=== PATIENT | female | born 1940 | race Caucasian/White ===

== ENCOUNTER → 2016-08-25 | Outpatient (CLI) | payer OTHER ==
[~2016-08-25] VITALS: Ht 152.4 cm; Wt 47.2 kg
[~2016-08-25] MED LIST: ANACIN; ANACIN 400-321 EACH PO; ASPIRIN325 PO; BUTRANS1 EAC1 TD; CARDIZEM CD120 MG PO; CARDIZEM CD180 MG PO; CARDIZEM CD300 MG PO; CIPRO500 MG PO; CIPROFLOXACIN500 M3 PO; COLCRYS0.6 MG PO; DEMADEX10 MG PO; DEMADEX20 MG PO; DILTIAZEM ER180 M1 PO; DYAZIDE 37.5-21 EACH PO; FENTANYL PA12 MCG/HR TD; FLOVENT HFA 2220 MC1 IH; FLOVENT HFA 2220 MC1 INH; FLOVENT HFA10.6 GM; FORTEO; GLYCOLAX POWDER17 G1 PO; HYDROCODON-ACE1 EAC5 PO; HYDROCODONE-AP1 EAC6 PO; INFED100 MG/2 M IV; KCLP 20 MEQ2 MEQ/ML IV; LASIX 40 MG TAB40 M1 PO; LEVOXYL50 MCG PO; LEVOXYL75 MCG PO; LORTAB 7.5-3251 EACH PO; METOLAZONE 2.52.5 M1 PO; METRONIDAZOLE500 M4 PO; MIRALAX17 GM PO; MIRALAX255 GM PO; MOVANTIK25 MG PO; MS CONTIN15 MG PO; NASONEX17 GM NASAL; NEXIUM40 M2 PO; NEXIUM40 MG PO; NITRO SL; NITROSTAT0.4 M1 SUBLING; NORCO 10-325 T1 EACH PO; NORCO 5-325 TA1 EACH PO; PACERONE 200 M200 M1 PO; POTASSIUM CHLORIDE PO; POTASSIUM20 MEQ/15 PO; POTASSIUM20 PO; PREDNISONE 10 M10 M1 PO; PREDNISONE 20 M20 M1 PO; PREDNISONE 5 MG5 M1 PO; PREDNISONE 5 MG5 MG PO; PREMARIN PO; PREMARIN1.25 MG PO; PROVENTIL HFA6.7 G1 INH; PROVENTIL INH; RIFAMPIN 300 M300 M1 PO; TIGAN300 MG PO; TIZANIDINE HCL4 MG PO; TRAMADOL 50 MG50 MG PO; TRAVATAN 0.004%5 ML OPHTHALMIC; TRAVATAN 0.004%5 ML OTIC; TRAVATAN Z5 ML OP; TRAVATAN Z5 ML OPHTHALMIC; TRAVOPROST 0.02.5 ML OPHTHALMIC; ULORIC40 MG PO; VALIUM5 MG PO; VITAMIN B-121000 MC1 IM; VITAMIN D2000 UNIT PO; VOLTAREN GEL 1100 G1 TOP; ZITHROMAX PO
--- NOTE | ~2016-08-25 | HPC ---
[facility] [place] [address] PAIN MANAGEMENT CONSULTATION Name: MASTERJACOBO DILLAN Room #: REG ASIA Shah#: [id number] Admission: 08/25/16 Attend Phys: Dwight Wharton DO Discharge: Date of : 41 Report #: [id number] THIS REPORT FOR: //name// CC: Oral Wharton The patient is a very pleasant 75-year-old female being treated for symptomatic lumbar radiculopathy status post decompressive laminectomy, chronic pain syndrome requiring complex medication management. Last seen in pain clinic on 07/01/2016, continued on baseline medication including MS Contin 15 mg b.i.d., hydrocodone 5/325 2-3 tablets a day, tizanidine was added 4 mg t.i.d., unfortunately this afforded significant nausea and vomiting, and the patient discontinued that medication. She is having some ongoing pain in the right foot. Unfortunately, she has been dissuaded from surgery, which was going to be an amputation of the toe. She is, however, following up the for consideration for colon resection due to significant diverticulitis. She has had at least 3 major bouts requiring hospitalization in the past several years. She has multiple comorbidities; however, and may not be a very good surgical candidate overall. She notes current pain from the back and chronic pain issues is generally is well controlled is ever typically 5 on a 0-10 visual analog scale. Pain primarily in the low back, right hip and groin. Physical exam shows 75-year-old female, BMI is up today 20.3 kilograms per meter squared, last visit she was down about 19.4 kilograms per meter squared. Vital signs stable as noted in the EMR. Alert and oriented to person, place and time, judged to be a reasonable historian. Rises from chair using armrest, moderately antalgic gait, diffuse tenderness across the low back. Slight decreased right hip flexion strength. ASSESSMENT: Symptomatic lumbar radiculopathy status post decompressive laminectomy, chronic pain syndrome requiring complex medication management, stable on baseline medications. We reviewed the fact that opiate medications are being used to provide analgesia adequate to support activities of daily living, not attempting to achieve a specific pain score on the 0-10 Visual Analog Scale. The current opiate medications are providing sufficient analgesia to allow the patient to participate in activities of daily living. The patient is not exhibiting any aberrant behavior suggestive of drug diversion. The patient is not having any adverse reactions to medications. The patient is not suffering from daytime somnolence or mental acuity changes. The patient is managing opiate-induced constipation with appropriate xlon-tkb-dzhzfku agents and dietary considerations. The patient was counseled on concern for caution with operating a motor vehicle while using opiate medications. [address] [address] PAIN MANAGEMENT CONSULTATION Name: JACOBO THAO Room #: REG CL Pablo#: [id number] Admission: 08/25/16 Attend Phys: Dwight Wharton DO Discharge: Date of : 41 Report #: [id number] A physical exam was performed and the patient's functional status was evaluated. All patients with back pain were advised against the bed rest greater than 4 days and were advised to return to normal activities. Pain score assessment was noted and the treatment plan was reviewed with the patient. All current medications, both prescribed and OTC were reviewed and reconciled on the electronic medical record. Tobacco screening was accomplished and smoking cessation was advised when indicated. BMI was noted and diet/exercise modification was recommended for all patients following outside normal parameters. I reviewed with the patient today their responsibilities to safeguard prescription medications, reviewed their responsibility to utilize medications only as prescribed by the physician. They are to seek and receive pain medications only from 1 physician group ( [facility]). They are to use 1 pharmacy and keep the clinic informed if they change pharmacies. Their responsibilities include making followup visits in a timely fashion and to avoid abrupt discontinuation of medication usage. Their responsibilities further include bringing their medications (bottles from the pharmacy with residual pills) to the visit for possible confirmation of pill counts and the patient understands it is their responsibility to submit to random drug screens to ensure both that the medications prescribed are present, and that no other controlled substances are present. All prescriptions provided today were generated electronically. RECOMMENDATION: Continue MS Contin 15 mg b.i.d., hydrocodone 5/325 75 tablets for 30 days. Discontinue tizanidine due to nausea and vomiting. Follow up in 2 months for reevaluation, earlier if needed. <ELECTRONICALLY SIGNED> By: Dwight Wharton DO 08/29/16 1228 1621 0355 Dwight Wharton DO /nt
[2016-08-25 14:12] VITALS: BP 139/79
== END | disposition home or self-care (01) ==
LOC: PAIN 07-15 11:51
DX: M54.16 Radiculopathy, lumbar region (principal); G89.4 Chronic pain syndrome; M25.571 Pain in right ankle and joints of right foot; Z98.890 Other specified postprocedural states

== ENCOUNTER → 2016-11-07 | Outpatient (CLI) | payer OTHER ==
[~2016-11-07] VITALS: Ht 154.9 cm; Wt 48.3 kg
--- NOTE | ~2016-11-07 | HPC ---
[facility] [place] [address] PAIN MANAGEMENT CONSULTATION Name: JACOBO THAO Room #: REG SAIA Shah#: [id number] Admission: 11/07/16 Attend Phys: Dwight Wharton DO Discharge: Date of : 41 Report #: [id number] THIS REPORT FOR: //name// CC: Oral Wharton The patient is a 75-year-old female being treated for symptomatic lumbar radiculopathy status post decompressive laminectomy, neuropathic pain, chronic pain syndrome requiring complex medication management. She was last seen in the pain clinic 08/25/2016 to continue her baseline medication. She returns to pain clinic today in the presence of her who is supportive. We had a prolonged visit from 12:00 to approximately 12:30 greater than 50% of the 25+ minute visit was spent counseling the patient. Pain continues in the low back, right SI area. She has a moderately antalgic gait. She notes she has been having some increasing trouble with chronic diverticulitis and is tentatively scheduled to have a colon resection with a temporary colostomy later this week. She is here for medication refill, noting pain in the low back, hips, right groin with generalized abdominal pain, chronic burning, sharp pain. She rates "10" 0-10 on a visual analog scale. Denies specific myelopathic symptoms at this time. We reviewed her extensive surgical and medical history well-documented on the chart. PHYSICAL EXAMINATION: Shows 75-year-old female with a BMI of 20.1 kg/m2. Again, subjective pain score "10" on a 0-10 visual analog scale. Vital signs generally stable as noted on the EMR. Does not use tobacco products, history of clinical depression. Rises from the chair using armrest. Gait is antalgic favoring the right low back. Positive tenderness over the SI joints. Positive Yina test, positive straight leg raise on the right. Exquisitely tender over the right SI joint. We reviewed the fact that opiate medications are being used to provide analgesia adequate to support activities of daily living, not attempting to achieve a specific pain score on the 0-10 Visual Analog Scale. The current opiate medications are providing sufficient analgesia to allow the patient to participate in activities of daily living. The patient is not exhibiting any aberrant behavior suggestive of drug diversion. The patient is not having any adverse reactions to medications. The patient is not suffering from daytime somnolence or mental acuity changes. The patient is managing opiate-induced constipation with appropriate musx-xnu-hphhsaf agents and dietary considerations. The patient was counseled on concern for caution with operating a motor vehicle while using opiate medications. A physical exam was performed and the patient's functional status was evaluated. All patients with back pain were advised against the bed rest greater than [address] [place] [address] PAIN MANAGEMENT CONSULTATION Name: JACOBO THAO Room #: REG ASIA Shah#: [id number] Admission: 11/07/16 Attend Phys: Dwight Wharton DO Discharge: Date of : 41 Report #: [id number] and were advised to return to normal activities. Pain score assessment was noted and the treatment plan was reviewed with the patient. All current medications, both prescribed and OTC were reviewed and reconciled on the electronic medical record. Tobacco screening was accomplished and smoking cessation was advised when indicated. BMI was noted and diet/exercise modification was recommended for all patients following outside normal parameters. I reviewed with the patient today their responsibilities to safeguard prescription medications, reviewed their responsibility to utilize medications only as prescribed by the physician. They are to seek and receive pain medications only from 1 physician group ( [facility]). They are to use 1 pharmacy and keep the clinic informed if they change pharmacies. Their responsibilities include making followup visits in a timely fashion and to avoid abrupt discontinuation of medication usage. Their responsibilities further include bringing their medications (bottles from the pharmacy with residual pills) to the visit for possible confirmation of pill counts and the patient understands it is their responsibility to submit to random drug screens to ensure both that the medications prescribed are present, and that no other controlled substances are present. All prescriptions provided today were generated electronically. Pain impact score is /70. Opiate risk assessment score is in the low risk. RECOMMENDATION: 1. Continue MS Contin 15 mg b.i.d., hydrocodone 5/325 one tablet 2-3 times a day, 75 tablets for 30 days, Nexium 40 mg daily, tizanidine 4 mg half to 1-3 times a day. 2. We will be happy to consider the patient for right SI and/or lumbar epidural injection at next visit. However, we would want to wait at least a full 6 weeks after surgery. 3. Two months of current medications were given to the patient today, follow up as needed. By: 1741 0811 Dwight Wharton DO /nt
[2016-11-07 11:11] VITALS: BP 145/84
== END ==
LOC: PAIN 06:51
DX: M54.16 Radiculopathy, lumbar region (principal); G62.9 Polyneuropathy, unspecified; G89.4 Chronic pain syndrome

== ENCOUNTER → 2016-11-11 | Outpatient (CLI) | payer OTHER ==
[~2016-11-11] VITALS: Ht 154.9 cm; Wt 48.1 kg
--- NOTE | ~2016-11-11 | HPC ---
[facility] [place] [address] [place] [address] PAIN MANAGEMENT CONSULTATION Name: MASTERJACOBO Room #: REG Getachew Shah#: [id number] Admission: 11/11/16 Attend Phys: Dwight Wharton DO Discharge: Date of : 41 Report #: [id number] THIS REPORT FOR: //name// CC: Oral Wharton DATE OF SERVICE: 11/11/2016 The patient is a very pleasant 75-year-old female last seen in the pain clinic 11/07/2016, typically treated for lumbar radiculopathy status post decompressive laminectomy, neuropathic pain component, SI joint dysfunction, lumbosacral spondylosis, requiring complex medication management. We had continued the patient on baseline medication at last visit. We are planning on proceeding with interventional therapy, but ostensibly, she was scheduled for colon resection this week. She will be followed up with her GI doctor. Apparently, CT scan is showing resolution of diverticular symptoms and they have elected to postpone her bowel surgery. She presents to pain clinic today with ongoing pain across the low back radiating to the groin bilaterally, does not radiate below the hips. PHYSICAL EXAMINATION: Shows positive Yina test bilaterally with tenderness over the SI joints. We would like to proceed with interventional therapy today. Continue baseline medication unchanged. ASSESSMENT: Symptomatic sacroiliac joint dysfunction, lumbosacral spondylosis. PROCEDURE: Bilateral SI joint injections under fluoroscopy. PROCEDURE NOTE: After written and informed consent was obtained including risk of infection, nerve trauma, increased pain and weakness, the patient wishes to proceed. The patient was taken to the fluoroscopy suite, placed in the prone position. The sacroiliac joint was visualized using the C-arm, turned in an oblique fashion to align the joint. The skin overlying the area was cleansed with ChloraPrep. Skin wheal with Xylocaine was raised. A 22 gauge spinal needle was inserted into the inferior aspect of the joint. A low volume extension tubing was then attached to the needle after the stylet was removed. Negative aspiration was accomplished. A 1 mL of Omnipaque was injected which showed spread within the SI joint. 40 mg triamcinolone plus 2 mL of 0.5% preservative-free bupivacaine was injected into the joint. Needle was removed. Attention was then turned to the contralateral joint which was treated in an identical fashion. After both needles were removed the prep was washed off. Two Band-Aids were applied over the puncture sites. The patient was allowed to ambulate to the recovery room, monitored for an appropriate period of time, discharged [place] [address] PAIN MANAGEMENT CONSULTATION Name: MASTERJACOBO GRIMALDO Room #: REG [facility] Pablo#: [id number] Admission: 11/11/16 Attend Phys: Dwight Wharton DO Discharge: Date of : 41 Report #: [id number] Fluoroscopy time was 4 seconds. <ELECTRONICALLY SIGNED> By: Dwight Wharton DO 11/14/16 0750 0858 1039 Dwight Wharton DO /nt
[2016-11-11 08:17] VITALS: BP 141/73
== END ==
LOC: PAIN 07:05
DX: M53.3 Sacrococcygeal disorders, not elsewhere classified (principal); M54.16 Radiculopathy, lumbar region; G62.9 Polyneuropathy, unspecified; M47.817 Spondylosis without myelopathy or radiculopathy, lumbosacral region

== ENCOUNTER 2017-01-10 08:08 | Inpatient (IN) | payer OTHER ==
[~2017-01-10] VITALS: Ht 152.4 cm; Wt 48.8 kg
[2017-01-10] VITALS (29 sets, daily range): BP systolic 103–179; BP diastolic 63–108
--- NOTE | ~2017-01-10 | EKG ---
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 Electronically Signed On 01-10-2017 21:56:19 CDT by Jd Dyson [email or web address] <ELECTRONICALLY SIGNED> By: Jd Dyson MD 01/10/17 2156 0835 0835 MD DEBBY Villafana
--- NOTE | ~2017-01-10 | EKG ---
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
--- NOTE | ~2017-01-10 | 2DMMODE ---
[facility] [address] [place] [address] 2 D/M-MODE ECHOCARDIOGRAM Name: MASTERJACOBO GRIMALDO Room #: 250-P ADM IN M.R.#: [id number] Admission: 01/10/17 Attend Phys: Reji Pyle Discharge: Date of : 42 Date of Service: 01/10/17 1624 Report #: [id number] THIS REPORT FOR: //name// APPROVED REPORT Study performed: 01/10/2017 14:49:32 EXAM: Comprehensive 2D, Doppler, and color-flow Echocardiogram Patient Location: Bedside Room #: 250 Status: routine Other Information Study Quality: Adequate Indications CVA. Hx: Pacemaker, TIA, Afib, HTN Echo Enhancing Agent Indication: Rule out Shunt Agent(s) / Amount(s) Used: Agitated Saline 6 cc 2D Dimensions RVDd: 31.98 mm LVEF(%): 58.53 (>50%) IVSd: 11.47 (7-11mm) LVOT Diam: 19.53 (18-24mm) LVDd: 41.37 mm PWd: 9.70 (7-11mm) Ascending Ao: 27.57 (22-36mm) LVDs: 28.72 (25-40mm) Aortic Root: 29.77 mm Dougherty's LVEF: 58.53 % Volumes Left Atrial Volume (Systole) Single Plane 4CH: 14.93 mL Single Plane 2CH: 34.58 mL LA ESV Index: 17.00 mL/m2 Aortic Valve AoV Peak Andrea.: 0.90 m/s AO Peak Gr.: 3.27 mmHg LVOT Max P.64 mmHg LVOT Max V: 0.64 m/s LLOYD Vmax: 2.12 cm2 Mitral Valve E/A Ratio: 1.2 MV Decel. Time: 170.99 ms [facility] [place] [address] 2 D/M-MODE ECHOCARDIOGRAM Name: JACOBO THAO Room #: 250-P [facility] IN M.R.#: [id number] Admission: 01/10/17 Attend Phys: Reji Pyle Discharge: Date of : 42 Date of Service: 01/10/17 1624 Report #: [id number] MV E Max Andrea.: 0.60 m/s MV A Andrea.: 0.52 m/s MV PHT: 49.59 ms IVRT: 119.95 ms Pulmonary Valve PV Peak Andrea.: 0.69 m/s PV Peak Gr.: 1.89 mmHg Pulmonary Vein P Vein S: 0.39 m/s P Vein A: 0.18 m/s P Vein D: 0.39 m/s P Vein S/D Ratio: 1.00 Tricuspid Valve TR Peak Andrea.: 2.74 m/s RAP Estimate: 5.00 mmHg TR Peak Gr.: 29.97 mmHg PA Pressure: 35.00 mmHg Left Ventricle The left ventricle is normal size. There is normal left ventricular wall thickness. Left ventricular systolic function is severely decreased. LVEF is 25-30%. Grade II - pseudonormal filling dynamics. Right Ventricle The right ventricle is normal size. Right ventricle is hypokinetic. Atria The left atrium size is normal. Injection of bubbles documented an interatrial shunt. The right atrium size is normal. Aortic Valve Aortic valve is mildly calcified. Trace aortic regurgitation. There is no aortic valvular stenosis. Mitral Valve The mitral valve is normal in structure. Moderate mitral regurgitation. No evidence of mitral valve stenosis. Tricuspid Valve The tricuspid valve is normal in structure. There is mild to moderate tricuspid regurgitation. The right atrial pressure is estimated at 5 mmHg. There is mild pulmonary hypertension with an estimated PAP of 35mmHg. [facility] [address] [place] [address] 2 D/M-MODE ECHOCARDIOGRAM Name: JACOBO THAO Room #: 250-P ADM IN .R.#: [id number] Admission: 01/10/17 Attend Phys: Reji Pyle Discharge: Date of : 42 Date of Service: 01/10/17 1624 Report #: [id number] Pulmonic Valve The pulmonary valve is normal in structure. Mild pulmonic regurgitation. Great Vessels The aortic root is normal in size. The ascending aorta is normal in size. IVC is normal in size and collapses >50% with inspiration. Pericardium There is no pericardial effusion. <Conclusion> The left ventricle is normal size. Left ventricular systolic function is severely decreased. LVEF is 25-30%. The left atrium size is normal. Injection of bubbles documented an interatrial shunt. Aortic valve is mildly calcified. Trace aortic regurgitation. The mitral valve is normal in structure. Moderate mitral regurgitation. The tricuspid valve is normal in structure. There is mild to moderate tricuspid regurgitation. The right atrial pressure is estimated at 5 mmHg. There is mild pulmonary hypertension with an estimated PAP of 35mmHg. <ELECTRONICALLY SIGNED> By: Esteban Gaona MD 01/10/17 1624 1624 1624 Esteban Gaona MD /INF
--- NOTE | ~2017-01-10 | EKG ---
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 JAMES : 1940 Requested By: Stephania Ruvalcaba Order Number: [id number] MD: Measurements Intervals [place] Rate: 74 P: 66 [place]: 241 QRS: 265 QRSD: 97 T: -65 QT: 440 QTc: 489 Interpretive Statements Atrial-sensed ventricular-paced complexes No further analysis attempted due to paced rhythm Compared to ECG 01/18/2014 11:04:17 Sinus rhythm no longer present First degree AV block no longer present Incomplete right bundle-branch block no longer present Myocardial infarct finding no longer present [email or web address] By: 1245 1245 [place] /EPI
--- NOTE | ~2017-01-10 | HC ---
[facility] [place] [address] [place] [address] CONSULTATION Name: JACOBO THAO Room #: 250-P ADM IN M.R.#: [id number] Admission: 01/10/17 Attend Phys: Reji Merlos Discharge: Date of : 41 Report #: [id number] THIS REPORT FOR: //name// CC: Reji Rodriguez DATE OF SERVICE: 01/11/2017 HISTORY OF PRESENT ILLNESS: The patient is a 76-year-old white female who was admitted with right facial numbness and noted to have initial dense right-sided hemiparesis. CT scan showed an old lacunar infarct. She was diagnosed with an acute CVA with right-sided weakness. She was not a candidate for an MRI scan with her prior cardiac and gastric pacemakers. She did undergo TPA and has had improvement of her right-sided weakness. She still has decreased strength, but it is improved from before. We are seeing her in rehabilitation medicine consultation. PAST MEDICAL HISTORY: Extensive as noted in the admission note. She has had cardiac ablation x 2, open heart surgery to repair a hole in her heart from cardiac ablation. She has had pacemaker placement in her heart. She also has a history of gastroparesis and had a gastric stimulator in 10/2009. She had a prior TIA in 1997, history of atrial fibrillation, vagus nerve damage, left breast biopsies x 2 which were negative, right rotator cuff repair, right carpal tunnel release. PAST SURGICAL HISTORY: As noted above. HABITS: No history of tobacco or alcohol. FAMILY HISTORY: Cancer, COPD, dementia. ALLERGIES: REGLAN, SPIRONOLACTONE, CLARITHROMYCIN, ERYTHROMYCIN, CEFOXITIN, CEFAZOLIN. 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 There are 3 steps in the back. We have to go across the lawn under the patio. She did not utilize gait aids premorbidly. She and her are both retired. REVIEW OF SYSTEMS: Complains of right-sided weakness in the right upper and lower extremity. Has decreased sensation compared to the left. No focal extremity pain complaints are noted. Did not complain of any headache, no bowel or bladder changes. PHYSICAL EXAMINATION: She is a slender 76-year-old white female in no obvious distress. Last recorded temperature is 36.4, pulse 85, respirations 15, blood pressure 132/84. The patient is alert. She appears to have a right eye ptosis. [address] [address] CONSULTATION Name: JACOBO THAO Room #: 250-P [facility] IN M.R.#: [id number] Admission: 01/10/17 Attend Phys: Reji Merlos Discharge: Date of : 41 Report #: [id number] Can follow basic 1 step commands. Facies are otherwise symmetric. She has functional range of motion and strength of the left upper and left lower extremity. Right upper extremity strength is probably a grade 3+/5, right lower extremity is 3+/5. Appears to have some mild decreased sensory deficit right upper and right lower extremity. Tone was not increased and there was no clonus at the ankle and negative Cynthia's. She was max assist for sit to stand and took 4 steps max assist handheld assistance. ASSESSMENT: A 76-year-old white female with the following problem list: 1. Acute cerebrovascular accident with right-sided weakness. 2. Status post TPA with some improvement. 3. Right-sided hemisensory decrease. 4. Cardiac pacemaker. 5. Gastric stimulator. 6. History of congestive heart failure. 7. Hypertension. 8. Atrial fibrillation. 9. Cardiac ablation x 2. PLAN: Would anticipate the patient should be a candidate for an acute in-hospital inpatient rehabilitation stay as she further medically stabilizes. Discussion with the patient and her . We will be glad to follow along with you. By: 1237 00 Tuan Richardson MD /nt
[2017-01-10 09:24] LABS: HEMATOCRIT 46.4 % (37.0-47.0); HEMOGLOBIN 15.2 gm/dL (12.0-15.0); MCHC 32.7 g/dL (28.0-37.0); MCV 94.7 fL (80.0-100.0); RBC 4.9 mil/uL (4.20-5.00); RDW 15.7 % (10.5-14.5); WBC 13.5 thou/uL (4.0-11.0)
[2017-01-10 09:34] LABS: ANION GAP 11 mmol/L (7-16); BUN 29 mg/dL (7-18); CALCIUM 9.3 mg/dL (8.5-10.1); CHLORIDE 106 mmol/L (98-107); CO2 23 mmol/L (21-32); CREATININE 1.7 mg/dL (0.6-1.0); GLUCOSE 105 mg/dL (74-106); POTASSIUM 3.5 mmol/L (3.5-5.1); SODIUM 140 mmol/L (136-145)
[2017-01-10 09:42] LABS: TROPONIN-I < 0.04 ng/mL (<0.04-0.07)
[2017-01-10 17:45] LABS: URINE BILIRUBIN NEGATIVE (Negative); URINE BLOOD 3+ (Negative); URINE COLOR YELLOW; URINE GLUCOSE-RANDOM* NEGATIVE (Negative); URINE KETONES TRACE (Negative); URINE LEUKOCYTES-REFLEX TRACE (Negative); URINE PROTEIN (DIPSTICK) 1+ (Negative); URINE SPECIFIC GRAVITY 1.015 (1.003-1.035)
[2017-01-10 18:45] LABS: SQUAMOUS 0-3 Few /LPF (0-3); URINE RBC >20 Many /HPF (0-2)
[2017-01-10 18:46] LABS: CASTS None Seen /LPF (None Seen); CRYSTALS None Seen /LPF (None Seen); URINE WBC-REFLEX 0-5 Rare /HPF (0-5)
[2017-01-11] VITALS (36 sets, daily range): BP systolic 60–148; BP diastolic 33–118
[2017-01-11 03:08] LABS: GLYCOHEMOGLOBIN (HGB A1C) 5.2 % (4.8-5.6)
[2017-01-11 06:31] LABS: CHOLESTEROL 174 mg/dL (<200); HDL CHOLESTEROL 67 mg/dL (>40); LDL CHOLESTEROL 77 mg/dL (<100); TC:HDL 2.6 Ratio (Not establshd); TRIGLYCERIDE 152 mg/dL (<150); VLDL 30 mg/dL (<40)
[2017-01-11 06:32] LABS: SERUM ASSESSMENT Clear
[2017-01-11 06:56] LABS: TSH 2.71 uIU/mL (0.358-3.740)
[2017-01-11 10:47] LABS: TROPONIN-I 0.53 ng/mL (<0.04-0.07)
[2017-01-12] VITALS (15 sets, daily range): BP systolic 85–129; BP diastolic 57–102
[2017-01-12 04:39] LABS: ALBUMIN 2.7 g/dL (3.4-5.0); CALCIUM 8.6 mg/dL (8.5-10.1); CREATININE 1.9 mg/dL (0.6-1.0); POTASSIUM 4.2 mmol/L (3.5-5.1)
[2017-01-13 04:23] VITALS: BP 159/54
[2017-01-13 06:25] LABS: ALBUMIN 3.3 g/dL (3.4-5.0); CALCIUM 9.3 mg/dL (8.5-10.1); CREATININE 2.1 mg/dL (0.6-1.0); POTASSIUM 4.4 mmol/L (3.5-5.1); TOTAL BILIRUBIN 0.7 mg/dL (<0.1-1.0); TOTAL PROTEIN 7.1 g/dL (6.4-8.2)
[2017-01-13 08:08] VITALS: BP 128/75
[2017-01-13] MEDS ORDERED: ASPIR 8181 MG PO (09:24)
[2017-01-13] MEDS ORDERED: CIPRO250 M1 PO (09:24)
[2017-01-13] MEDS ORDERED: CARVEDILOL3.125 MG PO (09:24)
[2017-01-13] MEDS ORDERED: HYDROCODON-ACE1 EAC7 PO (09:25)
[2017-01-13] MEDS ORDERED: TOPAMAX 25 MG T25 M1 PO (09:25)
[2017-01-14] MEDS ORDERED: COUMADIN 2.5MG2.5 M1 PO (11:44)
[2017-01-14] MEDS ORDERED: TOPAMAX 25 MG T25 M1 PO (11:44)
[2017-01-14] MEDS ORDERED: CIPRO250 M1 PO (11:45)
[2017-01-16 14:11] LABS: PROTEIN C ANTIGEN* 100 % (60-150)
== END 2017-01-13 17:31 | DRG 61 ==
LOC: ER 08:08 → EROBS 09:59 → ICU 09:59 → 4W 11:12 → ICU 11:22 → 4S 01-12 10:59
PROVIDERS: Emergency Medicine; Hospitalist; Nurse Practitioner; Nurse Practitioner Gerontology; Psychiatry & Neurology Neurology
DX: I63.9 Cerebral infarction, unspecified (principal); E43 Unspecified severe protein-calorie malnutrition; I50.20 Unspecified systolic (congestive) heart failure; I13.0 Hypertensive heart and chronic kidney disease with heart failure and stage 1 through stage 4 chronic kidney disease, or unspecified chronic kidney disease; G81.91 Hemiplegia, unspecified affecting right dominant side; N17.9 Acute kidney failure, unspecified; J45.50 Severe persistent asthma, uncomplicated; M19.90 Unspecified osteoarthritis, unspecified site; E11.22 Type 2 diabetes mellitus with diabetic chronic kidney disease; G89.29 Other chronic pain; M54.5 Low back pain; I48.91 Unspecified atrial fibrillation; E78.5 Hyperlipidemia, unspecified; K21.9 Gastro-esophageal reflux disease without esophagitis; E03.9 Hypothyroidism, unspecified; D72.829 Elevated white blood cell count, unspecified; H40.9 Unspecified glaucoma; I49.5 Sick sinus syndrome; N18.9 Chronic kidney disease, unspecified; E11.43 Type 2 diabetes mellitus with diabetic autonomic (poly)neuropathy; K31.84 Gastroparesis; Z98.42 Cataract extraction status, left eye; Z96.1 Presence of intraocular lens; Z90.710 Acquired absence of both cervix and uterus; Z79.899 Other long term (current) drug therapy; Z90.721 Acquired absence of ovaries, unilateral; Z88.1 Allergy status to other antibiotic agents; Z88.8 Allergy status to other drugs, medicaments and biological substances; Z85.828 Personal history of other malignant neoplasm of skin; Z87.442 Personal history of urinary calculi; Z98.41 Cataract extraction status, right eye; Z95.0 Presence of cardiac pacemaker; Z79.82 Long term (current) use of aspirin; Z87.440 Personal history of urinary (tract) infections; Z79.4 Long term (current) use of insulin; Z91.048 Other nonmedicinal substance allergy status; Z80.8 Family history of malignant neoplasm of other organs or systems; Z81.8 Family history of other mental and behavioral disorders; Z82.5 Family history of asthma and other chronic lower respiratory diseases
CPT/HCPCS: 10100; 10203

== ENCOUNTER 2017-01-13 15:12 | Inpatient (IN) | payer OTHER ==
[~2017-01-13] VITALS: Ht 152.4 cm; Wt 47.6 kg
--- NOTE | ~2017-01-13 | H ---
[facility] [place] [address] HISTORY AND PHYSICAL Name: JACOBO THAO Room #: 503-P [facility] M.R.#: [id number] Admission: 01/13/17 Attend Phys: Tuan Richardson MD Discharge: 01/14/17 Date of : 42 Report #: [id number] THIS REPORT FOR: //name// CC: Tuan Rodriguez DATE OF SERVICE: 01/13/2017 HISTORY OF PRESENT ILLNESS: The patient is a 76-year-old white female originally admitted to [facility] with right facial numbness and initial dense right-sided hemiparesis. She was diagnosed with an acute CVA with right-sided weakness. She was not a candidate for an MRI scan due to her prior cardiac and gastric pacemakers. She did undergo a TPA with improvement of her right-sided weakness. She is still noted to have decreased strength and functional mobility and ADLs with a decline from her premorbid overall functional level. She was admitted for acute in-hospital inpatient rehabilitation. PAST MEDICAL HISTORY: Extensive including cardiac ablation x 2, open heart surgery to repair a hole in her heart from cardiac ablation. She has had a pacemaker placed in her heart. She also has a history of gastroparesis with a gastric stimulator in 2009. She had a prior TIA in 1997, a history of atrial fibrillation, vagus nerve damage, left breast biopsies x 2, which were negative, right rotator cuff repair, right carpal tunnel release. PAST SURGICAL HISTORY: As noted above. HABITS: No history of tobacco or alcohol. FAMILY HISTORY: Cancer, COPD, dementia. ALLERGIES: REGLAN, SPIRONOLACTONE, CLARITHROMYCIN, ERYTHROMYCIN, CEFOXITIN, CEFAZOLIN. MEDICATIONS: Please see the full medication listing. Each of these was individually reconciled upon the patient's admission. They include her over the counters. 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 There are 3 steps in the back. She would have to go over the lawn onto the patio. She did not utilize gait aids premorbidly. The patient and are both retired. REVIEW OF SYSTEMS: She has the right-sided weakness, which has improved. No focal extremity complaints. [facility] [address] [place] [address] HISTORY AND PHYSICAL Name: JACOBO THAO Room #: 503-P [facility] M.R.#: [id number] Admission: 01/13/17 Attend Phys: Tuan Richardson MD Discharge: 01/14/17 Date of : 41 Report #: [id number] PHYSICAL EXAMINATION: GENERAL: Slender 76-year-old white female. VITAL SIGNS: Last recorded temperature 36.6, pulse 68, respirations 16, blood pressure 131/72. HEENT: Appears to have right eye ptosis, follows basic commands. Face is otherwise symmetric. CHEST: Sounded clear to auscultation. CARDIOVASCULAR: Regular rate and rhythm. ABDOMEN: Bowel sounds positive, nontender. GENITOURINARY AND RECTAL: Deferred. MUSCULOSKELETAL: She has functional range of motion and strength of left upper and left lower extremity. Right upper and right lower extremity strength appear improved at 4- to 4/5. Tone was not increased. There was negative Cynthia's. No clonus. Transfers are standby assistance. Gait was standby assistance 100 feet. ASSESSMENT: A 76-year-old white female with the following problem list: 1. Acute cerebrovascular accident with improved right-sided weakness. 2. Status post TPA with improvement. 3. Right-sided hemisensory decrease. 4. Cardiac pacemaker. 5. Gastric stimulator. 6. History of congestive heart failure. 7. Hypertension. 8. Atrial fibrillation. 9. Cardiac ablation x 2. PLAN: The patient is admitted for acute in-hospital inpatient rehabilitation. From a postadmission physician evaluation perspective, there are no relevant changes since the preadmission screening. Please see the above review of prior and current medical and functional conditions and comorbidities. Please see the patient's previous and current functional status. As far as risk of complications, she has the multiple medical comorbidities as noted above. Initial plan of care involves the interdisciplinary acute inpatient rehabilitation program with goal of maximizing her functional independence so that she can hopefully return back to her prior living situation. Prognosis is reasonably good. Would anticipate a fairly short length of stay. Potential barriers would include her multiple medical comorbidities and decreased functional status. The patient meets diagnostic criteria for an acute in-hospital inpatient rehabilitation stay. She meets medical necessity criteria. She does have the [address] [address] HISTORY AND PHYSICAL Name: MASTERJACOBO DILLAN Room #: 503-P [facility] IN M.R.#: [id number] Admission: 01/13/17 Attend Phys: Tuan Richardson MD Discharge: 01/14/17 Date of : 41 Report #: [id number] tolerance for an acute rehabilitation level of care and has appropriate discharge goals back to the home setting. <ELECTRONICALLY SIGNED> By: Tuan Richardson MD 01/24/17 1821 1115 1247 Tuan Richardson MD /nt
[~2017-01-13 15:12] MED LIST changes: +ASPIR 8181 MG PO; +CARVEDILOL3.125 MG PO; +CIPRO250 M1 PO; +HYDROCODON-ACE1 EAC7 PO; +TOPAMAX 25 MG T25 M1 PO
[2017-01-13 17:12] VITALS: BP 148/90
[2017-01-14 04:15] VITALS: BP 131/72
[2017-01-14 05:17] LABS: HEMATOCRIT 43.5 % (37.0-47.0); HEMOGLOBIN 14.5 gm/dL (12.0-15.0); MCH 31.1 pg (26.0-34.0); MCHC 33.4 g/dL (28.0-37.0); MCV 93.3 fL (80.0-100.0); RBC 4.66 mil/uL (4.20-5.00); RDW 15.8 % (10.5-14.5); WBC 14.7 thou/uL (4.0-11.0)
[2017-01-14 05:28] LABS: CALCIUM 9.1 mg/dL (8.5-10.1); CREATININE 2.3 mg/dL (0.6-1.0); POTASSIUM 3.8 mmol/L (3.5-5.1)
[2017-01-14] MEDS ORDERED: COUMADIN 2.5MG2.5 M1 PO (11:44)
[2017-01-14] MEDS ORDERED: TOPAMAX 25 MG T25 M1 PO (11:44)
[2017-01-14] MEDS ORDERED: CIPRO250 M1 PO (11:45)
[2017-01-14 12:14] VITALS: BP 137/88
== END 2017-01-14 12:45 | disposition home health service (06) | DRG 65 ==
PROVIDERS: Physical Medicine & Rehabilitation
DX: I63.9 Cerebral infarction, unspecified (principal); G81.91 Hemiplegia, unspecified affecting right dominant side; I13.0 Hypertensive heart and chronic kidney disease with heart failure and stage 1 through stage 4 chronic kidney disease, or unspecified chronic kidney disease; N39.0 Urinary tract infection, site not specified; E78.5 Hyperlipidemia, unspecified; E03.9 Hypothyroidism, unspecified; E11.43 Type 2 diabetes mellitus with diabetic autonomic (poly)neuropathy; E11.22 Type 2 diabetes mellitus with diabetic chronic kidney disease; N18.9 Chronic kidney disease, unspecified; I50.9 Heart failure, unspecified; K31.84 Gastroparesis; I48.91 Unspecified atrial fibrillation; Z88.1 Allergy status to other antibiotic agents; Z88.8 Allergy status to other drugs, medicaments and biological substances; Z95.0 Presence of cardiac pacemaker; Z79.899 Other long term (current) drug therapy; Z79.82 Long term (current) use of aspirin; Z80.9 Family history of malignant neoplasm, unspecified; Z81.8 Family history of other mental and behavioral disorders; Z83.6 Family history of other diseases of the respiratory system
CPT/HCPCS: 10112

== ENCOUNTER → 2017-02-24 | Outpatient (CLI) | payer OTHER ==
[~2017-02-24] VITALS: Ht 152.4 cm; Wt 47.6 kg
[~2017-02-24] MED LIST changes: +COUMADIN 2.5MG2.5 M1 PO
--- NOTE | ~2017-02-24 | HPC ---
[facility] [place] [address] [address] PAIN MANAGEMENT CONSULTATION Name: JACOBO THAO Room #: REG Getachew Rider.#: [id number] Admission: 02/24/17 Attend Phys: Dwight Wharton DO Discharge: Date of : 41 Report #: [id number] THIS REPORT FOR: //name// CC: Oral Wharton HISTORY OF PRESENT ILLNESS: The patient is a 76-year-old female well known to the pain clinic, typically treated for lumbar radiculopathy status post decompressive laminectomy, neuropathic pain requiring complex medication management. She is seen in the presence of her today, 11/11/2016. She was seen today for a prolonged visit from 8:43 to 9:10. Greater than 50% of this 25+ minute visit was spent counseling the patient. In the interval since we last saw her, she was admitted to the hospital 01/10/2017 via EMS for what turned out to be a cerebrovascular accident. She stated that she had some right eye drooping and numbness in the right cheek. She did have tissue plasminogen activator injected and she is now on Coumadin. She notes that her MS Contin 15 mg b.i.d. was stopped in the hospital and she has now been off of it for about 6 weeks. She does note ongoing pain in her back, bilateral hips and legs, rates at a 4 on a VAS scale. Pain is exacerbated with standing, walking and sitting. She also notes a pressure sensation in her head with a chronic headache. This morning, she had an episode of epistaxis. She is hypertensive today. Initial blood pressure was quite elevated at 192/97 with the automated cuff, manual cuff showed blood pressure 174/94. Pulse 79, respirations are 14. The patient discontinued tizanidine due to some cognitive impairment. She states she still feels "tired" and has to pace her work. States she has pain that interferes with function and pain that interferes with sleep as well. PHYSICAL EXAMINATION: Shows a 76-year-old female, BMI is 20.5 kilograms per meter squared. Hypertensive as noted in the chief complaint. They do tell me they have been checking her blood pressure at home, it has been running in the 150 systolic over 80-90 diastolic range. Cranial nerves 2-12 are grossly intact. She appears a little "scattered" in her thought, difficult to tell if this is stress or residual of the CVA. Upper extremity strength is generally preserved and no objective facial asymmetry. Diffuse tenderness across the low back. Lumbar flexion is limited. Gait is tandem, but lower extremity strength is diminished. We reviewed the fact that opiate medications are being used to provide analgesia adequate to support activities of daily living, not attempting to achieve a specific pain score on the 0-10 Visual Analog Scale. The current opiate medications are providing sufficient analgesia to allow the patient to participate in activities of daily living. The patient is not exhibiting any aberrant behavior suggestive of drug diversion. The patient is not having any adverse reactions to medications. The patient is not suffering from daytime [address] [address] PAIN MANAGEMENT CONSULTATION Name: JACOBO THAO Room #: REG ASIA Shah#: [id number] Admission: 02/24/17 Attend Phys: Dwight Wharton DO Discharge: Date of : 41 Report #: [id number] somnolence or mental acuity changes. The patient is managing opiate-induced constipation with appropriate [id number]-ilorsxv agents and dietary considerations. The patient was counseled on concern for caution with operating a motor vehicle while using opiate medications. A physical exam was performed and the patient's functional status was evaluated. All patients with back pain were advised against the bed rest greater than 4 days and were advised to return to normal activities. Pain score assessment was noted and the treatment plan was reviewed with the patient. All current medications, both prescribed and OTC were reviewed and reconciled on the electronic medical record. Tobacco screening was accomplished and smoking cessation was advised when indicated. BMI was noted and diet/exercise modification was recommended for all patients following outside normal parameters. I reviewed with the patient today their responsibilities to safeguard prescription medications, reviewed their responsibility to utilize medications only as prescribed by the physician. They are to seek and receive pain medications only from 1 physician group ( [facility]). They are to use 1 pharmacy and keep the clinic informed if they change pharmacies. Their responsibilities include making followup visits in a timely fashion and to avoid abrupt discontinuation of medication usage. Their responsibilities further include bringing their medications (bottles from the pharmacy with residual pills) to the visit for possible confirmation of pill counts and the patient understands it is their responsibility to submit to random drug screens to ensure both that the medications prescribed are present, and that no other controlled substances are present. All prescriptions provided today were generated electronically. ASSESSMENT: 1. Lumbar radiculopathy status post decompressive laminectomy, neuropathic pain requiring complex medication management. 2. Ongoing headache status post recent cerebrovascular accident. 3. Epistaxis with Coumadin. 4. Hypertension noted today. RECOMMENDATION: 1. We will resume MS Contin, but use simply 115 mg tablet at bedtime. Continue with hydrocodone 5/325 one tablet 2 or 3 times a day, limit 75 tablets. I have taken the liberty of writing for 1 month of these medications. I strongly suggest she follow up with Dr. Rodriguez for evaluation of hypertension. With ongoing headache and hypertension, she may benefit from a low dose either calcium channel or beta cynthia type agent. It may help with both headache and hypertension. [facility] [address] [place] [address] PAIN MANAGEMENT CONSULTATION Name: JACOBO THAO [facility] [id number] Admission: 02/24/17 Attend Phys: Dwight Wharton DO Discharge: Date of : 41 Report #: [id number] I will defer to Dr. Rodriguez in this latter regard. I will see her back in 1 month for reevaluation. <ELECTRONICALLY SIGNED> By: Dwight Wharton DO 02/27/17 1427 1053 1215 Dwight Wharton DO /nt
[2017-02-24 08:34] VITALS: BP 192/97
== END | disposition home or self-care (01) ==
LOC: PAIN 07:37
DX: M54.16 Radiculopathy, lumbar region (principal); Z98.890 Other specified postprocedural states; G62.9 Polyneuropathy, unspecified; I10 Essential (primary) hypertension; R04.0 Epistaxis

== ENCOUNTER → 2017-03-24 | Outpatient (CLI) | payer OTHER ==
[~2017-03-24] VITALS: Ht 152.4 cm; Wt 49.5 kg
[~2017-03-24] MED LIST changes: +LOPRESSOR25 PO
--- NOTE | ~2017-03-24 | HPC ---
[facility] [place] [address] PAIN MANAGEMENT CONSULTATION Name: JACOBO THAO Room #: REG Getachew Shah#: [id number] Admission: 03/24/17 Attend Phys: Dwight Wharton DO Discharge: Date of : 41 Report #: [id number] THIS REPORT FOR: //name// CC: Oral Wharton SUBJECTIVE: The patient is a 76-year-old female last seen in pain clinic on 02/24/2017. The patient had a CVA, was in the hospital in December. They weaned off all MS Contin. I started back MS Contin 15 mg at bedtime in last visit, continued hydrocodone 5/325 one tablet 2-3 times a day, limit 75 tablets for 30 days. She returns to the pain clinic today noting that medications are generally providing sufficient analgesia to participate in activities of daily living, but she is having some increasing pain in her bilateral neck and shoulders. Right-sided weakness is overall improving, though she still has some modest asymmetry in the right side of the face. She describes pain as an 8-9 on VAS; burning, sharp, stabbing pain, back, both hips with ongoing headaches, discrete. PHYSICAL EXAMINATION: Shows a 76-year-old female, BMI is 21.3 kilograms per meter squared. Vital signs are stable as noted in the EMR. Rises from the chair using armrest. Gait is generally tandem, though a little bit ataxic. She does have tenderness and trigger points noted in the bilateral trapezius and splenius capitis. Mid back is otherwise unremarkable. Lumbar flexion is good. Lower extremity strength is symmetric, though diminished. Straight leg raise is negative. We reviewed the fact that opiate medications are being used to provide analgesia adequate to support activities of daily living, not attempting to achieve a specific pain score on the 0-10 Visual Analog Scale. The current opiate medications are providing sufficient analgesia to allow the patient to participate in activities of daily living. The patient is not exhibiting any aberrant behavior suggestive of drug diversion. The patient is not having any adverse reactions to medications. The patient is not suffering from daytime somnolence or mental acuity changes. The patient is managing opiate-induced constipation with appropriate dqrs-xqt-cxekzdc agents and dietary considerations. The patient was counseled on concern for caution with operating a motor vehicle while using opiate medications. A physical exam was performed and the patient's functional status was evaluated. All patients with back pain were advised against the bed rest greater than 4 days and were advised to return to normal activities. Pain score assessment was noted and the treatment plan was reviewed with the patient. All current medications, both prescribed and OTC were reviewed and reconciled on the electronic medical record. Tobacco screening was accomplished and smoking cessation was advised when indicated. BMI was noted and diet/exercise modification was recommended for all patients following outside normal parameters. [address] [address] PAIN MANAGEMENT CONSULTATION Name: MASTERJACOBO GRIMALDO Room #: REG CL Pablo#: [id number] Admission: 03/24/17 Attend Phys: Dwight Wharton DO Discharge: Date of : 41 Report #: [id number] I reviewed with the patient today their responsibilities to safeguard prescription medications, reviewed their responsibility to utilize medications only as prescribed by the physician. They are to seek and receive pain medications only from 1 physician group ( [facility]). They are to use 1 pharmacy and keep the clinic informed if they change pharmacies. Their responsibilities include making followup visits in a timely fashion and to avoid abrupt discontinuation of medication usage. Their responsibilities further include bringing their medications (bottles from the pharmacy with residual pills) to the visit for possible confirmation of pill counts and the patient understands it is their responsibility to submit to random drug screens to ensure both that the medications prescribed are present, and that no other controlled substances are present. All prescriptions provided today were generated electronically. ASSESSMENT: Lumbar radiculopathy status post decompressive laminectomy and neuropathic pain requiring complex medication management, status post cerebrovascular accident, on Coumadin, component of myofascial pain. RECOMMENDATIONS: 1. After discussion with the patient and her , they would like to continue MS Contin 15 mg at bedtime, increase hydrocodone 5/325 from 75 to 90 tablets for 30 days. She can use 1 up to 3 times a day. Encourage range of motion, balance exercises and stability exercises. I did personally review balance exercises with the patient today. 2. Acute exacerbation of myofascial pain. PROCEDURE: Trigger point injections x 4. DESCRIPTION OF PROCEDURE: After written informed consent was obtained, the patient was placed in the seated position. Skin overlying the bilateral trapezius and splenius capitis muscles were cleansed with alcohol using a 25-gauge needle, 40 mg triamcinolone plus 8 mL of 0.5% preservative-free bupivacaine was injected into and around the trigger points. Needle was removed. The area was cleansed, Band-Aids applied. The patient monitored for an appropriate period of time, discharged in good and stable condition. Told to use ice to the area today. Follow up as needed. <ELECTRONICALLY SIGNED> By: Dwight Wharton DO 03/27/17 1253 1207 99 Dwight Wharton, DO /nt
[2017-03-24 08:55] VITALS: BP 138/91
== END | disposition home or self-care (01) ==
LOC: PAIN 06:59
DX: M79.1 Myalgia (principal); M54.16 Radiculopathy, lumbar region; G62.9 Polyneuropathy, unspecified; I63.9 Cerebral infarction, unspecified; Z79.899 Other long term (current) drug therapy

== ENCOUNTER → 2017-04-13 | Outpatient (CLI) | payer OTHER ==
--- NOTE | ~2017-04-13 | 2DMMODE ---
[facility] [place] [address] 2 D/M-MODE ECHOCARDIOGRAM Name: MASTERJACOBO DILLAN Room #: REG CL [facility]#: [id number] Admission: 04/13/17 Attend Phys: Jd Dyson Discharge: Date of : 42 Date of Service: 04/13/17 1501 Report #: [id number] THIS REPORT FOR: //name// APPROVED REPORT Study performed: 04/13/2017 14:11:37 EXAM: Comprehensive 2D, Doppler, and color-flow Echocardiogram Patient Location: Out-Patient Status: routine BSA: 1.41 HR: 82 bpm BP: 128/88 mmHg Other Information Study Quality: Adequate Indications Cardiomyopathy. Hx: Pacemaker, Afib, TIA, HTN 2D Dimensions RVDd: 28.80 mm LVEF(%): 54.13 (>50%) IVSd: 10.54 (7-11mm) LVOT Diam: 20.30 (18-24mm) LVDd: 44.45 mm PWd: 10.70 (7-11mm) Ascending Ao: 30.95 (22-36mm) LVDs: 32.08 (25-40mm) Aortic Root: 28.55 mm Dougherty's LVEF: 54.13 % Volumes Left Atrial Volume (Systole) Single Plane 4CH: 38.33 mL Single Plane 2CH: 55.90 mL LA ESV Index: 36.00 mL/m2 Aortic Valve AoV Peak Andrea.: 1.00 m/s AO Peak Gr.: 3.99 mmHg LVOT Max P.96 mmHg LVOT Max V: 0.70 m/s LLOYD Vmax: 2.27 cm2 Mitral Valve E/A Ratio: 1.3 MV Decel. Time: 186.92 ms MV E Max Andrea.: 0.82 m/s [facility] [place] [address] 2 D/M-MODE ECHOCARDIOGRAM Name: JACOBO THAO Room #: [facility] Pablo#: [id number] Admission: 04/13/17 Attend Phys: Jd Dyson Discharge: Date of : 42 Date of Service: 04/13/17 1501 Report #: [id number] MV A Andrea.: 0.64 m/s MV PHT: 54.21 ms IVRT: 73.82 ms Pulmonary Valve PV Peak Andrea.: 0.49 m/s PV Peak Gr.: 0.97 mmHg Pulmonary Vein P Vein S: 0.68 m/s P Vein D: 0.55 m/s P Vein S/D Ratio: 1.24 Tricuspid Valve TR Peak Andrea.: 2.83 m/s RAP Estimate: 5.00 mmHg TR Peak Gr.: 32.08 mmHg PA Pressure: 37.00 mmHg Left Ventricle The left ventricle is normal size. There is normal left ventricular wall thickness. Left ventricular systolic function is mild to moderately decreased. LVEF is 40%. Right Ventricle The right ventricle is normal size. The right ventricular systolic function is normal. Pacemaker lead is present in the right ventricle. Atria Left atrium is mildly dilated. Right atrium is mildly dilated. Aortic Valve Aortic valve is mildly calcified. Trace aortic regurgitation. There is no aortic valvular stenosis. Mitral Valve The mitral valve is normal in structure. Moderate to severe mitral regurgitation with an eccentric jet. Tricuspid Valve The tricuspid valve is normal in structure. Moderate tricuspid regurgitation. Estimated PAP is 37mmHg Pulmonic Valve The pulmonary valve is normal in structure. Trace pulmonic regurgitation. [facility] [address] [place] [address] 2 D/M-MODE ECHOCARDIOGRAM Name: JACOBO THAO Room #: REG Pablo#: [id number] Admission: 04/13/17 Attend Phys: Jd Dyson Discharge: Date of : 42 Date of Service: 04/13/17 1501 Report #: [id number] Great Vessels The aortic root is normal in size. The ascending aorta is normal in size. IVC is normal in size and collapses >50% with inspiration. Pericardium There is no pericardial effusion. <Conclusion> The left ventricle is normal size. LVEF is 40%. Pacemaker lead is present in the right ventricle. Left atrium is mildly dilated. Right atrium is mildly dilated. Aortic valve is mildly calcified. Trace aortic regurgitation. The mitral valve is normal in structure. Moderate to severe mitral regurgitation with an eccentric jet. The tricuspid valve is normal in structure. Moderate tricuspid regurgitation. Estimated PAP is 37mmHg The pulmonary valve is normal in structure. Trace pulmonic regurgitation. <ELECTRONICALLY SIGNED> By: Esteban Gaona MD 04/13/17 1501 1501 1501 Esteban Gaona MD /INF
== END ==
LOC: CV 07:56
DX: I08.1 Rheumatic disorders of both mitral and tricuspid valves (principal); I42.9 Cardiomyopathy, unspecified; I10 Essential (primary) hypertension; I48.91 Unspecified atrial fibrillation

== ENCOUNTER 2017-05-05 06:36 | Observation (INO) | payer OTHER ==
[~2017-05-05] VITALS: Ht 152.4 cm; Wt 51.4 kg
--- NOTE | ~2017-05-05 | D ---
[facility] [address] [address] DISCHARGE SUMMARY Name: JACOBO THAO Room #: 216-P [facility] M..#: [id number] Admission: 05/05/17 Attend Phys: Jd Dyson MD Discharge: Date of : 41 Report #: [id number] THIS REPORT FOR: //name// CC: Solomon Mixon [facility] DISCHARGE DIAGNOSES: 1. Nonischemic cardiomyopathy. 2. 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 3. Skin tear. 4. Atrial fibrillation. 5. Prior stroke. 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 HISTORY: The patient is a 76-year-old status post pacemaker implantation in the past, who developed a nonischemic cardiomyopathy and chronic RV pacing. Attempts at device reprogramming failed to improve this and she was here for upgrade to a Bi-V pacemaker. She previously had a pacemaker placed years ago on the right side and had a submuscular implant. I was able to obtain access to the right subclavian vein, but my wire would not enter the heart. I then performed a venogram, which shows that there was a stenotic lesion at the SVC-RA junction. 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 As such an upgrade could not be performed. The original pacemaker was reconnected to the device and the was closed. While removing the adhesive on her chest, she developed a skin tear. She is on chronic high dose prednisone and has very fragile skin in the past. Apparently after surgery at when they removed adhesive from her eyelids, they tore the skin of her eyelids. The patient was placed in the hospital for monitoring. She was having significant pain from the skin tear. A wound care consult was obtained who placed a special dressing over the skin tear which was large and over the left pectoralis region. She received IV antibiotics while in the hospital. Her right-sided incision looks to be healing nicely with no signs of hematoma, but she did have significant ecchymosis. Her pain medications were increased to control this pain and on the day of discharge, she was feeling better. Based on telemetry, her device is functioning normally. Her vitals were stable. Her physical exam was within normal limits. As such, she was deemed stable for discharge home. She has an appointment to see the wound care clinic tomorrow. She will see me in 7-10 days for a site check. I empirically placed her on some p.o. doxycycline given the [address] [address] DISCHARGE SUMMARY Name: JACOBO THAO Room #: 216-P [facility] M.R.#: [id number] Admission: 05/05/17 Attend Phys: Jd Dyson MD Discharge: Date of : 42 Report #: [id number] skin tear. She will continue on her same home medications at discharge, but we will hold aspirin and warfarin given her high risk for bleeding. By: [id number] 1135 Jd Dyson MD /nt
--- NOTE | ~2017-05-05 | HC ---
[facility] [place] [address] CONSULTATION Name: JACOBO THAO Room #: 216-P [facility] MBillie#: [id number] Admission: 05/05/17 Attend Phys: Jd Dyson MD Discharge: 05/07/17 Date of : 42 Report #: [id number] THIS REPORT FOR: //name// CC: [facility] DATE OF SERVICE: 05/05/2017 CHIEF COMPLAINT: Chest wall skin tear. HISTORY OF PRESENT ILLNESS: This is a 76-year-old female patient who was seen by Dr. Jd Dyson for pacemaker replacement, there was a failed attempt at IV lead placement. She sustained; however, a skin tear to her left anterior chest wall when the drapes from the procedure were removed and I have been asked to see her with regard to wound care. The patient notes that she has very fragile skin and that it fortunately will tear very easily. 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 She has had previous cardiac ablation times 2, cardiac pacemaker, gastroparesis with gastric stimulator. FAMILY HISTORY: Positive for COPD and dementia. SOCIAL HISTORY: Negative for alcohol or tobacco use. ALLERGIES: To REGLAN, SPIRONOLACTONE, CLARITHROMYCIN, ERYTHROMYCIN, CEFOXITIN and CEFAZOLIN. CURRENT MEDICATIONS: Include prednisone, febuxostat, metoprolol, hydrocodone, ondansetron, and vancomycin. REVIEW OF SYSTEMS: CONSTITUTIONAL: The patient denies fever, chills, or weight loss. NEUROLOGIC: The patient has right-sided hemiparesis. ENT: The patient denies earache, nasal drainage, or sore throat. CARDIOVASCULAR: The patient denies chest pain, palpitations, or diaphoresis. PULMONARY: The patient denies cough or shortness of breath. GASTROINTESTINAL: The patient denies nausea, vomiting, diarrhea, or abdominal pain. ORTHOPEDIC: The patient denies pain or swelling of the extremities. SKIN: The patient does note the skin tear over the left anterior chest. Other systems are negative. [address] [address] CONSULTATION Name: JACOBO THAO [id number] Admission: 05/05/17 Attend Phys: Jd Dyson MD Discharge: 05/07/17 Date of : 42 Report #: [id number] PHYSICAL EXAMINATION: VITAL SIGNS: At this time include pulse 61, respiratory rate 15, blood pressure 143/64, and temperature 97.6. GENERAL: This is a chronically ill-appearing female patient, appears to be in no distress. HEENT: Head normocephalic. Nose and throat are clear. NECK: Supple. LUNGS: Clear. HEART: Regular rhythm. ABDOMEN: Soft. Bowel sounds present. EXTREMITIES: Without clubbing or cyanosis. NEUROLOGIC: The patient complains of right-sided hemiparesis. She is alert and oriented. SKIN: Demonstrates what appears to be a large skin tear across the left anterior chest wall. It is relatively superficial and is not infected at this time, though there is no exposure of any deep structures. CLINICAL IMPRESSION: 1. Skin tear, left anterior chest wall. 2. Recent pacemaker change. 3. History of cerebrovascular accident. RECOMMENDATIONS: At this point in time, she has Tielle dressing in place at this time that is somewhat adherent as well. I think this will need to be soaked off, it could be left in place until tomorrow morning, at which point I think we will put on a Xeroform gauze and an ABD, secured very small piece of Hypafix or paper tape just to hold the top edge on and . She is already scheduled to see either myself or Dr. Washington in the office on Monday and we will come up with additional dressing regimen at that time. All questions have been answered with her family at the bedside. I appreciate having been asked to see her in consultation. <ELECTRONICALLY SIGNED> By: Tucker Lerma MD 05/08/17 1443 [id number] 2047 Tucker Lerma MD /nt
[~2017-05-05 06:36] MED LIST changes: +FLOVENT 220 MCG INH; -FLOVENT HFA 2220 MC1 IH
[2017-05-05 07:06] VITALS: BP 170/76
[2017-05-05 07:15] LABS: BASOPHILS 1.1 % (0.0-2.0); EOSINOPHILS 1.4 % (0.0-3.0); HEMATOCRIT 42.1 % (37.0-47.0); HEMOGLOBIN 13.6 gm/dL (12.0-15.0); MCH 30.2 pg (26.0-34.0); MCHC 32.2 g/dL (28.0-37.0); MCV 93.9 fL (80.0-100.0); MONOCYTES 5.5 % (1.0-8.0); PLATELET COUNT 269 thou/uL (150-400); RBC 4.49 mil/uL (4.20-5.00); RDW 17.1 % (10.5-14.5); WBC 9.5 thou/uL (4.0-11.0)
[2017-05-05 07:16] LABS: MANUAL DIFF NO
[2017-05-05 07:25] LABS: CALCIUM 9.1 mg/dL (8.5-10.1); CREATININE 2.3 mg/dL (0.6-1.0); POTASSIUM 3.7 mmol/L (3.5-5.1)
[2017-05-05 07:30] LABS: ALBUMIN 3.7 g/dL (3.4-5.0); TOTAL BILIRUBIN 0.6 mg/dL (<0.1-1.0); TOTAL PROTEIN 7.4 g/dL (6.4-8.2)
[2017-05-05 07:35] LABS: APTT 29.6 Seconds (24.5-32.8); INR 1.1; PROTIME 11.2 Seconds (9.3-11.4)
[2017-05-05] MEDS ORDERED: OMEPRAZOLE 20 M20 MG PO (07:58)
[2017-05-05] MEDS ORDERED: PROAIR RESPICL90 MCG INH (08:00)
[2017-05-05] MEDS ORDERED: TIGAN300 MG PO (08:01)
[2017-05-05 12:50] VITALS: BP 170/82
[2017-05-05 15:52] VITALS: BP 143/64
[2017-05-05 19:45] VITALS: BP 115/60
[2017-05-06 00:45] VITALS: BP 115/56
[2017-05-06 04:45] VITALS: BP 141/64
[2017-05-06 08:14] VITALS: BP 133/67
[2017-05-06 12:16] VITALS: BP 149/79
[2017-05-06 16:33] VITALS: BP 129/62
[2017-05-06 20:19] VITALS: BP 127/61
[2017-05-07 03:37] LABS: ABSOLUTE NEUTROPHILS 7.6 thou/uL (1.4-8.2); BASOPHILS 0.5 % (0.0-2.0); EOSINOPHILS 0.3 % (0.0-3.0); HEMATOCRIT 34.4 % (37.0-47.0); LYMPHOCYTES 18.3 % (24.0-44.0); MCH 30.9 pg (26.0-34.0); MCHC 32.8 g/dL (28.0-37.0); MCV 94.3 fL (80.0-100.0); MONOCYTES 8.5 % (1.0-8.0); PLATELET COUNT 235 thou/uL (150-400); POLYS 72.4 % (36.0-66.0); RBC 3.65 mil/uL (4.20-5.00); RDW 17.1 % (10.5-14.5); WBC 10.5 thou/uL (4.0-11.0)
[2017-05-07 03:40] LABS: HEMOGLOBIN 11.3 gm/dL (12.0-15.0); MANUAL DIFF NO
[2017-05-07 03:46] LABS: CALCIUM 8.9 mg/dL (8.5-10.1); CREATININE 1.6 mg/dL (0.6-1.0)
[2017-05-07 04:14] VITALS: BP 162/74
[2017-05-07 08:30] VITALS: BP 151/69
[2017-05-07 11:34] VITALS: BP 151/69
[2017-05-07 11:55] VITALS: BP 141/76
== END 2017-05-07 13:00 | disposition home or self-care (01) ==
LOC: CATH 06:36 → 2N 13:05 → CATH 15:44 → 2N 05-07 13:00
PROVIDERS: Internal Medicine Cardiovascular Disease
DX: I42.9 Cardiomyopathy, unspecified (principal); I48.91 Unspecified atrial fibrillation; Z86.73 Personal history of transient ischemic attack (TIA), and cerebral infarction without residual deficits
CPT/HCPCS: 62110; 62900; 70005

== ENCOUNTER → 2017-05-08 | Outpatient (CLI) | payer OTHER ==
[~2017-05-08] MED LIST changes: +OMEPRAZOLE 20 M20 MG PO; +PROAIR RESPICL90 MCG INH
== END ==
LOC: HYPER 06:58
DX: T81.89XD Other complications of procedures, not elsewhere classified, subsequent encounter (principal); I48.91 Unspecified atrial fibrillation; J45.20 Mild intermittent asthma, uncomplicated; I10 Essential (primary) hypertension; Z86.73 Personal history of transient ischemic attack (TIA), and cerebral infarction without residual deficits; Y83.8 Other surgical procedures as the cause of abnormal reaction of the patient, or of later complication, without mention of misadventure at the time of the procedure

== ENCOUNTER → 2017-05-16 | Outpatient (CLI) | payer OTHER | LOC: HYPER 07:14 | DX: T81.31XD Disruption of external operation (surgical) wound, not elsewhere classified, subsequent encounter (principal); I48.91 Unspecified atrial fibrillation; I51.7 Cardiomegaly; J45.20 Mild intermittent asthma, uncomplicated; I10 Essential (primary) hypertension; Z86.73 Personal history of transient ischemic attack (TIA), and cerebral infarction without residual deficits; Z90.710 Acquired absence of both cervix and uterus; Z95.0 Presence of cardiac pacemaker; Y83.8 Other surgical procedures as the cause of abnormal reaction of the patient, or of later complication, without mention of misadventure at the time of the procedure ==

== ENCOUNTER → 2017-05-22 | Outpatient (CLI) | payer OTHER ==
[~2017-05-22] VITALS: Ht 152.4 cm; Wt 48.2 kg
--- NOTE | ~2017-05-22 | HPC ---
[facility] [place] [address] PAIN MANAGEMENT CONSULTATION Name: MASTERJACOBO DILLAN Room #: REG ASIA Shah#: [id number] Admission: 05/22/17 Attend Phys: Dwight Wharton, DO Discharge: Date of : 41 Report #: [id number] THIS REPORT FOR: //name// CC: Oral Wharton The patient is a 76-year-old female, last seen in pain clinic 03/24/2017, given trigger point injections for myofascial pain, continued on MS Contin 15 mg at bedtime and hydrocodone 5/325 three a day. In the interval since we last saw her, she was admitted 05/05 through the 05/07 for replacement of sequential pacemaker. She has history of atrial fibrillation and cardiomyopathy. She has prior had a CVA with some right-sided weakness. Unfortunately, during the procedure, they were unable to get a second lead advanced, she still has a ventricular pacemaker. They also did traumatize her left chest wall skin with a fairly large abrasion here. She is now seeing the wound clinic. She returns to the pain clinic today with ongoing pain, left hip and groin, radiating somewhat of an L3 pattern. She rates the pain an 8-9 on VAS, burning, stabbing sensation, exacerbated with standing and walking, she feels like she is getting weaker give out. PHYSICAL EXAMINATION: Shows a 76-year-old female, BMI is 20.7 kg/m2. A dressing across the left chest wall. There is also incision on the right side where the pacemaker had been revised. Rises from chair with assistance. Markedly antalgic gait. Left hip flexion strength is diminished. Positive straight leg raise on the left. Patellar and Achilles reflexes are diminished on the left side compared to the right. DIAGNOSTIC STUDIES: Include an MRI of the lumbar spine from 2016, noting L3-L4 to have a mild facet arthrosis with left neural foraminal stenosis, L4-L5 has persistent circumferential disk bulging. ASSESSMENT: Symptomatic lumbar radiculopathy status post decompressive laminectomy, neuropathic pain, requiring high complex medication management, history of cerebrovascular accident and atrial fibrillation, on Coumadin. She has been off Coumadin actually for greater than 5 days now while they are trying to get the skin wound on the left chest wall to heal. RECOMMENDATION: Epidural injection under fluoroscopy today, renew MS Contin 15 mg at bedtime, hydrocodone 5/325 one tablet up to 4 times a day, I have taken the liberty of writing for 2 months of current medication. PROCEDURE: Lumbar epidural injection under fluoroscopy. PROCEDURE NOTE: After both written and informed consent [place] [address] PAIN MANAGEMENT CONSULTATION Name: JACOBO THAO Room #: REG ASIA Shah#: [id number] Admission: 05/22/17 Attend Phys: Dwight Wharton DO Discharge: Date of : 42 Report #: [id number] spinal cord damage, increased pain, weakness and dural puncture, the patient was taken to the fluoroscopy suite, placed in the prone position. After sterile prep and drape, a skin wheal with lidocaine was raised. A 22-gauge epidural Tuohy needle was inserted in the midline at L3-L4 with good loss to resistance. Negative aspiration for cerebrospinal fluid or blood was noted. Then 1 mL of Omnipaque under biplanar fluoroscopy showed good spread within the epidural space. This was followed with 80 mg of triamcinolone plus 1 mL of 1.5% preservative-free Xylocaine, 0.5 mL Xylocaine was then injected to flush the needle; it was removed. The patient was monitored for an appropriate period of time and discharged in good and stable condition. By: [id number] Dwight Wharton DO /nt
[2017-05-22 09:13] VITALS: BP 142/82
== END | disposition home or self-care (01) ==
LOC: PAIN 06:55
DX: M54.16 Radiculopathy, lumbar region (principal); G89.29 Other chronic pain; I48.91 Unspecified atrial fibrillation; M79.1 Myalgia; I42.9 Cardiomyopathy, unspecified; Z95.0 Presence of cardiac pacemaker; Z79.01 Long term (current) use of anticoagulants; Z86.73 Personal history of transient ischemic attack (TIA), and cerebral infarction without residual deficits; Z79.891 Long term (current) use of opiate analgesic; Z88.0 Allergy status to penicillin; Z88.8 Allergy status to other drugs, medicaments and biological substances; Z88.1 Allergy status to other antibiotic agents; Z91.048 Other nonmedicinal substance allergy status; Z79.82 Long term (current) use of aspirin; Z79.899 Other long term (current) drug therapy

== ENCOUNTER → 2017-08-03 | Outpatient (CLI) | payer OTHER ==
[~2017-08-03] VITALS: Ht 152.4 cm; Wt 47.4 kg
[~2017-08-03] MED LIST changes: +AMOXICILLIN 50500 MG PO; +FLOVENT HFA12 G1 INH; +LIORESAL 10 MG10 MG PO; +NEURONTIN100 MG PO; +PREDNISONE 10 M10 MG PO; +TRAVATAN Z2.5 ML OPHTHALMIC; -TRAVOPROST 0.02.5 ML OPHTHALMIC; +VENTOLIN HFA 1818 GM INH; -VITAMIN B-121000 MC1 IM; +VITAMIN B12 PO
--- NOTE | ~2017-08-03 | HPC ---
[facility] [address] [place] [address] PAIN MANAGEMENT CONSULTATION Name: JACOBO THAO Room #: REG ASIA Shah#: [id number] Admission: 08/03/17 Attend Phys: Dwight Wharton, DO Discharge: Date of : 41 Report #: [id number] THIS REPORT FOR: //name// CC: Oral Wharton The patient is a very pleasant 76-year-old female, well known to pain clinic, being treated for lumbar radiculopathy status post decompressive laminectomy, neuropathic pain requiring high risk complex medication management. The patient was seen for a prolonged visit today in the company of her . She was seen from 10:30-10:55, greater than 50% of this 25-minute visit was spent counseling the patient. The patient notes current medication, which includes MS Contin 15 mg at bedtime and hydrocodone 5/325 t.i.d. has been helpful for ongoing lumbar radicular pain. Epidural injection L3-L4 05/22/2017, had afforded good and ongoing relief. The patient is currently on Coumadin for atrial fibrillation and history of CVA with some right hemiparesis. When I saw her at last visit, she had issue with pacemaker revision. Apparently, they were unable to get a second lead advanced for the pacemaker, they also traumatized her left chest wall, she had a fairly large abrasion at that last visit. She notes today she has ongoing neuropathic pain in the chest wall, still has an erythematous area just left of the sternum, approximately 2-3 inches wide and about 6 inches long. The patient currently is being treated for Gram-negative edouard pulmonary infection, she is on a second course of antibiotics, currently taking prednisone 20 mg a day along with 2 antibiotics. She feels that her cough is getting better, though she does show a little facial swelling compatible with steroid use. She does have a modestly productive cough. She rates the pain, referring to her chronic axial back and left leg pain is a 4 on a VAS, chest wall pain she states is quite problematic. Her pain impact score is about 33/70. PHYSICAL EXAMINATION: Shows a 76-year-old female, BMI is 20.4 kg/m2. Alert and oriented to person, place and time, judged to be a reasonable historian. Vital signs are stable as noted in the EMR. Again, a little facial swelling noted, modest tremor, does have rhonchi throughout all the lung quintanilla. Again, hyperpathic erythematous area left of sternum about 2 inches wide at the base and about 6 inches long. Rises from chair using armrest. Modestly antalgic gait. Diffuse tenderness across the low back. Lumbar flexion is limited. Lower extremity strength is diminished, but symmetric. We reviewed the fact that opiate medications are being used to provide analgesia [address] [address] PAIN MANAGEMENT CONSULTATION Name: JACOBO THAO Room #: REG ASIA Shah#: [id number] Admission: 08/03/17 Attend Phys: Dwight Wharton DO Discharge: Date of : 41 Report #: [id number] adequate to support activities of daily living, not attempting to achieve a specific pain score on the 0-10 Visual Analog Scale. The current opiate medications are providing sufficient analgesia to allow the patient to participate in activities of daily living. The patient is not exhibiting any aberrant behavior suggestive of drug diversion. The patient is not having any adverse reactions to medications. The patient is not suffering from daytime somnolence or mental acuity changes. The patient is managing opiate-induced constipation with appropriate yovs-fze-wfiuxyg agents and dietary considerations. The patient was counseled on concern for caution with operating a motor vehicle while using opiate medications. A physical exam was performed and the patient's functional status was evaluated. All patients with back pain were advised against the bed rest greater than 4 days and were advised to return to normal activities. Pain score assessment was noted and the treatment plan was reviewed with the patient. All current medications, both prescribed and OTC were reviewed and reconciled on the electronic medical record. Tobacco screening was accomplished and smoking cessation was advised when indicated. BMI was noted and diet/exercise modification was recommended for all patients following outside normal parameters. I reviewed with the patient today their responsibilities to safeguard prescription medications, reviewed their responsibility to utilize medications only as prescribed by the physician. They are to seek and receive pain medications only from 1 physician group ( [facility]). They are to use 1 pharmacy and keep the clinic informed if they change pharmacies. Their responsibilities include making followup visits in a timely fashion and to avoid abrupt discontinuation of medication usage. Their responsibilities further include bringing their medications (bottles from the pharmacy with residual pills) to the visit for possible confirmation of pill counts and the patient understands it is their responsibility to submit to random drug screens to ensure both that the medications prescribed are present, and that no other controlled substances are present. All prescriptions provided today were generated electronically. ASSESSMENT: Symptomatic lumbar radiculopathy status post decompressive laminectomy, neuropathic pain, new diagnosis of left chest wall pain, requiring high risk complex medication management. RECOMMENDATIONS: 1. Renew MS Contin 15 mg at bedtime and hydrocodone 5/325 t.i.d. 2. I have discussed with the patient that we would like to start on gabapentin 100 mg at bedtime, gradually titrating to target dose of 1 in the morning and 2 at night (may take three at bedtime if daytime somnolence is an issue) for neuropathic chest wall pain. [facility] [address] [place] [address] PAIN MANAGEMENT CONSULTATION Name: JACOBO THAO Room #: REG [facility]INI[facility]achew Shah#: [id number] Admission: 08/03/17 Attend Phys: Dwight Wharton DO Discharge: Date of : 42 Report #: [id number] 3. Consider epidural injection for radicular pain after the patient has been off of antibiotics for 2 weeks and off of steroids for 2 weeks. Currently, the patient was discharged in good and stable condition after a 25-minute visit was spent counseling the patient, reviewing interval history and initiating new medication (gabapentin). We did review the opiate consent to treat contract today, buccal swab was accomplished, it should be positive for morphine and hydrocodone. <ELECTRONICALLY SIGNED> By: Dwight Wharton DO 08/04/17 0810 1228 1553 Dwight Wharton DO /nt
[2017-08-03 10:17] VITALS: BP 125/64
== END ==
LOC: PAIN 07:08
DX: M54.16 Radiculopathy, lumbar region (principal); I48.91 Unspecified atrial fibrillation; Z86.73 Personal history of transient ischemic attack (TIA), and cerebral infarction without residual deficits; Z98.890 Other specified postprocedural states; Z79.899 Other long term (current) drug therapy; G81.91 Hemiplegia, unspecified affecting right dominant side

== ENCOUNTER → 2017-09-28 | Outpatient (CLI) | payer OTHER ==
[~2017-09-28] VITALS: Ht 154.9 cm; Wt 48.1 kg
--- NOTE | ~2017-09-28 | HPC ---
[facility] [address] [place] [address] PAIN MANAGEMENT CONSULTATION Name: JACOBO THAO Room #: REG ASIA Shah#: [id number] Admission: 09/28/17 Attend Phys: Dwight Wharton DO Discharge: Date of : 42 Report #: [id number] THIS REPORT FOR: //name// CC: Oral Wharton DATE OF SERVICE: 09/28/2017 The patient is a very pleasant 76-year-old female being treated for neuropathic pain, chronic pain syndrome requiring complex medication management. She weaned off of gabapentin, she had had significant skin abrasion on her chest wall with significant neuropathic pain. This has fortunately healed relatively well and the neuropathic pain component has abated somewhat. She has ongoing chronic axial back and lumbar radicular pain, currently taking MS Contin 15 mg at bedtime and hydrocodone 5/325 one tablet 3-4 times a day. She denies any problems daytime somnolence or mental acuity changes or constipation. We reviewed the fact that opiate medications are being used to provide analgesia adequate to support activities of daily living, not attempting to achieve a specific pain score on the 0-10 Visual Analog Scale. The current opiate medications are providing sufficient analgesia to allow the patient to participate in activities of daily living. The patient is not exhibiting any aberrant behavior suggestive of drug diversion. The patient is not having any adverse reactions to medications. The patient is not suffering from daytime somnolence or mental acuity changes. The patient is managing opiate-induced constipation with appropriate plbs-iqr-riowqry agents and dietary considerations. The patient was counseled on concern for caution with operating a motor vehicle while using opiate medications. A physical exam was performed and the patient's functional status was evaluated. All patients with back pain were advised against the bed rest greater than 4 days and were advised to return to normal activities. Pain score assessment was noted and the treatment plan was reviewed with the patient. All current medications, both prescribed and OTC were reviewed and reconciled on the electronic medical record. Tobacco screening was accomplished and smoking cessation was advised when indicated. BMI was noted and diet/exercise modification was recommended for all patients following outside normal parameters. I reviewed with the patient today their responsibilities to safeguard prescription medications, reviewed their responsibility to utilize medications only as prescribed by the physician. They are to seek and receive pain medications only from 1 physician group ( [facility]). They are to use 1 pharmacy and keep the clinic informed if they change pharmacies. Their responsibilities include making followup visits in a timely fashion and to avoid abrupt discontinuation of medication usage. Their responsibilities further include bringing their medications (bottles from the pharmacy with residual pills) to the visit for possible confirmation of pill counts and the patient [address] [address] PAIN MANAGEMENT CONSULTATION Name: JACOBO THAO Room #: REG ASIA Shah#: [id number] Admission: 09/28/17 Attend Phys: Dwight Wharton DO Discharge: Date of : 42 Report #: [id number] understands it is their responsibility to submit to random drug screens to ensure both that the medications prescribed are present, and that no other controlled substances are present. All prescriptions provided today were generated electronically. PHYSICAL EXAMINATION: Shows pleasant 76-year-old female with diffuse axial back pain, lumbar radiculopathy. Slight thoracolumbar scoliosis. She rises from chair using armrest, markedly antalgic gait, pain radiating down the right leg with slight decreased hip flexion, lower extremity extension strength. The patient notes prior epidural injection afforded excellent relief (L3-L4) several months ago. She has been off of her Coumadin for 5 days. INR is 1.1 today. RECOMMENDATIONS: Repeat epidural injection under fluoroscopy today. PROCEDURE: Lumbar epidural steroid injection with fluoroscopy. PROCEDURE NOTE: After both written and informed consent to include risk of spinal cord damage, increased pain, weakness and dural puncture, the patient was taken to the fluoroscopy suite, placed in the prone position. After sterile prep and drape, a skin wheal with lidocaine was raised. A 22-gauge epidural Tuohy needle was inserted in the midline at L3-L4 with good loss to resistance. Negative aspiration for cerebrospinal fluid or blood was noted. Then 1 mL of Omnipaque under biplanar fluoroscopy showed good spread within the epidural space. This was followed with 80 mg of triamcinolone plus 1 mL of 1.5% preservative-free Xylocaine, 0.5 mL Xylocaine was then injected to flush the needle; it was removed. The patient was monitored for an appropriate period of time and discharged in good and stable condition. <ELECTRONICALLY SIGNED> By: Dwight Wharton DO 09/29/17 0727 1228 1838 Dwight Wharton DO /nt
[2017-09-28 10:29] LABS: INR 1.1; PROTIME 10.9 Seconds (9.3-11.4)
[2017-09-28 11:06] VITALS: BP 141/92
== END ==
LOC: PAIN 07:27
PROVIDERS: Anesthesiology Pain Medicine
DX: M54.16 Radiculopathy, lumbar region (principal); M41.85 Other forms of scoliosis, thoracolumbar region; Z79.01 Long term (current) use of anticoagulants

== ENCOUNTER → 2017-10-25 | Outpatient (CLI) | payer OTHER ==
[~2017-10-25] MED LIST changes: -LIORESAL 10 MG10 MG PO; -PREDNISONE 10 M10 MG PO; -VENTOLIN HFA 1818 GM INH; +VITAMIN B-121000 MC1 IM; -VITAMIN B12 PO
--- NOTE | ~2017-10-25 | 2DMMODE ---
[facility] [place] [address] 2 D/M-MODE ECHOCARDIOGRAM Name: JACOBO THAO Room #: REG [facility]#: [id number] Admission: 10/25/17 Attend Phys: Jd Dyson Discharge: Date of : 42 Date of Service: 10/25/17 1425 Report #: [id number] THIS REPORT FOR: //name// APPROVED REPORT Study performed: 10/25/2017 12:45:33 EXAM: Comprehensive 2D, Doppler, and color-flow Echocardiogram Patient Location: Out-Patient Status: routine BSA: 1.43 HR: 70 bpm BP: 147/88 mmHg Rhythm: Pacemaker Other Information Study Quality: Good Indications Cardiomyopathy 2D Dimensions RVDd: 28.66 mm LVEF(%): 55.92 (>50%) IVSd: 9.15 (7-11mm) LVOT Diam: 20.00 (18-24mm) LVDd: 46.13 mm PWd: 9.30 (7-11mm) Ascending Ao: 33.83 (22-36mm) LVDs: 32.71 (25-40mm) Aortic Root: 31.06 mm Dougherty's LVEF: 55.92 % Volumes Left Atrial Volume (Systole) Single Plane 4CH: 28.22 mL Single Plane 2CH: 39.66 mL LA ESV Index: 25.00 mL/m2 Aortic Valve AoV Peak Andrea.: 0.98 m/s AO Peak Gr.: 3.84 mmHg LVOT Max P.87 mmHg LVOT Max V: 0.68 m/s LLOYD Vmax: 2.19 cm2 Mitral Valve E/A Ratio: 0.8 MV Decel. Time: 201.52 ms [facility] [address] [place] [place] [address] 2 D/M-MODE ECHOCARDIOGRAM Name: JACOBO THAO Room #: [facility]#: [id number] Admission: 10/25/17 Attend Phys: Jd Dyson Discharge: Date of : 42 Date of Service: 10/25/17 1425 Report #: [id number] MV E Max Andrea.: 0.59 m/s MV A Andrea.: 0.74 m/s MV PHT: 58.44 ms IVRT: 124.57 ms Pulmonary Valve PV Peak Andrea.: 0.65 m/s PV Peak Gr.: 1.67 mmHg Pulmonary Vein P Vein S: 0.54 m/s P Vein A: 0.25 m/s P Vein D: 0.42 m/s P Vein A Dur.: 87.7 msec P Vein S/D Ratio: 1.29 Tricuspid Valve TR Peak Andrea.: 2.87 m/s RAP Estimate: 5.00 mmHg TR Peak Gr.: 32.87 mmHg PA Pressure: 38.00 mmHg Left Ventricle The left ventricle is normal size. There is normal left ventricular wall thickness. The left ventricular systolic function is normal. The left ventricular ejection fraction is within the normal range. LVEF is 55-60%. Grade I - abnormal relaxation pattern. Right Ventricle The right ventricle is normal size. Right ventricle is mildly hypokinetic. Pacemaker lead is present in the right ventricle. Atria The left atrium size is normal. The right atrium size is normal. Pacemaker lead is present in the right atrium. Aortic Valve Aortic valve is mildly calcified. Trace aortic regurgitation. There is no aortic valvular stenosis. Mitral Valve Mitral valve leaflets are mildly thickened. Moderate mitral regurgitation. No evidence of mitral valve stenosis. Tricuspid Valve The tricuspid valve is normal in structure. Moderate tricuspid regurgitation. Estimated PAP 38 mmHg. Pulmonic Valve The pulmonary valve is normal in structure. Trace pulmonic [facility] [address] [place] [address] 2 D/M-MODE ECHOCARDIOGRAM Name: MASTERJACOBO M Room #: REG CL [facility]#: [id number] Admission: 10/25/17 Attend Phys: Jd Dyson Discharge: Date of : 42 Date of Service: 10/25/17 1425 Report #: [id number] regurgitation. Great Vessels The aortic root is normal in size. The ascending aorta is normal in size. IVC is normal in size and collapses >50% with inspiration. Pericardium There is no pericardial effusion. <Conclusion> The left ventricle is normal size. LVEF is 55-60%. The right ventricle is normal size. Right ventricle is mildly hypokinetic. Pacemaker lead is present in the right ventricle. The right atrium size is normal. Pacemaker lead is present in the right atrium. Aortic valve is mildly calcified. Trace aortic regurgitation. There is no aortic valvular stenosis. Mitral valve leaflets are mildly thickened. Moderate mitral regurgitation. The tricuspid valve is normal in structure. Moderate tricuspid regurgitation. Estimated PAP 38 mmHg. The pulmonary valve is normal in structure. Trace pulmonic regurgitation. There is no pericardial effusion. <ELECTRONICALLY SIGNED> By: Esteban Gaona MD 10/25/17 1425 1425 1425 Esteban Gaona MD /INF
== END ==
LOC: CV 08-22 07:34
DX: I08.1 Rheumatic disorders of both mitral and tricuspid valves (principal); I70.0 Atherosclerosis of aorta; I42.9 Cardiomyopathy, unspecified; Z95.0 Presence of cardiac pacemaker

== ENCOUNTER → 2018-01-05 | Outpatient (CLI) | payer OTHER ==
[~2018-01-05] VITALS: Ht 152.4 cm; Wt 44.9 kg
[~2018-01-05] MED LIST changes: +VENTOLIN HFA 1818 GM INH
--- NOTE | ~2018-01-05 | HPC ---
[facility] [place] [address] PAIN MANAGEMENT CONSULTATION Name: JACOBO THAO Room #: REG ASIA Shah#: [id number] Admission: 01/05/18 Attend Phys: Dwight Wharton DO Discharge: Date of : 41 Report #: [id number] THIS REPORT FOR: //name// CC: Oral Wharton DATE OF SERVICE: 01/05/2018 HISTORY OF PRESENT ILLNESS: The patient is a very pleasant 77-year-old female, prior seen in the pain clinic on 12/01/2017. The patient is well known to the pain clinic. She has symptomatic lumbar radiculopathy status post decompressive laminectomy, component of lumbar spondylosis. Multiple comorbidities. She has had prior back surgery and has neuropathic pain. 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 History of atrial fibrillation and congestive heart failure. Uses Coumadin for AFib. Does have a pacer implanted. About a year ago, 12/2016, she had a right-sided CVA, treated with TPA with largely resolved symptomatology. We have done occasional epidural injections with dwindling efficacy; in fact in last visit, we did an L5-S1 epidural injection (she had been off Coumadin, INR was 1.1). Returns to pain clinic today noting she had very good relief, but only for about a week. Today, we reviewed the patient's most recent bone density test obtained on 12/21/2017. Reviewed the findings noting that the patient is in the major osteoporotic risk factor group. She does have significant osteoporosis. It has progressed from 1999 to 2018. Her T score starting at negative 0.1, currently at negative 1.4 for the femur and respectively negative 0.6, negative 4.8 for the AP spine. She has been treated by Dr. Rodriguez with Forteo injections several years ago. Again with multiple comorbidities (cardiac and pulmonary) she has pain generators to include: lumbar radicular pain, rheumatoid and osteoarthritis affecting her hands and feet, axial back pain, lumbar radicular pain with right radicular pain component with only transient relief following the prior epidural injection, left somewhat with using simply medication management. Reviewed CT scan of the lumbar spine, most recently from 2015, noting left lateral recess extrusion at L4-L5 causing moderate narrowing of the left lateral recess with expected mass effect on the traversing left L5 nerve root and moderate foraminal narrowing bilaterally at L4-L5, chronic grade [address] [address] PAIN MANAGEMENT CONSULTATION Name: JACOBO THAO Room #: REG [facility] Pablo#: [id number] Admission: 01/05/18 Attend Phys: Dwight Wharton DO Discharge: Date of : 41 Report #: [id number] anterolisthesis at L4-L5 with additional spondylosis. PHYSICAL EXAMINATION: GENERAL: Shows a cachectic 77-year-old female, BMI is 19.3 kilograms per meter squared. VITAL SIGNS: Stable as noted in the EMR. NEUROLOGIC: She is alert and oriented to person, place and time, judged to be a reasonable historian. MUSCULOSKELETAL: Rises from chair using armrest, has a modestly antalgic gait, diffuse tenderness across the low back, osteoarthritic nodules at the proximal metacarpal carpal joint, ulnar drift of the fingers. Modestly antalgic gait. Lumbar flexion is limited. Lower extremity strength is diminished, but symmetric. Modestly positive straight leg raise on the right. Some subjective paresthesia in the right toes. We reviewed the fact that opiate medications are being used to provide analgesia adequate to support activities of daily living, not attempting to achieve a specific pain score on the 0-10 Visual Analog Scale. The current opiate medications are providing sufficient analgesia to allow the patient to participate in activities of daily living. The patient is not exhibiting any aberrant behavior suggestive of drug diversion. The patient is not having any adverse reactions to medications. The patient is not suffering from daytime somnolence or mental acuity changes. The patient is managing opiate-induced constipation with appropriate cskn-ofj-wugeekv agents and dietary considerations. The patient was counseled on concern for caution with operating a motor vehicle while using opiate medications. A physical exam was performed and the patient's functional status was evaluated. All patients with back pain were advised against the bed rest greater than 4 days and were advised to return to normal activities. Pain score assessment was noted and the treatment plan was reviewed with the patient. All current medications, both prescribed and OTC were reviewed and reconciled on the electronic medical record. Tobacco screening was accomplished and smoking cessation was advised when indicated. BMI was noted and diet/exercise modification was recommended for all patients following outside normal parameters. I reviewed with the patient today their responsibilities to safeguard prescription medications, reviewed their responsibility to utilize medications only as prescribed by the physician. They are to seek and receive pain medications only from 1 physician group ( [facility]). They are to use 1 pharmacy and keep the clinic informed if they change pharmacies. Their responsibilities include making followup visits in a timely fashion and to avoid abrupt discontinuation of medication usage. Their responsibilities further include bringing their medications (bottles from the pharmacy with residual pills) to the visit for possible confirmation of pill counts and the patient [address] [place] [address] PAIN MANAGEMENT CONSULTATION Name: JACOBO THAO [id number] Admission: 01/05/18 Attend Phys: Dwight Wharton DO Discharge: Date of : 41 Report #: [id number] understands it is their responsibility to submit to random drug screens to ensure both that the medications prescribed are present, and that no other controlled substances are present. All prescriptions provided today were generated electronically. ASSESSMENT: 1. Symptomatic lumbar radiculopathy status post decompressive laminectomy, 2. Neuropathic pain requiring complex medication management, 3. Multiple comorbidities including history of congestive heart failure, atrial fibrillation, significant pulmonary disease requiring chronic steroid use, history of aspergillosis and Mycobacterium avium pulmonary infections, 4. Significant osteoporosis. 5. Ongoing lumbar radicular pain, also requiring complex medicaition management. RECOMMENDATIONS: After a long discussion with the patient, it was elected to continue MS Contin 15 mg at bedtime, hydrocodone 5/325 first thing in the morning around 6:00-8:00 a.m., again 4 hours later at around noon, 4 hours later around 4:00 p.m. plus/minus fourth tablet at 8:00 p.m. She typically takes MS Contin around 9:00 p.m. and goes to bed around 10:00. She has current medication prescriptions through April. We will have her follow up with Dr. Mello Otoole, she has seen him in the past for ongoing medication management. The patient was seen for prolonged visit today from 10:10 to 10:40. Greater than 50% of the 25 plus minute visit was spent counseling the patient. <ELECTRONICALLY SIGNED> By: Dwight Wharton DO 01/08/18 0709 [id number] Dwight Wharton DO /nt
[2018-01-05 10:00] VITALS: BP 138/77
== END ==
LOC: PAIN 06:57
DX: M54.16 Radiculopathy, lumbar region (principal); I48.91 Unspecified atrial fibrillation; F11.90 Opioid use, unspecified, uncomplicated; Z79.899 Other long term (current) drug therapy

== ENCOUNTER → 2018-05-30 | Outpatient (CLI) | payer OTHER ==
[~2018-05-30] VITALS: Ht 152.4 cm; Wt 46.8 kg
[~2018-05-30] MED LIST changes: +LIORESAL 10 MG10 MG PO; +PREDNISONE 10 M10 MG PO; -VITAMIN B-121000 MC1 IM; +VITAMIN B12 PO
--- NOTE | ~2018-05-30 | HPC ---
[facility] [address] [place] [address] PAIN MANAGEMENT CONSULTATION Name: JACOBO THAO Room #: REG [facility] Pablo#: [id number] Admission: 05/30/18 Attend Phys: Jossie Redding Discharge: Date of : 41 Report #: [id number] THIS REPORT FOR: //name// CC: Jossie Rodriguez MD DATE OF SERVICE: 05/30/2018 CHIEF COMPLAINT: Followup visit today for chronic intractable pain. HISTORY OF PRESENT ILLNESS: We are seeing the patient today in followup for her medications for her chronic intractable back pain. She has seen Dr. Dwight Wharton in the past as well as Dr. Mello Otoole. The patient tells me that her pain score is 10/10 in her lower back, right hip and also in her right leg. She tells me that she has spasms in her back, also sharp, stabbing, constant pain, worse with her walking and standing. Sitting, lying down, medications and heat do help her pain. The patient tells me that she thought she was taking morphine 15 mg once a day, but tells me that she is out of her medicines at appropriate time. Dr. Dwight Wharton and Dr. Mello Otoole had written her MS Contin b.i.d. I instructed her and her to check and verify that she has been taking twice a day with her pill box at home, if that is not the case, then instructed her to increase her MS Contin to 15 mg twice a day to see if that helps with her back pain. The patient also presents today with a right rader skin tear who has already seen Dr. Oliveira this morning. The patient's accidentally kicked her during the night when she was rolling over in bed, tore her skin, she does have a slight hematoma on her right rader and it is wrapped with Coban. The patient has a prescription for x-ray of her right tibia-fibula to be done after our visit today just to make sure nothing was broken, her bones are quite brittle. She also tells me that her INR was 4.9 yesterday that also aids in her hematoma formation. The patient's Coumadin is currently on hold. 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 The patient and family informed me of that. ALLERGIES: SPIRONOLACTONE, ADHESIVE TAPE, REGLAN, ERYTHROMYCIN, CLARITHROMYCIN, CEFZIL. CURRENT MEDICATIONS: Morphine sulfate 15 mg twice a day, hydrocodone 5/325 up to 4 times a day, Coumadin 2.5 on hold, vitamin D3, Ventolin, prednisone, Tigan, omeprazole, Lopressor, aspirin, Movantik, Demadex, Uloric, Flovent, MiraLax, colchicine, Travatan, nitro as needed, potassium, vitamin B12, thyroid medicine and amiodarone. [address] [address] PAIN MANAGEMENT CONSULTATION Name: JACOBO THAO Room #: REG ASIA Shah#: [id number] Admission: 05/30/18 Attend Phys: Jossie Redding Discharge: Date of : 41 Report #: [id number] The patient's PQRS today, 1. History of osteoarthritis in her hands, back, feet, wrist. Denies rheumatoid arthritis. 2. Height 5 feet, weight 103 pounds, BMI is 20.2. 3. Vital signs: Blood pressure 152/80, pulse is 67, oxygen sat is 97%. 4. Pain intensity is 10. 5. Fall risk. Denies dizziness, does not need help walking or standing and has not fallen in the last 3 months. 6. Blood thinner is Coumadin. 7. History of hypertension is positive. The patient does have opioid signed contract on the chart because she takes opioid therapy greater than 6 weeks. 8. Her risk assessment tool is low. 9. Her functional assessment is 28/70. 10. Recreational drug use, denies; does not smoke and does not drink alcohol. The patient's [place] and [place] PDMP were checked. The patient has appropriate fills only from Dr. Mello Otoole lately. Prior to that was Dr. Dwight Wharton for her opioid use, is on time with her medication refills. Today no aberrant behaviors noted and the patient tells me that she safeguards her medications. 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 Occasionally is forgetful due to past CVA. MUSCULOSKELETAL: Rises from chair using armrest, has modest antalgic gait, tenderness over her low back, osteoarthritic nodules in her fingers. Lower flexion is limited. Lower extremity strength is diminished, but symmetrical. The patient has multiple bruises throughout. New skin tear on the right rader wrapped presently with Coban, obvious contusion at that site. DIAGNOSTIC IMPRESSION: 1. Chronic intractable pain with multiple comorbidities. 2. Lumbar radiculopathy status post laminectomy, post-laminectomy syndrome. 3. Lumbar spondylosis. 4. Complex medical management due to multiple comorbidities, cardiac and pulmonary issues. 5. Osteoarthritis. We reviewed the fact that opiate medications are being used to provide analgesia adequate to support activities of daily living, not attempting to achieve a specific pain score on the 0-10 Visual Analog Scale. The current opiate medications are providing sufficient analgesia to allow the patient to participate in activities of daily living. The patient is not exhibiting any aberrant behavior suggestive of drug diversion. The patient is not having any [facility] [address] [place] [address] PAIN MANAGEMENT CONSULTATION Name: JACOBO THAO Room #: REG [facility].#: [id number] Admission: 05/30/18 Attend Phys: Jossie Redding Discharge: Date of : 41 Report #: [id number] adverse reactions to medications. The patient is not suffering from daytime somnolence or mental acuity changes. The patient is managing opiate-induced constipation with appropriate yuuq-fec-msiuqer agents and dietary considerations. The patient was counseled on concern for caution with operating a motor vehicle while using opiate medications. A physical exam was performed and the patient's functional status was evaluated. All patients with back pain were advised against the bed rest greater than 4 days and were advised to return to normal activities. Pain score assessment was noted and the treatment plan was reviewed with the patient. All current medications, both prescribed and OTC were reviewed and reconciled on the electronic medical record. Tobacco screening was accomplished and smoking cessation was advised when indicated. BMI was noted and diet/exercise modification was recommended for all patients following outside normal parameters. I reviewed with the patient today their responsibilities to safeguard prescription medications, reviewed their responsibility to utilize medications only as prescribed by the physician. They are to seek and receive pain medications only from 1 physician group ([facility]). They are to use 1 pharmacy and keep the clinic informed if they change pharmacies. Their responsibilities include making followup visits in a timely fashion and to avoid abrupt discontinuation of medication usage. Their responsibilities further include bringing their medications (bottles from the pharmacy with residual pills) to the visit for possible confirmation of pill counts and the patient understands it is their responsibility to submit to random drug screens to ensure both that the medications prescribed are present, and that no other controlled substances are present. All prescriptions provided today were generated electronically. PLAN: 1. The patient was here today for refill of her opioid medication, discussed her MS Contin use. The patient has been given a script for 15 mg 1 p.o. b.i.d. #60 for today, 4-week and 8-week. Family and the patient were instructed to take it twice a day if the patient finds out at home that she has been only taking it once a day. Hopefully, this will help decrease her pain score from a 10 to lower than that on average pain score. 2. The patient was given [facility] 5/325 one tablet up to 4 times a day, quantity is 120 for today, 4-week and 8-week. The patient finds this medication very helpful. 3. The patient's total MME is at 50 MMEs per day, therefore we are able to give her 3 months of medication. 4. The patient does complain of increasing spasms in her lower back. The patient tells me in the past, Dr. Dwight Wharton had given her tizanidine, but the patient was unable to take that due to the side effects causing her to be quite somnolent. The patient is agreeable for a trial of baclofen 10 mg once a [facility] [address] [place] [address] PAIN MANAGEMENT CONSULTATION Name: JACOBO THAO Room #: REG ASIA Shah#: [id number] Admission: 05/30/18 Attend Phys: Jossie Redding Discharge: Date of : 42 Report #: [id number] day, to see if that is helpful in her reduction of spasms in her back. The patient was given a script for this today as a trial. 5. The patient's constipation issues were discussed and she does take Movantik on a daily basis and MiraLax and feels that it is under control. 6. There is a slight concern about Toxic metabolites of morphone for this lady with her compromised state so her BUN/creatinine should be checked regularly. Her last results that I am able to find are from Apr 2017/ They were slightly elevated. The pt tells me that she is to have all her lab work checked soon by her primary care dr. 7. The patient will follow up with myself in 3 months' time. At that time, we will conduct a urine drug screen since there is not one currently on the chart within this past year. 8. The patient is seen in collaboration with Dr. Solomon Wharton. <ELECTRONICALLY SIGNED> By: Jossie Redding 06/01/18 0722 [id number] Jossie Redding /ayden
[2018-05-30 09:07] VITALS: BP 152/80
== END | disposition home or self-care (01) ==
LOC: PAIN 06:43 → RAD 06:43 → PAIN 08:56
DX: M47.26 Other spondylosis with radiculopathy, lumbar region (principal); G89.29 Other chronic pain; M19.90 Unspecified osteoarthritis, unspecified site; Z79.891 Long term (current) use of opiate analgesic; Z88.8 Allergy status to other drugs, medicaments and biological substances; Z79.82 Long term (current) use of aspirin; Z79.899 Other long term (current) drug therapy

== ENCOUNTER → 2018-09-03 | Outpatient (CLI) | payer OTHER ==
[~2018-09-03] VITALS: Ht 152.4 cm; Wt 44.7 kg
[~2018-09-03] MED LIST changes: +PROLIA60 MG/1 ML SUBQ
--- NOTE | 2018-09-03 10:25 | NUR ---
Pain Clinic Assessment: 1. History of Osteoarthritis: HANDS FEET BACK WRISTS History of Rheumatoid Arthritis: Not Applicable 2. Height: 5 ft. 0 in. 152.4 cm. Weight: 98.6 lb. oz. 44.724 kg. Patient's BMI: 19.3 3. Vital Signs: BP: Pulse: 71 Resp: 14 Temp: 02 Sat: 98 ECG Mon: 4. Pain Intensity: 6-7 5. Fall Risk: Dizziness: N Needs help standing or walking: N Fallen in the last 3 months: N Fall risk comments: 6. Patient on Blood Thinner: Warfarin (Coumadin) 7. History of Hypertension: Y 8. Opioid Therapy greater than 6 weeks: Y Opiate Contract Signed: 08/03/17 9. Risk Assessment Tool Provided: LOW RISK 08/02 10. Functional Assessment Tool: 11. Recreational Drug Use: Never Drug Type: Tobacco Use: Never Smoker Tobacco Type: Amount or Packs/day: How Many Years: Alcohol Use: No Frequency: Quant:
--- NOTE | 2018-09-04 09:00 | HPC ---
[facility] [address] [place] [address] PAIN MANAGEMENT CONSULTATION Name: MASTERJACOBO Rand Room #: REG ASIA Rider.#: [id number] Admission: 09/03/18 Attend Phys: Mello Otoole MD Discharge: Date of : 41 Report #: [id number] THIS REPORT FOR: //name// CC: Oral Otoole DATE OF SERVICE: 09/03/2018 CHIEF COMPLAINT: Chronic intractable pain. HISTORY OF PRESENT ILLNESS: This is a very pleasant 77-year-old female, who we have been following for her chronic intractable back pain. She is here today for refill of her medication management. She tells me that her pain score today is 6/7, mostly in her lower back and her right leg, the lateral aspect of the right leg as well as her right foot have some numbness in them. She tells us that she did have her gastric stimulator replaced in early June and has been doing quite well with that. She tells me she mostly has pain with sitting, walking, standing and lying down, but her medications and heat are very helpful. She tells me that the baclofen trial that we gave her in April for her spasms in her lower back, she did not tolerate very well. She has not tolerated other medicines like tizanidine for her muscle spasms in the back prior to that. She tells me that she uses heat and they slowly get better with using her medications and heat. ALLERGIES: SPIRONOLACTONE, ADHESIVE TAPE, REGLAN, CEFOXITIN SODIUM, ERYTHROMYCIN, CEFZIL, CLARITHROMYCIN. CURRENT LIST OF MEDICATIONS: Prolia, morphine sulfate 15 mg b.i.d., hydrocodone 5/325 up to 4 times a day, Coumadin 2.5 mg daily, vitamin D daily, albuterol inhaler as needed, prednisone 50 mg daily, Tigan as needed for nausea, omeprazole 20 mg b.i.d., Lopressor 25 mg b.i.d., aspirin 81 mg daily, Movantik 12.5 mg at bedtime, Demadex 10 mg as needed, Uloric 40 mg daily, MiraLax daily, colchicine 0.6 mg as needed, pravastatin drops daily, potassium 20 mEq daily, vitamin B12 daily, levothyroxine 50 mcg daily, amiodarone 200 mg daily. PQRS: 1. The patient has a history of osteoarthritis in her hands, back, feet, and wrist. Denies rheumatoid arthritis. 2. Height is 5 feet, weight is 98, BMI is 19.3. 3. Vital signs: Pulse is 71, respirations 14, oxygen sat is 98%. 4. Pain score is 6/7. 5. Denies dizziness. Does not need help walking or standing. Has not fallen in the last 3 months. 6. The patient is on Coumadin and does take antihypertensive medicines. 7. Opioid therapy is greater than 6 weeks, therefore, an opioid signed contract is on the chart. [address] [address] PAIN MANAGEMENT CONSULTATION Name: JACOBO THAO Room #: REG ASIA Shah#: [id number] Admission: 09/03/18 Attend Phys: Mello Otoole MD Discharge: Date of : 41 Report #: [id number] 8. Risk assessment tool is low. Her functional assessment is 28/70. 9. Recreational drug use, she denies. She does not smoke and does not drink alcohol. We did check the prescription monitoring system. The patient is filling appropriately her medications using one pharmacy and is safeguarding her medications at all times. PHYSICAL EXAMINATION: GENERAL: This is a very pleasant 77-year-old that is alert and orientated, she is a reasonable historian. HEENT: Normocephalic, atraumatic. Extraocular eye muscles are intact. MUSCULOSKELETAL: Rises from chair using the armrest. She does walk with an antalgic gait. Complains of tenderness in her lower back. Lower extremity strength is diminished, 4/5 symmetrical in lower muscle groups. IMPRESSION: 1. Chronic intractable pain with multiple comorbidities. 2. Lumbar radiculopathy status post laminectomy syndrome. 3. Lumbar spondylosis. 4. Complex medical management due to multiple comorbidities, cardiac and pulmonary. 5. Osteoarthritis. We reviewed the fact that opiate medications are being used to provide analgesia adequate to support activities of daily living, not attempting to achieve a specific pain score on the 0-10 Visual Analog Scale. The current opiate medications are providing sufficient analgesia to allow the patient to participate in activities of daily living. The patient is not exhibiting any aberrant behavior suggestive of drug diversion. The patient is not having any adverse reactions to medications. The patient is not suffering from daytime somnolence or mental acuity changes. The patient is managing opiate-induced constipation with appropriate porf-vvv-vyyfboq agents and dietary considerations. The patient was counseled on concern for caution with operating a motor vehicle while using opiate medications. A physical exam was performed and the patient's functional status was evaluated. All patients with back pain were advised against the bed rest greater than 4 days and were advised to return to normal activities. Pain score assessment was noted and the treatment plan was reviewed with the patient. All current medications, both prescribed and OTC were reviewed and reconciled on the electronic medical record. Tobacco screening was accomplished and smoking cessation was advised when indicated. BMI was noted and diet/exercise modification was recommended for all patients following outside normal parameters. [facility] [id number] [place] [address] PAIN MANAGEMENT CONSULTATION Name: JACOBO THAO Room #: REG ASIA Rider.#: [id number] Admission: 09/03/18 Attend Phys: Mello Otoole MD Discharge: Date of : 41 Report #: [id number] I reviewed with the patient today their responsibilities to safeguard prescription medications, reviewed their responsibility to utilize medications only as prescribed by the physician. They are to seek and receive pain medications only from 1 physician group ( [facility]). They are to use 1 pharmacy and keep the clinic informed if they change pharmacies. Their responsibilities include making followup visits in a timely fashion and to avoid abrupt discontinuation of medication usage. Their responsibilities further include bringing their medications (bottles from the pharmacy with residual pills) to the visit for possible confirmation of pill counts and the patient understands it is their responsibility to submit to random drug screens to ensure both that the medications prescribed are present, and that no other controlled substances are present. All prescriptions provided today were generated electronically. PLAN: 1. We discussed treatment options today with the patient. The patient did not tolerate the baclofen that we had trialled for her lower back muscle spasms. She has failed tizanidine in the past. Currently, she has been using heat to her lower back as well as her regular medications and finds this to be just as helpful. 2. The patient was given a script of hydrocodone 5/325, take one tablet up to 4 times a day, quantity is 120, scripts for today, 4-week and 8-week. Second medication the patient was given is morphine sulfate 15 mg 1 tablet twice a day, #60 to be released today, 4 and 8-week. 3. The patient's total MME is 50 MME per day. Therefore, she is on the low end of the CDC guidelines therefore we have given her these 3 months of medications and she will follow up for refill as needed or earlier if she feels that she needs an injection. The patient seen in collaboration today with Dr. Mello Otoole. <ELECTRONICALLY SIGNED> By: Jossei Redding 09/04/18 0900 [id number] Jossie Redding /nt
== END ==
LOC: PAIN 07:01
DX: M47.26 Other spondylosis with radiculopathy, lumbar region (principal); G89.4 Chronic pain syndrome; M96.1 Postlaminectomy syndrome, not elsewhere classified; M19.90 Unspecified osteoarthritis, unspecified site; Z79.899 Other long term (current) drug therapy

== ENCOUNTER → 2018-11-29 | Outpatient (CLI) | payer OTHER ==
[~2018-11-29] VITALS: Ht 152.4 cm; Wt 44.5 kg
[2018-11-29 09:28] VITALS: BP 182/75
--- NOTE | 2018-11-29 09:53 | NUR ---
Pain Clinic Assessment: 1. History of Osteoarthritis: HANDS FEET BACK WRISTS History of Rheumatoid Arthritis: Not Applicable 2. Height: 5 ft. 0 in. 152.4 cm. Weight: 98.2 lb. oz. 44.543 kg. Patient's BMI: 19.2 3. Vital Signs: BP: 182/75 Pulse: 71 Resp: 14 Temp: 02 Sat: 100 ECG Mon: 4. Pain Intensity: 10 5. Fall Risk: Dizziness: N Needs help standing or walking: N Fallen in the last 3 months: N Fall risk comments: 6. Patient on Blood Thinner: Warfarin (Coumadin) 7. History of Hypertension: Y 8. Opioid Therapy greater than 6 weeks: Y Opiate Contract Signed: 08/03/17 9. Risk Assessment Tool Provided: LOW RISK 08/02 10. Functional Assessment Tool: 11. Recreational Drug Use: Never Drug Type: Tobacco Use: Never Smoker Tobacco Type: Amount or Packs/day: How Many Years: Alcohol Use: No Frequency: Quant:
--- NOTE | 2018-12-03 07:10 | HPC ---
[facility] [address] [place] [address] PAIN MANAGEMENT CONSULTATION Name: AMY THAOPORSHA Rand Room #: REG ASIA Shah#: [id number] Admission: 11/29/18 ������������������ Attend Phys: Jossie Redding Discharge: ������������������ Date of : 41 Report #: [id number] THIS REPORT FOR: //name// CC: Jossie Jasone [facility] DATE OF SERVICE: 11/29/2018 CHIEF COMPLAINT: Chronic intractable pain. HISTORY OF PRESENT ILLNESS: This is a very pleasant 78-year-old female who returns to the pain clinic today for her ongoing chronic intractable back pain. She is here for her medication refill today. She has brought with her a recent MRI that she had performed at [facility] telling me that she is going to see Dr. Almanza later this month. She has been having increasing pain in her right leg that radiates down into the top of her foot. She also has ongoing right hip pain. She tells me that she has a crampy, sharp, stabbing, feeling occasional weakness in her leg radiating at 10/10 today, worse with sitting and walking, standing, better with heat or her medication does help some which she takes it on schedule. ALLERGIES: SPIRONOLACTONE, ADHESIVE TAPE, REGLAN, CEFOXITIN, ERYTHROMYCIN, CLARITHROMYCIN AND CEFAZOLIN. CURRENT MEDICATIONS: Prolia, morphine sulfate ER 15 mg b.i.d., hydrocodone 5/325 up to 4 times a day, Coumadin 2.5 mg daily, vitamin D3 daily, prednisone, Tigan, omeprazole, Lopressor, Movantik, Demadex, Uloric, Flovent, MiraLax, colchicine, potassium, vitamin B12, Synthroid, amiodarone. PQRS: 1. She has a history of osteoarthritis in her hands, feet, back and wrists. Denies any rheumatoid arthritis. 2. Height is 5 feet, weight is 98. BMI is 19. 3. VITAL SIGNS: Blood pressure 182/75, pulse 71, respirations 14, oxygen sat is 100. 4. Pain score is 10/10. 5. Fall risk: Denies dizziness, does not need help walking or standing and has not fallen in the last 3 months. 6. The patient is on Coumadin, does take medicines for hypertension. 7. Opioid therapy is greater than 6 weeks; therefore, an opioid signed contract is on the chart. 8. Risk assessment is low. Functional assessment is 28/70. 9. Recreational drug use: She denies. She is not a smoker and does not drink alcohol. We did check the prescription monitoring system[place] [address] PAIN MANAGEMENT CONSULTATION Name: JACOBO THAO Room #: REG Getachew Shah#: [id number] Admission: 11/29/18 ������������������ Attend Phys: Jossie Redding Discharge: ������������������ Date of : 41 Report #: [id number] appropriately for her medications and safeguards them at all times. PHYSICAL EXAMINATION: GENERAL: This is a very pleasant 78-year-old female who is alert and orientated. She is a reasonable historian. She appears her stated age. HEENT: Normocephalic, atraumatic. Extraocular eye muscles are intact. MUSCULOSKELETAL: The patient rises from sitting to standing using the armrest. She does walk with an antalgic gait, limping, favoring her right leg. She complains of tenderness and pain that radiates from her lower back down the posterior aspect of her right leg into her groin and down the lateral aspect of her calf into her greater big toe following the L4-L5 dermatomal distribution. The patient has significant weakness on the right leg as well. Her lower extremity strength judged to be 5/5 on the left and 4/5 on the right leg. IMPRESSION: 1. Chronic intractable pain with multiple comorbidities. 2. Lumbar radiculopathy, status post lumbar laminectomy syndrome. 3. Lumbar spondylosis. 4. Spondylolisthesis. 5. Osteoarthritis. 6. Complex medical management due to comorbidities, cardiac and pulmonary. MRI IMPRESSION: 1. Recently had an MRI done at [facility] that shows spondylolisthesis at L4-L5. 2. Soft tissue fullness in the foraminal and lateral recesses of the right L4-L5 of recurrent disk protrusion, lateral recess stenosis on the left at L3-L4. We reviewed the fact that opiate medications are being used to provide analgesia adequate to support activities of daily living, not attempting to achieve a specific pain score on the 0-10 Visual Analog Scale. The current opiate medications are providing sufficient analgesia to allow the patient to participate in activities of daily living. The patient is not exhibiting any aberrant behavior suggestive of drug diversion. The patient is not having any adverse reactions to medications. The patient is not suffering from daytime somnolence or mental acuity changes. The patient is managing opiate-induced constipation with appropriate fphj-mco-pbreade agents and dietary considerations. The patient was counseled on concern for caution with operating a motor vehicle while using opiate medications. A physical exam was performed and the patient's functional status was evaluated. All patients with back pain were advised against the bed rest greater than 4 days and were advised to return to normal activities. Pain score assessment was noted and the treatment plan was reviewed with the patient. All current medications, both prescribed and OTC were reviewed and reconciled on the [facility] [address] [place] [address] PAIN MANAGEMENT CONSULTATION Name: JACOBO THAO Room #: REG Getachew Rider.#: [id number] Admission: 11/29/18 ������������������ Attend Phys: Jossie Redding Discharge: ������������������ Date of : 41 Report #: [id number] electronic medical record. Tobacco screening was accomplished and smoking cessation was advised when indicated. BMI was noted and diet/exercise modification was recommended for all patients following outside normal parameters. I reviewed with the patient today their responsibilities to safeguard prescription medications, reviewed their responsibility to utilize medications only as prescribed by the physician. They are to seek and receive pain medications only from 1 physician group ( [facility]). They are to use 1 pharmacy and keep the clinic informed if they change pharmacies. Their responsibilities include making followup visits in a timely fashion and to avoid abrupt discontinuation of medication usage. Their responsibilities further include bringing their medications (bottles from the pharmacy with residual pills) to the visit for possible confirmation of pill counts and the patient understands it is their responsibility to submit to random drug screens to ensure both that the medications prescribed are present, and that no other controlled substances are present. All prescriptions provided today were generated electronically. PLAN: 1. We discussed treatment options with the patient today. The patient tells me that she is seeing Dr. Adrian Almanza, the neurosurgeon on 12/21/2018 for this ongoing and increasing pain in her right leg that radiates into her low back down her right leg into her big toe. She recently had an MRI, which we did review with her today and discussed the findings on that. The patient tells me that she has been having increasing pain needing her pain medicines on schedule more than she used to. 2. We discussed possible injection and described a lumbar epidural steroid injection versus a right transforaminal on a model and discussed the differences. I think that the patient would benefit from a right transforaminal injection at the L4-L5 level to see if that helps with some of her ongoing leg pain. Appointment made for this patient in the near future. She will need to stop her Coumadin for 5 days prior to this injection done by Dr. Mello Otoole. 3. We will refill her medications today of her morphine 15 mg b.i.d., #60 for today, 4 and 8-week release and hydrocodone 5/325, #120 for today, 4 and 8-week release. We did discuss possible increase of hydrocodone to 7.5 mg, but we will await to see if this injection helps and to see what Dr. Almanza does say. 4. Dr. Mello Otoole was present for part of this discussion today and collaborated care and agreed to doing a transforaminal on this patient in the near future. ��������������������������������������������� <ELECTRONICALLY SIGNED> ���������������������������������������� By: Jossie Redding ��������������������������������������������� 12/03/18 0710 1209 Jossie Redding /nt
== END ==
LOC: PAIN 06:54
DX: M47.26 Other spondylosis with radiculopathy, lumbar region (principal); M43.16 Spondylolisthesis, lumbar region; G89.4 Chronic pain syndrome; M19.90 Unspecified osteoarthritis, unspecified site; M96.1 Postlaminectomy syndrome, not elsewhere classified; Z79.899 Other long term (current) drug therapy

== ENCOUNTER → 2018-12-10 | Outpatient (CLI) | payer OTHER ==
[~2018-12-10] VITALS: Ht 152.4 cm; Wt 44.0 kg
--- NOTE | ~2018-12-10 | HPC ---
[facility] [place] [address] PAIN MANAGEMENT CONSULTATION Name: JACOBO THAO Room #: REG [facility] Adry.#: [id number] Admission: 12/10/18 ������������������ Attend Phys: Mello Otoole MD Discharge: ������������������ Date of : 41 Report #: [id number] THIS REPORT FOR: //name// CC: Oral Otoole DATE OF SERVICE: 12/10/2018 Followup visit for epidural steroid injection. The patient returns today for a transforaminal epidural injection. She was seen last week in conjunction with nurse practitioner, Jossie Redding. We discussed the transforaminal epidural injection on that visit. The potential benefits and risks of the injection were reviewed in detail, as she has never had a transforaminal epidural injection. I reviewed the technique and our hopes for good relief using a more direct approach today in the area of previous surgery. I have reviewed her extensive history as well as all medications. She takes Coumadin, which was discontinued for 5 days. She continues on prednisone daily 15 mg. She has severe osteoporosis. PHYSICAL EXAMINATION: VITAL SIGNS: Blood pressure 147/74, heart rate 65 and respirations 15. MUSCULOSKELETAL: She moves from sitting to standing position, ambulates with weakness and antalgic gait. Straight leg raising noted, particularly on the right following an L4-L5 distribution. IMPRESSION: Lumbar radiculopathy and post-laminectomy syndrome. PROCEDURE: Right L4-L5 transforaminal epidural injection under fluoroscopic guidance. DESCRIPTION OF PROCEDURE: She was taken to fluoroscopic suite. She was placed prone. Skin prepped with ChloraPrep. Skin anesthetized over the L4-L5 interspace. Using the triplanar fluoroscopic views, I advanced the needle into the neural foramen. A 1 mL of Omnipaque was injected and good spread of dye observed in the epidural space. This, however, also noted to show some vascular uptake. The needle was then repositioned until I obtained a good epidurogram once again without vascular uptake. This was then followed by 3 mL of 0.5% lidocaine mixed with 40 mg of triamcinolone. A transforaminal approach using lower volume of triamcinolone should be beneficial to her as well if it allows us to use less steroid. She was already significantly cushingoid. She tolerated the procedure well, was taken to recovery room and observed for [address] [address] PAIN MANAGEMENT CONSULTATION Name: JACOBO THAO Room #: REG [facility].#: [id number] Admission: 12/10/18 ������������������ Attend Phys: Mello Otoole MD Discharge: ������������������ Date of : 41 Report #: [id number] minutes and discharged. Follow up as needed. Medications were prescribed for her at separate visit. ��������������������������������������������� ���������������������������������������� By: ��������������������������������������������� 1434 0109 Mello Otoole MD /nt
[2018-12-10 12:37] VITALS: BP 147/74
--- NOTE | 2018-12-10 12:41 | NUR ---
Pain Clinic Assessment: 1. History of Osteoarthritis: HANDS FEET BACK WRISTS History of Rheumatoid Arthritis: Not Applicable 2. Height: 5 ft. 0 in. 152.4 cm. Weight: 97.0 lb. oz. 43.999 kg. Patient's BMI: 18.9 3. Vital Signs: BP: 147/74 Pulse: 65 Resp: 15 Temp: 02 Sat: 97 ECG Mon: 4. Pain Intensity: 9 5. Fall Risk: Dizziness: N Needs help standing or walking: N Fallen in the last 3 months: N Fall risk comments: 6. Patient on Blood Thinner: Warfarin (Coumadin) 7. History of Hypertension: Y 8. Opioid Therapy greater than 6 weeks: Y Opiate Contract Signed: 08/03/17 9. Risk Assessment Tool Provided: LOW RISK 08/02 10. Functional Assessment Tool: 11. Recreational Drug Use: Never Drug Type: Tobacco Use: Never Smoker Tobacco Type: Amount or Packs/day: How Many Years: Alcohol Use: No Frequency: Quant:
== END | disposition home or self-care (01) ==
LOC: PAIN 06:43
DX: M54.16 Radiculopathy, lumbar region (principal); M96.1 Postlaminectomy syndrome, not elsewhere classified; G89.29 Other chronic pain; M81.0 Age-related osteoporosis without current pathological fracture; Z79.01 Long term (current) use of anticoagulants; Z98.890 Other specified postprocedural states; Z88.8 Allergy status to other drugs, medicaments and biological substances; Z79.899 Other long term (current) drug therapy

== ENCOUNTER → 2019-03-04 | Outpatient (CLI) | payer OTHER ==
[~2019-03-04] VITALS: Ht 152.4 cm; Wt 44.8 kg
[~2019-03-04] MED LIST changes: +NORCO 5-325 TA1 EAC1 PO
[2019-03-04 09:02] VITALS: BP 156/89
--- NOTE | 2019-03-04 09:10 | NUR ---
Pain Clinic Assessment: 1. History of Osteoarthritis: HANDS FEET BACK WRISTS History of Rheumatoid Arthritis: Not Applicable 2. Height: 5 ft. 0 in. 152.4 cm. Weight: 98.8 lb. oz. 44.815 kg. Patient's BMI: 19.3 3. Vital Signs: BP: 156/89 Pulse: 88 Resp: 16 Temp: 02 Sat: 97 ECG Mon: 4. Pain Intensity: 8 5. Fall Risk: Dizziness: N Needs help standing or walking: N Fallen in the last 3 months: N Fall risk comments: 6. Patient on Blood Thinner: Warfarin (Coumadin) 7. History of Hypertension: Y 8. Opioid Therapy greater than 6 weeks: Y Opiate Contract Signed: 08/03/17 9. Risk Assessment Tool Provided: LOW RISK 08/02 10. Functional Assessment Tool: 11. Recreational Drug Use: Never Drug Type: Tobacco Use: Never Smoker Tobacco Type: Amount or Packs/day: How Many Years: Alcohol Use: No Frequency: Quant:
--- NOTE | 2019-03-06 13:30 | HPC ---
[facility] [address] [place] [address] PAIN MANAGEMENT CONSULTATION Name: JACOOB THAO Room #: REG [facility] Pablo#: [id number] Admission: 03/04/19 ������������������ Attend Phys: Jossie Redding Discharge: ������������������ Date of : 42 Report #: [id number] THIS REPORT FOR: //name// CC: Jossie Otoole MD CHIEF COMPLAINT: Chronic intractable pain. HISTORY OF PRESENT ILLNESS: This is a very pleasant 78-year-old female who returns to the pain clinic today for refill of her medications that she uses to help treat her ongoing low back pain, right hip and right leg pain. The patient is reporting her pain scored at 8/10 today, worse with standing and walking and lying down. She tells me the pain is fairly constant lately. She was to have surgery with Dr. Almanza on 02/15/2019 for another back surgery, but she decided to cancel that surgery. There were several risks involved and she decided that it was not the time to have that surgery currently. The patient tells me that Dr. tOoole performed a transforaminal epidural steroid injection on her in November that was beneficial for at least 1 month. She tells me that if she is able to have injections periodically, hopefully that will reduce her pain enough so she can tolerate activities along with her medications. She denies any problems with constipation or daytime sleepiness. The patient tells me that she recently had a knee infection that she was on antibiotics for. She has finished those medications and her left knee is feeling quite better. She did see Dr. Angelic Bolanos for that problem. ALLERGIES: SPIRONOLACTONE, ADHESIVE TAPE, REGLAN, ERYTHROMYCIN, CLARITHROMYCIN, CEFAZOLIN. LIST OF MEDICATIONS: MS Contin 15 mg b.i.d., hydrocodone 5/325 four times a day, Prolia, Coumadin 2.5 mg daily, vitamin D, prednisone 50 mg daily, Tigan p.r.n., omeprazole 20 mg, Lopressor 25 mg b.i.d., Movantik 12.5 mg daily, Demadex 10 mg p.r.n., Uloric 40 mg daily, Flovent, MiraLax, colchicine 0.6 mg p.r.n., potassium 20 mEq daily, vitamin B12, Synthroid 50 mcg daily and Pacerone 200 mg daily. PQRS: 1. The patient has a history of osteoarthritis in her hands, feet, back and wrists. Denies any rheumatoid arthritis. 2. The patient is 5 feet, weight is 98, BMI is 19. 3. Vital signs: Blood pressure 156/89, pulse is 88, respirations 16, oxygen sat is 97. 4. Pain score is 8/10. 5. Denies dizziness, does not need help standing or walking, [place] [address] PAIN MANAGEMENT CONSULTATION Name: JACOBO THAO [id number] Admission: 03/04/19 ������������������ Attend Phys: Jossie Redding Discharge: ������������������ Date of : 41 Report #: [id number] the last 3 months. 6. The patient is on Coumadin, does have a history of hypertension. 7. Opiate therapy is greater than 6 weeks; therefore, an opioid signed contract is on the chart. Her risk assessment tool is low. Functional assessment is 28/70. 8. Recreational drug use, she denies. She is not a smoker and does not drink alcohol. According to the prescription monitoring system, the patient is filling appropriately for her medications. She is due to fill those today. She tells me she does safeguard her medications. PHYSICAL EXAMINATION: GENERAL: This is a very pleasant 78-year-old female who is alert and orientated, appears her stated age, placing her current pain score at 8/10. HEENT: Normocephalic, atraumatic. Extraocular eye muscles are intact. Mucous membranes are moist. MUSCULOSKELETAL: She moves from sitting to standing position using the armrest. She ambulates with weakness and antalgic gait. Her straight leg raising is noted particularly on the right following the L4-5 distribution. She does complain of tenderness across her lower back that radiates down the posterior aspect of her right leg into her groin and the lateral aspect of her calf into her foot. IMPRESSION: 1. Chronic intractable pain with multiple comorbidities. 2. Lumbar radiculopathy and post-laminectomy syndrome. 3. Lumbar spondylosis. 4. Spondylolisthesis. 5. Osteoarthritis. 6. Complex medical management due to comorbidities, cardiac and pulmonary. We reviewed the fact that opiate medications are being used to provide analgesia adequate to support activities of daily living, not attempting to achieve a specific pain score on the 0-10 Visual Analog Scale. The current opiate medications are providing sufficient analgesia to allow the patient to participate in activities of daily living. The patient is not exhibiting any aberrant behavior suggestive of drug diversion. The patient is not having any adverse reactions to medications. The patient is not suffering from daytime somnolence or mental acuity changes. The patient is managing opiate-induced constipation with appropriate zkmw-vtk-nogdivx agents and dietary considerations. The patient was counseled on concern for caution with operating a motor vehicle while using opiate medications. A physical exam was performed and the patient's functional status was evaluated. All patients with back pain were advised against the bed rest greater than 4 [facility] [address] [place] [address] PAIN MANAGEMENT CONSULTATION Name: JACOBO THAO Room #: REG [facility] Adry.#: [id number] Admission: 03/04/19 ������������������ Attend Phys: Jossie MIKEY Redding Discharge: ������������������ Date of : 41 Report #: [id number] days and were advised to return to normal activities. Pain score assessment was noted and the treatment plan was reviewed with the patient. All current medications, both prescribed and OTC were reviewed and reconciled on the electronic medical record. Tobacco screening was accomplished and smoking cessation was advised when indicated. BMI was noted and diet/exercise modification was recommended for all patients following outside normal parameters. I reviewed with the patient today their responsibilities to safeguard prescription medications, reviewed their responsibility to utilize medications only as prescribed by the physician. They are to seek and receive pain medications only from 1 physician group ( [facility]). They are to use 1 pharmacy and keep the clinic informed if they change pharmacies. Their responsibilities include making followup visits in a timely fashion and to avoid abrupt discontinuation of medication usage. Their responsibilities further include bringing their medications (bottles from the pharmacy with residual pills) to the visit for possible confirmation of pill counts and the patient understands it is their responsibility to submit to random drug screens to ensure both that the medications prescribed are present, and that no other controlled substances are present. All prescriptions provided today were generated electronically. PLAN: 1. We discussed treatment options with the patient today. The patient opted to not undergo another back surgery with Dr. Almanza in January due to possible complications with her comorbidities that she does have, so we discussed another epidural steroid injection. The patient experienced good relief from her last right transforaminal epidural injection from Dr. Mello Otoole in November and would consider another injection. 2. We discussed that she would need to be off her Coumadin for 5 days. The patient does have a home coagulation kit. She will test her INR prior to leaving for her an appointment. If it is above 1.5, she will call and cancel her appointment. Otherwise, she will come next Monday and Dr. Otoole will provide her with a transforaminal injection to see if that is beneficial again. 3. Scripts given today for MS Contin 15 mg b.i.d. and hydrocodone 5/325, #120. Scripts given for 3-month supply of each of these medications. 4. The patient verbalizes understanding. We will return next Monday when she is off her Coumadin for an epidural. ��������������������������������������������� <ELECTRONICALLY SIGNED> ���������������������������������������� By: Jossie Redding ��������������������������������������������� 03/06/19 1330 [id number] Jossie Redding /ayden
== END ==
LOC: PAIN 06:47
DX: M47.26 Other spondylosis with radiculopathy, lumbar region (principal); M43.16 Spondylolisthesis, lumbar region; M19.90 Unspecified osteoarthritis, unspecified site; M96.1 Postlaminectomy syndrome, not elsewhere classified; G89.4 Chronic pain syndrome; M25.551 Pain in right hip; M79.604 Pain in right leg; Z79.899 Other long term (current) drug therapy; Z88.8 Allergy status to other drugs, medicaments and biological substances; Z91.048 Other nonmedicinal substance allergy status

== ENCOUNTER → 2019-03-11 | Outpatient (CLI) | payer OTHER ==
[~2019-03-11] VITALS: Ht 152.4 cm; Wt 46.4 kg
[~2019-03-11] MED LIST changes: +HYDROCODONE-AP1 EA11 PO
[2019-03-11 10:45] VITALS: BP 149/75
--- NOTE | 2019-03-11 11:00 | NUR ---
Pain Clinic Assessment: 1. History of Osteoarthritis: HANDS FEET BACK WRISTS History of Rheumatoid Arthritis: Not Applicable 2. Height: 5 ft. 0 in. 152.4 cm. Weight: 102.2 lb. oz. 46.357 kg. Patient's BMI: 20.0 3. Vital Signs: BP: 149/75 Pulse: 65 Resp: 14 Temp: 02 Sat: 98 ECG Mon: 4. Pain Intensity: 10 5. Fall Risk: Dizziness: N Needs help standing or walking: N Fallen in the last 3 months: N Fall risk comments: 6. Patient on Blood Thinner: Warfarin (Coumadin) 7. History of Hypertension: Y 8. Opioid Therapy greater than 6 weeks: Y Opiate Contract Signed: 08/03/17 9. Risk Assessment Tool Provided: LOW RISK 08/02 10. Functional Assessment Tool: 11. Recreational Drug Use: Never Drug Type: Tobacco Use: Never Smoker Tobacco Type: Amount or Packs/day: How Many Years: Alcohol Use: No Frequency: Quant:
--- NOTE | 2019-03-14 16:33 | HPC ---
[facility] [place] [address] PAIN MANAGEMENT CONSULTATION Name: JACOBO THAO Room #: REG [facility].#: [id number] Admission: 03/11/19 Attend Phys: Mello Otoole MD Discharge: Date of : 41 Report #: [id number] THIS REPORT FOR: //name// CC: NONA Otoole DATE OF SERVICE: 03/11/2019 Followup visit for lumbar radiculopathy. The patient returns to pain clinic today for repeat of transforaminal epidural injection. This was helpful previously. It took a few days for it to be effective. She scored her pain as a 10/10 both before the procedure and after. She complains of pain radiating into her right hip, right leg all the way down into the foot. The pain is chronic and severe. She has multiple comorbidities as listed on the electronic medical record. They are too numerous to recount here on this report. MEDICATIONS: Reviewed and reconciled. She is under terms of written opioid agreement. We provided with morphine 15 mg b.i.d., hydrocodone 5/325 four times daily. Prescriptions were renewed today under terms of those agreements. She is grateful for the pain relief she gets from her medication. She safeguards her medication. Without it, she does not feel she could function at all. PQRS: 1. Diffuse osteoarthritis. 2. BMI 20. 3. VITAL SIGNS: 149/75, heart rate 65, respirations 14. 4. Pain intensity 10/10. 5. She is a fall risk, but has not fallen in the last 3 months. 6. She is normally on Coumadin, discontinued in anticipation of the injection. Her INR is 1.0. 7. History of hypertension. 8. Opioid agreement signed last in 07/2017. 9. Low risk for addiction 08/09 by the opioid risk tool. 10. Functional assessment score is 28. 11 Denies use of tobacco and alcohol. PHYSICAL EXAMINATION: Vital signs from above. She appears cushingoid. [facility] [address] [place] [address] PAIN MANAGEMENT CONSULTATION Name: JACOBO THAO Room #: [facility].#: [id number] Admission: 03/11/19 Attend Phys: Mello Otoole MD Discharge: Date of : 41 Report #: [id number] skin and some bruising from her 10 mg of prednisone to 15 mg taken daily. She moves from sitting to standing position. Her gait is antalgic. Her chest is clear with distant breath sounds. Cardiac rhythm is regular, without audible murmur. Musculoskeletal reveals tenderness across the lumbosacral segment, pain with forward flexion and extension. Positive straight leg raising on the right consistent with an L4 radiculopathy. Diminished deep tendon reflexes bilaterally. IMPRESSION: Lumbar radiculopathy. PROCEDURE: Right L4-L5 transforaminal epidural injection. PROCEDURE: She was taken to fluoroscopic suite. She was placed prone, skin prepped with ChloraPrep. Skin was anesthetized over the L4-L5 neuroforamen. Using triplanar fluoroscopic views, I advanced the needle in the neuroforamen. A 1 mL of Omnipaque injected to demonstrate spread of dye along the nerve root and into the epidural spaces followed by 3 mL of 0.5% lidocaine mixed with 80 mg of triamcinolone. She tolerated the procedure well and was observed for 45 minutes and discharged. Follow up as needed for medication management and repeat injections. <ELECTRONICALLY SIGNED> By: Mello Otoole MD 03/14/19 1633 [id number] [id number] Mello Otoole MD /nt
== END | disposition home or self-care (01) ==
LOC: PAIN 06:54
DX: M54.16 Radiculopathy, lumbar region (principal); G89.29 Other chronic pain; I10 Essential (primary) hypertension; M19.90 Unspecified osteoarthritis, unspecified site; Z79.891 Long term (current) use of opiate analgesic; Z79.01 Long term (current) use of anticoagulants; Z98.890 Other specified postprocedural states; Z88.8 Allergy status to other drugs, medicaments and biological substances; Z79.899 Other long term (current) drug therapy; Z86.73 Personal history of transient ischemic attack (TIA), and cerebral infarction without residual deficits; Z95.0 Presence of cardiac pacemaker

== ENCOUNTER → 2019-05-02 | Outpatient (CLI) | payer OTHER ==
[~2019-05-02] VITALS: Ht 152.4 cm; Wt 45.1 kg
[~2019-05-02] MED LIST changes: +NORCO 7.5-3251 EACH PO
--- NOTE | ~2019-05-02 | HPC ---
[facility] [address] [place] [address] PAIN MANAGEMENT CONSULTATION Name: JACOBO THAO [facility] [id number] Admission: 05/02/19 Attend Phys: Jossie Redding Discharge: Date of : 41 Report #: [id number] THIS REPORT FOR: //name// CC: Jossie Otoole MD CHIEF COMPLAINT: Lumbar radiculopathy, chronic intractable pain. HISTORY OF PRESENT ILLNESS: This is a very pleasant 78-year-old female who returns to the pain clinic today for refill of her medication management that she uses to help treat her ongoing low back pain and lumbar radiculopathy. Today, she is reporting a pain score of 8/10, which is located in her lower back that radiates down her right leg to her foot. She did have a transforaminal epidural by Dr. Mello Otoole in February. She reports a 20% relief at least for a month and a half. She thought it was very beneficial despite the percentage that she reported. She feels that since she will probably not go through with the back surgery that Dr. Almanza recommended since it is quite extensive if she is able to have periodic epidurals when her pain is increased. She feels like she is able to get by with activity around the house. She complains of pain radiating into her right hip, right leg that is chronic and severe, most severe when she upon rising in the middle of the night and in the morning. She feels that her leg may give out at this time, though she has not fallen. The medications of morphine and a slight increase of hydrocodone in her last visit have found very beneficial. ALLERGIES: SPIRONOLACTONE, ADHESIVE TAPE, REGLAN, CEFOXITIN, ERYTHROMYCIN, CLARITHROMYCIN and CEFAZOLIN. CURRENT MEDICATIONS: Hydrocodone 7.5/325 p.r.n. and MS Contin 15 mg b.i.d. The rest of her list was reconciled. PQRS: 1. She has diffuse osteoarthritis, multiple joints. She denies any rheumatoid arthritis. 2. Height is 5 feet, weight is 99, BMI is 19. 3. Vital signs: 144/90, pulse 86, respirations 14, oxygen level 99. 4. Pain score is 8/10. 5. Denies dizziness. Does need help walking, but has not fallen in the last 3 months. 7. The patient is on Coumadin and also hypertensive medicines. 8. Opioid therapy is greater than 6 weeks; therefore, an opioid signed contract is on the chart. Risk assessment tool is low. Functional assessment is 28/70. 9. Recreational drug use, she denies. She is not a smoker and does not drink alcohol. [address] [address] PAIN MANAGEMENT CONSULTATION Name: JACOBO THAO Room #: REG [facility] Shah#: [id number] Admission: 05/02/19 Attend Phys: Jossie Redding Discharge: Date of : 41 Report #: [id number] According to the prescription monitoring system, the patient is filling appropriately for her medications and is due for those today. PHYSICAL EXAMINATION: GENERAL: This is a very pleasant 78-year-old female who appears her stated age, placing her current pain score at 8/10 today. HEENT: Normocephalic, atraumatic. Extraocular eye muscles are intact. Mucous membranes are moist. She does have a dressing on her right ear today as a result of ear surgery that was performed and covered with a gauze. I did not remove the gauze for visualization. MUSCULOSKELETAL: She moves from sitting to standing very slow. She has an antalgic gait. She has tenderness across the lumbosacral segment that is worse with forward flexion and extension. Positive straight leg raising on the right is consistent with an L4 radiculopathy. She has diminished deep tendon reflex bilaterally. Lower extremity strength judged to be 4/5 with left greater than the right. She walks with an antalgic gait. IMPRESSION: 1. Chronic intractable pain with multiple comorbidities. 2. Lumbar radiculopathy and post-laminectomy syndrome. 3. Lumbar spondylosis. 4. Spondylolisthesis. 5. Osteoarthritis. 6. Complex medical management due to comorbidities of cardiac, pulmonary and pain issues. We reviewed the fact that opiate medications are being used to provide analgesia adequate to support activities of daily living, not attempting to achieve a specific pain score on the 0-10 Visual Analog Scale. The current opiate medications are providing sufficient analgesia to allow the patient to participate in activities of daily living. The patient is not exhibiting any aberrant behavior suggestive of drug diversion. The patient is not having any adverse reactions to medications. The patient is not suffering from daytime somnolence or mental acuity changes. The patient is managing opiate-induced constipation with appropriate riaq-ulg-jmaccdh agents and dietary considerations. The patient was counseled on concern for caution with operating a motor vehicle while using opiate medications. A physical exam was performed and the patient's functional status was evaluated. All patients with back pain were advised against the bed rest greater than 4 days and were advised to return to normal activities. Pain score assessment was noted and the treatment plan was reviewed with the patient. All current medications, both prescribed and OTC were reviewed and reconciled on the electronic medical record. Tobacco screening was accomplished and smoking cessation was advised when indicated. BMI was noted and diet/exercise modification was recommended for all patients following outside normal [facility] [address] [place] [address] PAIN MANAGEMENT CONSULTATION Name: JACOBO THAO [place] Room #: REG [facility] Adry.#: [id number] Admission: 05/02/19 Attend Phys: Jossie Redding Discharge: Date of : 41 Report #: [id number] parameters. I reviewed with the patient today their responsibilities to safeguard prescription medications, reviewed their responsibility to utilize medications only as prescribed by the physician. They are to seek and receive pain medications only from 1 physician group ( [facility]). They are to use 1 pharmacy and keep the clinic informed if they change pharmacies. Their responsibilities include making followup visits in a timely fashion and to avoid abrupt discontinuation of medication usage. Their responsibilities further include bringing their medications (bottles from the pharmacy with residual pills) to the visit for possible confirmation of pill counts and the patient understands it is their responsibility to submit to random drug screens to ensure both that the medications prescribed are present, and that no other controlled substances are present. All prescriptions provided today were generated electronically. PLAN: 1. We discussed treatment options with the patient today. The patient finds the increase in her hydrocodone from 5 to 7.5, very beneficial in helping control some of her pain as well as her epidural that she did have in February. Scripts given today for hydrocodone 7.5/325 #120 and MS Contin 15 mg b.i.d., #60. These will be released today for an 8-week releases. This does place the patient at 60 morphine mEq according to the CDC guidelines. 2. We did talk about the use of a cane or walker to help with some stability. The patient has not fallen, but feels like her right leg is significantly weaker as it relates to pain as well as not fully recovered from her stroke 2 years ago. The patient is reluctant to use a cane, but I encouraged her to think about it as a way to help her gain some independence. 3. Care given under the collaboration of Dr Otoole who did see the patient as well today. By: [id number] Jossie Redding /ayden
[2019-05-02 09:02] VITALS: BP 144/90
--- NOTE | 2019-05-02 09:05 | NUR ---
Pain Clinic Assessment: 1. History of Osteoarthritis: HANDS FEET BACK WRISTS History of Rheumatoid Arthritis: Not Applicable 2. Height: 5 ft. 0 in. 152.4 cm. Weight: 99.4 lb. oz. 45.087 kg. Patient's BMI: 19.4 3. Vital Signs: BP: 144/90 Pulse: 86 Resp: Temp: 02 Sat: 99 ECG Mon: 4. Pain Intensity: 8 5. Fall Risk: Dizziness: N Needs help standing or walking: N Fallen in the last 3 months: N Fall risk comments: 6. Patient on Blood Thinner: Warfarin (Coumadin) 7. History of Hypertension: Y 8. Opioid Therapy greater than 6 weeks: Y Opiate Contract Signed: 08/03/17 9. Risk Assessment Tool Provided: LOW RISK 08/02 10. Functional Assessment Tool: 11. Recreational Drug Use: Never Drug Type: Tobacco Use: Never Smoker Tobacco Type: Amount or Packs/day: How Many Years: Alcohol Use: No Frequency: Quant:
--- NOTE | 2019-05-13 07:48 | HPC ---
[facility] [address] [place] [address] PAIN MANAGEMENT CONSULTATION Name: JACOBO THAO [id number] Admission: 05/02/19 Attend Phys: Jossie Redding Discharge: Date of : 42 Report #: [id number] THIS REPORT FOR: //name// CC: Jossie Otoole MD DATE OF SERVICE: 05/02/2019 CHIEF COMPLAINT: Lumbar radiculopathy and chronic intractable pain. HISTORY OF PRESENT ILLNESS: This is a very pleasant 78-year-old female who returns to the pain clinic today for a refill of her medications that she uses to help treat her ongoing low back pain and right leg pain. The patient is reporting a pain score of 8/10 today. She feels that her pain was slightly decreased after her right transforaminal epidural steroid injection by Dr. Mello Otoole in February, at least 20% for greater than a month and a half. She feels that she had significant relief. Despite this low percentage that she did rate of improvement, she was able to be more active during that time. She also finds that the increase in hydrocodone to 7.5/325 was beneficial in helping her deal with some of her ongoing chronic pain. She does report the pain score of 8/10 today as I stated above, most significantly in that right leg. It is worse upon arising either in the middle of the night or in the morning. Heat does help with this pain as well as her medications. She does take MiraLax and Movantik to help with the constipation that she experiences from her opioid medications. ALLERGIES: SPIRONOLACTONE, ADHESIVE TAPE, REGLAN, CEFOXITIN, ERYTHROMYCIN, CLARITHROMYCIN and CEFAZOLIN. MEDICATIONS: Reviewed and reconciled within the computer. PQRS: 1. She has diffuse osteoarthritis and denies any rheumatoid arthritis. 2. Height is 5 feet, weight is 99, BMI is 19. 3. Vital signs, 144/90, pulse is 86, respirations 14, oxygen sat is 99. 4. Pain score is 8/10. 5. Denies dizziness. Does need help walking, has not fallen in the last 3 months. 6. The patient is on Coumadin as well as takes hypertensive medicines. 7. Opiate therapy is greater than 6 weeks; therefore, an opioid signed contract is on the chart. Her risk assessment tool is low. Functional assessment is 28/70. 8. Recreational drug use, she denies. She is not a smoker and does not drink alcohol. [address] [address] PAIN MANAGEMENT CONSULTATION Name: JACOBO THAO Room #: REG [facility].#: [id number] Admission: 05/02/19 Attend Phys: Jossie Redding Discharge: Date of : 41 Report #: [id number] The patient is filling appropriately for her medications and is due for those today according to the prescription monitoring system. Her new morphine mEq with the increase in medication is 60 morphine mEq per day. PHYSICAL EXAMINATION: GENERAL: This is a very pleasant 78-year-old female who is alert and orientated, appears her stated age, placing her current pain score at 8/10. HEENT: Normocephalic, atraumatic. Extraocular eye muscles are intact. Mucous membranes are moist. She does have a dressing on her right ear from previous ear surgery. I did not remove the dressing and visualize this today. MUSCULOSKELETAL: She moves from sitting to standing very slowly. Her gait is antalgic. She has tenderness across the lumbosacral segment of her back. Pain is increased with flexion and extension. She has positive straight leg raising on the right consistent with L4 radiculopathy. Her lower extremity strength judged to be 4/5 on the right with weakness noted greater on the right. IMPRESSION: 1. Chronic intractable pain with multiple comorbidities. 2. Lumbar radiculopathy, post-laminectomy syndrome. 3. Lumbar spondylosis. 4. Spondylolisthesis. 5. Osteoarthritis. 6. Complex medical management due to comorbidities, cardiac and pulmonary. We reviewed the fact that opiate medications are being used to provide analgesia adequate to support activities of daily living, not attempting to achieve a specific pain score on the 0-10 Visual Analog Scale. The current opiate medications are providing sufficient analgesia to allow the patient to participate in activities of daily living. The patient is not exhibiting any aberrant behavior suggestive of drug diversion. The patient is not having any adverse reactions to medications. The patient is not suffering from daytime somnolence or mental acuity changes. The patient is managing opiate-induced constipation with appropriate [id number]-otkdclp agents and dietary considerations. The patient was counseled on concern for caution with operating a motor vehicle while using opiate medications. A physical exam was performed and the patient's functional status was evaluated. All patients with back pain were advised against the bed rest greater than 4 days and were advised to return to normal activities. Pain score assessment was noted and the treatment plan was reviewed with the patient. All current medications, both prescribed and OTC were reviewed and reconciled on the electronic medical record. Tobacco screening was accomplished and smoking cessation was advised when indicated. BMI was noted and diet/exercise modification was recommended for all patients following outside normal parameters. [address] [address] PAIN MANAGEMENT CONSULTATION Name: JACOBO THAO Room #: REG [facility]#: [id number] Admission: 05/02/19 Attend Phys: Jossie Redding Discharge: Date of : 42 Report #: [id number] I reviewed with the patient today their responsibilities to safeguard prescription medications, reviewed their responsibility to utilize medications only as prescribed by the physician. They are to seek and receive pain medications only from 1 physician group ( [facility]). They are to use 1 pharmacy and keep the clinic informed if they change pharmacies. Their responsibilities include making followup visits in a timely fashion and to avoid abrupt discontinuation of medication usage. Their responsibilities further include bringing their medications (bottles from the pharmacy with residual pills) to the visit for possible confirmation of pill counts and the patient understands it is their responsibility to submit to random drug screens to ensure both that the medications prescribed are present, and that no other controlled substances are present. All prescriptions provided today were generated electronically. PLAN: 1. We discussed treatment options with the patient today. The patient finds the increase in her hydrocodone beneficial as well as continuing to take her MS Contin. Scripts given today for hydrocodone 7.5/325, #120, and MS Contin 15 mg b.i.d., #60, for today, 4 and 8-week release. 2. We did talk about the use of a cane or a walker to help with her significant weakness on the right side. The patient is reluctant to use these, but she does rely heavily on her . I encouraged her to at least try the cane, it would help with her gaining some independence with her ambulation, especially after she arises first thing in the morning when she is stiff and has increased pain. 3. The patient does take Movantik as well as MiraLax for ongoing constipation issues. She does not have any side effects of daytime drowsiness for her medications. 4. The patient will follow up in 2 months. The patient was seen today with Dr. Otoole who also collaborated care. Her morphine mEq is 60 per day according to the CDC guidelines. <ELECTRONICALLY SIGNED> By: Jossie Redding 05/13/19 0748 [id number] Jossie Redding /nt
== END ==
LOC: PAIN 06:48
DX: M47.26 Other spondylosis with radiculopathy, lumbar region (principal); M96.1 Postlaminectomy syndrome, not elsewhere classified; M43.16 Spondylolisthesis, lumbar region; M19.90 Unspecified osteoarthritis, unspecified site; Z79.899 Other long term (current) drug therapy

== ENCOUNTER → 2019-06-07 | Outpatient (CLI) | payer OTHER ==
--- NOTE | 2019-06-07 10:41 | 2DMMODE ---
[facility] [place] [address] 2 D/M-MODE ECHOCARDIOGRAM Name: JACOBO THAO Room #: REG [facility]#: [id number] Admission: 06/07/19 Attend Phys: [facility] Dis[facility]: Date of : 41 Report #: [id number] THIS REPORT FOR: //name// APPROVED REPORT Study performed: 06/07/2019 08:49:10 EXAM: Comprehensive 2D, Doppler, and color-flow Echocardiogram Patient Location: Out-Patient Status: routine BSA: 1.39 HR: 60 bpm BP: 130/80 mmHg Rhythm: Pacemaker Other Information Study Quality: Good Indications AFIB, PACEMAKER. HX: CARDIOMYOPATHY, CVA. 2D Dimensions RVDd: 28.53 mm IVSd: 9.35 (7-11mm) LVOT Diam: 20.06 (18-24mm) LVDd: 42.07 mm PWd: 9.34 (7-11mm) Ascending Ao: 33.36 (22-36mm) LVDs: 34.31 (25-40mm) Aortic Root: 27.40 mm Volumes Left Atrial Volume (Systole) Single Plane 4CH: 31.66 mL Single Plane 2CH: 36.97 mL LA ESV Index: 28.00 mL/m2 Aortic Valve AoV Peak Andrea.: 0.91 m/s AO Peak Gr.: 3.31 mmHg LVOT Max P.40 mmHg LVOT Max V: 0.59 m/s LLOYD Vmax: 2.06 cm2 Mitral Valve E/A Ratio: 0.7 MV Decel. Time: 315.60 ms MV E Max Andrea.: 0.43 m/s [facility] [address] [place] [address] 2 D/M-MODE ECHOCARDIOGRAM Name: JACOBO THAO Room #: [facility]#: [id number] Admission: 06/07/19 Attend Phys: [facility]d [facility] Discharge: Date of : 41 Report #: [id number] A Andrea.: 0.58 m/s MV PHT: 91.52 ms IVRT: 148.79 ms Pulmonary Valve PV Peak Andrea.: 0.45 m/s PV Peak Gr.: 0.83 mmHg Pulmonary Vein P Vein S: 0.47 m/s P Vein D: 0.42 m/s P Vein S/D Ratio: 1.12 Tricuspid Valve TR Peak Andrea.: 2.90 m/s RAP Estimate: 5.00 mmHg TR Peak Gr.: 33.00 mmHg PA Pressure: 38.00 mmHg Left Ventricle The left ventricle is normal size. Regional wall motion abnormalities are noted. Paradoxical septal motion consistent with paced rhythm. Apical hypokinesis noted There is normal left ventricular wall thickness. Left ventricular systolic function is moderately decreased. LVEF is 35-40%. Mild diastolic dysfunction is present (impaired relaxation pattern). Right Ventricle The right ventricle is normal size. Right ventricle is mild to moderately hypokinetic. Pacemaker lead is present in the right ventricle. Atria The left atrium size is normal. The right atrium size is normal. Aortic Valve The aortic valve is normal in structure; mildly calcified. Trace aortic regurgitation. There is no aortic valvular stenosis. Mitral Valve Mitral valve leaflets are mildly thickened. Mild to moderate mitral regurgitation. Tricuspid Valve The tricuspid valve is normal in structure. Moderate tricuspid regurgitation. Estimated PAP is 35-40mmHg. [facility] [place] [address] 2 D/M-MODE ECHOCARDIOGRAM Name: JACOBO THAO Room #: REG [facility]#: [id number] Admission: 06/07/19 Attend Phys: Jd Dyson Discharge: Date of : 42 Report #: [id number] Pulmonic Valve The pulmonary valve is normal in structure. Trace pulmonic regurgitation. Great Vessels The aortic root is normal in size. The ascending aorta is normal in size. IVC is normal in size and collapses >50% with inspiration. Pericardium There is no pericardial effusion. <Conclusion> The left ventricle is normal size. Left ventricular systolic function is moderately decreased. LVEF is 35-40%. Regional wall motion abnormalities are noted. Paradoxical septal motion consistent with paced rhythm. Apical hypokinesis noted The right ventricle is normal size. Right ventricle is mild to moderately hypokinetic. Pacemaker lead is present in the right ventricle. The aortic valve is normal in structure; mildly calcified. Trace aortic regurgitation. Mitral valve leaflets are mildly thickened. Mild to moderate mitral regurgitation. The tricuspid valve is normal in structure. Moderate tricuspid regurgitation. Estimated PAP is 35-40mmHg. The pulmonary valve is normal in structure. Trace pulmonic regurgitation. There is no pericardial effusion. <ELECTRONICALLY SIGNED> By: Esteban Gaona MD 06/07/19 1040 39 Esteban Gaona MD /INF
== END ==
LOC: CV 08:17
DX: I08.3 Combined rheumatic disorders of mitral, aortic and tricuspid valves (principal); I48.91 Unspecified atrial fibrillation; I42.9 Cardiomyopathy, unspecified; Z88.8 Allergy status to other drugs, medicaments and biological substances; Z88.2 Allergy status to sulfonamides; Z88.0 Allergy status to penicillin; Z95.0 Presence of cardiac pacemaker

== ENCOUNTER → 2019-08-05 | Outpatient (CLI) | payer OTHER ==
[~2019-08-05] VITALS: Ht 152.4 cm; Wt 44.4 kg
[~2019-08-05] MED LIST changes: +HYDROCODON-ACE1 EA12 PO
--- NOTE | ~2019-08-05 | HPC ---
[facility] [place] [address] PAIN MANAGEMENT CONSULTATION Name: JACOBO THAO Keyona Room #: REG [facility] Adry.#: [id number] Admission: 08/05/19 Attend Phys: Mello Otoole MD Discharge: Date of : 41 Report #: [id number] THIS REPORT FOR: //name// CC: Oral Otoole DATE OF SERVICE: 08/05/2019 Followup visit for chronic intractable low back pain with radiculopathy. The patient returns to pain clinic today and was seen in conjunction with Jossie Redding, advanced nurse practitioner. She has chronic intractable pain with radiculopathy and has had previous laminectomy. She now has a spondylolisthesis, which creates an impression upon the right L4 nerve root. She has classic L4 radiculopathy. She is here today hopeful for another epidural injection. She also receives medications from us under terms of written agreement. She was last provided medication in the form of hydrocodone and morphine averaging 60 morphine milligram equivalents a day. She has no significant side effects, carefully safeguards her medication, is grateful for the medication relief that it provides. Renewal prescriptions were provided for her under terms of our opioid agreement. PQRS REVIEW: Positive for diffuse osteoarthritis. She is 5 feet. Her BMI remains below 20, at 19 and this is normal for her. Blood pressure 126/82, heart rate 78, respirations 14. Pain score is 10/10. She has not fallen in the last 3 months, but is certainly a fall risk, weak and difficult for her to ambulate. She is on Coumadin and takes antihypertensive medications and is on an opioid agreement, which has been signed and is on her chart. We reviewed the important issues. We have completed an opioid risk tool and she is at low risk for addiction. Her functional assessment score remains pretty good at 28/70 for her chronic disease. She denies recreational drugs. Does not use tobacco or alcohol. PHYSICAL EXAMINATION: VITAL SIGNS: As noted above. She has multiple bruises related to her chronic use of Coumadin. All medications have been reviewed and reconciled. She has pain across her low back. Positive straight leg raising. IMPRESSION: 1. She has chronic intractable back pain with radiculopathy. 2. Post-laminectomy syndrome. 3. Diffuse osteoarthritis. 4. Multiple pain generators with chronic intractable pain. 5. Complex pain medication management under terms of written opioid agreement. [address] [address] PAIN MANAGEMENT CONSULTATION Name: MASTERJACOBO Room #: REG [facility] Harriet#: [id number] Admission: 08/05/19 Attend Phys: Mello Otoole MD Discharge: Date of : 41 Report #: [id number] PLAN: Medications were renewed for her under terms of our agreement and we have also agreed to go forward today with epidural injection under fluoroscopic guidance. PROCEDURE: Left L4-L5 transforaminal epidural injection under fluoroscopic guidance. After informed consent, she was taken to fluoroscopic suite. She was placed prone, skin prepped with ChloraPrep. Skin anesthetized over the L4-L5 neural foramen. Using triplanar fluoroscopic views, I advanced the needle into the epidural space. A 0.25 mL of Omnipaque was injected. Spread was seen along the dye along the nerve and also into the epidural space. I slightly advanced the needle further to extend medication further into the epidural space. There were no paresthesias. I then injected easily a total of 2 mL of 0.5% lidocaine mixed with 40 mg of triamcinolone. She tolerated the procedure well and was observed for 45 minutes in the recovery room and discharged without complication. Followup visit planned as needed. By: [id number] Mello Otoole MD /nt
[2019-08-05 08:51] VITALS: BP 126/82
--- NOTE | 2019-08-05 09:04 | NUR ---
Pain Clinic Assessment: 1. History of Osteoarthritis: HANDS FEET BACK WRISTS History of Rheumatoid Arthritis: Not Applicable 2. Height: 5 ft. 0 in. 152.4 cm. Weight: 97.8 lb. oz. 44.362 kg. Patient's BMI: 19.1 3. Vital Signs: BP: 126/82 Pulse: 78 Resp: 14 Temp: 02 Sat: 99 ECG Mon: 4. Pain Intensity: 10 5. Fall Risk: Dizziness: N Needs help standing or walking: N Fallen in the last 3 months: N Fall risk comments: 6. Patient on Blood Thinner: Warfarin (Coumadin) 7. History of Hypertension: Y 8. Opioid Therapy greater than 6 weeks: Y Opiate Contract Signed: 08/03/17 9. Risk Assessment Tool Provided: LOW RISK 08/02 10. Functional Assessment Tool: 11. Recreational Drug Use: Never Drug Type: Tobacco Use: Never Smoker Tobacco Type: Amount or Packs/day: How Many Years: Alcohol Use: No Frequency: Quant:
== END | disposition home or self-care (01) ==
LOC: PAIN 06:49
DX: M54.16 Radiculopathy, lumbar region (principal); G89.29 Other chronic pain; M96.1 Postlaminectomy syndrome, not elsewhere classified; M19.90 Unspecified osteoarthritis, unspecified site; M43.10 Spondylolisthesis, site unspecified; Z79.01 Long term (current) use of anticoagulants; Z79.899 Other long term (current) drug therapy; Z98.890 Other specified postprocedural states; Z88.8 Allergy status to other drugs, medicaments and biological substances

== ENCOUNTER → 2019-09-19 | Outpatient (CLI) | payer OTHER | END | disposition home or self-care (01) | LOC: CAT 08:50 | DX: M25.511 Pain in right shoulder (principal); M75.111 Incomplete rotator cuff tear or rupture of right shoulder, not specified as traumatic; Z98.890 Other specified postprocedural states; Z79.899 Other long term (current) drug therapy; Z95.0 Presence of cardiac pacemaker; Z88.8 Allergy status to other drugs, medicaments and biological substances; Z86.73 Personal history of transient ischemic attack (TIA), and cerebral infarction without residual deficits ==

== ENCOUNTER → 2019-10-21 | Outpatient (CLI) | payer OTHER ==
[~2019-10-21] VITALS: Ht 152.4 cm; Wt 45.4 kg
[2019-10-21 08:48] VITALS: BP 138/100
--- NOTE | 2019-10-21 08:56 | NUR ---
Pain Clinic Assessment: 1. History of Osteoarthritis: HANDS FEET BACK WRISTS History of Rheumatoid Arthritis: DENIES 2. Height: 5 ft. 0 in. 152.4 cm. Weight: 100.0 lb. oz. 45.360 kg. Patient's BMI: 19.5 3. Vital Signs: BP: 138/100 Pulse: 73 Resp: 18 Temp: 02 Sat: 98 ECG Mon: 4. Pain Intensity: 7 5. Fall Risk: Dizziness: N Needs help standing or walking: N Fallen in the last 3 months: N Fall risk comments: 6. Patient on Blood Thinner: Warfarin (Coumadin) 7. History of Hypertension: Y 8. Opioid Therapy greater than 6 weeks: Y Opiate Contract Signed: 08/03/17 9. Risk Assessment Tool Provided: LOW RISK 08/02 10. Functional Assessment Tool: 11. Recreational Drug Use: Never Drug Type: Tobacco Use: Never Smoker Tobacco Type: Amount or Packs/day: How Many Years: Alcohol Use: No Frequency: Quant:
--- NOTE | 2019-10-21 15:30 | HPC ---
[facility] [address] [place] [address] PAIN MANAGEMENT CONSULTATION Name: JACOBO THAO Room #: REG [facility] Pablo#: [id number] Admission: 10/21/19 Attend Phys: Jossie Redding Discharge: Date of : 42 Report #: [id number] THIS REPORT FOR: cc: Oral Rodriguez MD, Rene P. MD Hocker,Jossie JENSEN ~ DATE OF SERVICE: 10/21/2019 CHIEF COMPLAINT: Chronic intractable low back pain with radiculopathy. HISTORY OF PRESENT ILLNESS: This is a very pleasant 78-year-old female who returns to the pain clinic today for refill of her medications. She is reporting a pain score today is 7/10. She feels that the epidural steroid injection that she received from Dr. Mello Otoole in July was very beneficial. She is still at least 50% better, 2 months later. She reports her pain is in her lower back that radiates into her right hip down the posterior aspect of her leg into her ankle. There is a sharp, stabbing, cramping feeling, worse with any activity, walking and she feels that the medications are very beneficial as well as a heating pad. The patient denies any problems with constipation as long as she takes MiraLax and Movantik on a daily basis. She does take those for opioid-induced constipation. The patient is only is considering another epidural, but currently with a COVID virus, she is trying to hold off as long as possible. She is on her blood thinner today with an INR of 3.1. ALLERGIES: SPIRONOLACTONE, ADHESIVE TAPE, REGLAN, CEFOXITIN, ERYTHROMYCIN, CLARITHROMYCIN AND CEFAZOLIN. CURRENT LIST OF MEDICATIONS: Morphine sulfate 15 mg b.i.d., hydrocodone 7.5/325 q.i.d. p.r.n., Prolia, warfarin, vitamin D, prednisone, Tigan, omeprazole, metoprolol, Movantik, Demadex, Uloric, MiraLax, colchicine, travoprost drops, potassium, vitamin B12, amiodarone, and levothyroxine. PQRS: 1. She has a history of osteoarthritis in her back, feet, wrist and hands. Denies any rheumatoid arthritis. 2. Height is 5 feet, weight is 100, BMI is 19. 3. Vital signs, blood pressure 138/100, pulse is 73, respirations 18, oxygen sat is 98. 4. Pain score is 7/10. 5. Denies dizziness, does not need help walking or standing, has not fallen in the last 3 months. 6. The patient is on Coumadin. 7. She has a history of hypertension. Opioid therapy is greater than 6 weeks; [address] [address] PAIN MANAGEMENT CONSULTATION Name: JACOBO THAO Room #: REG [facility]#: [id number] Admission: 10/21/19 Attend Phys: Jossie Redding Discharge: Date of : 42 Report #: [id number] therefore, an opioid signed contract is on the chart. 8. Risk assessment tool is low. Functional assessment is 28/70. 9. Recreational drug use, she denies. She is not a smoker and does not drink alcohol. According to the prescription monitoring system, the patient is filling appropriately for her medications, filling them in a timely fashion. She is due to fill those medications today. Her current morphine mEq per day is 60. PHYSICAL EXAMINATION: GENERAL: This is alert and orientated 78-year-old female who appears her stated age, placing her current pain score at 7/10. HEENT: Normocephalic, atraumatic. Extraocular eye muscles are intact. Mucous membranes are moist. MUSCULOSKELETAL: She has pain across the lumbar spine that radiates down her right leg following the L4-L5 dermatomal distribution. Her straight leg raising is positive. She walks with a slow antalgic gait. Lower extremity strength judged to be 4/5 in all major muscle groups. IMPRESSION: 1. Chronic intractable pain with multiple comorbidities. 2. Lumbar radiculopathy, post-laminectomy syndrome. 3. Lumbar spondylosis. 4. Spondylolisthesis. 5. Osteoarthritis. 6. Complex medical management due to comorbidities, cardiac and pulmonary. We reviewed the fact that opiate medications are being used to provide analgesia adequate to support activities of daily living, not attempting to achieve a specific pain score on the 0-10 Visual Analog Scale. The current opiate medications are providing sufficient analgesia to allow the patient to participate in activities of daily living. The patient is not exhibiting any aberrant behavior suggestive of drug diversion. The patient is not having any adverse reactions to medications. The patient is not suffering from daytime somnolence or mental acuity changes. The patient is managing opiate-induced constipation with appropriate svph-ljs-ncasefx agents and dietary considerations. The patient was counseled on concern for caution with operating a motor vehicle while using opiate medications. PLAN: 1. We discussed treatment options with the patient today. The patient felt her epidural steroid injection is still helping at least 50%, it was higher in the first month. It has now been 3 months since her injection. She is starting to consider a possible appointment for another injection, but since the COVID-19 virus, she is going to try and hold off. We did discuss if her pain does increase significantly, we may call in a Medrol Dosepak to try and keep her at [facility] [address] [place] [address] PAIN MANAGEMENT CONSULTATION Name: JACOBO THAO Room #: REG [facility]#: [id number] Admission: 10/21/19 Attend Phys: Jossie Redding Discharge: Date of : 42 Report #: [id number] home during this virus outbreak. The patient verbalizes understanding. 2. We will refill her MS Contin 15 mg b.i.d. and hydrocodone 7.5/325, #120 for 3 months of each medicine. These will be sent electronically by Dr. Mello Otoole to her pharmacy. 3. The patient does continue to take her Movantik and her MiraLax for her opioid-induced constipation. 4. The patient is seen today in collaboration with Dr. Mello Otoole. The patient will call when needing another prescription refill or injection. <ELECTRONICALLY SIGNED> By: Jossie Redding 10/21/19 1530 [id number] Jossie Redding /nt
== END ==
LOC: PAIN 06:41
DX: M47.26 Other spondylosis with radiculopathy, lumbar region (principal); M43.16 Spondylolisthesis, lumbar region; M19.90 Unspecified osteoarthritis, unspecified site; G89.29 Other chronic pain; Z88.1 Allergy status to other antibiotic agents; Z88.2 Allergy status to sulfonamides; Z88.8 Allergy status to other drugs, medicaments and biological substances; Z79.84 Long term (current) use of oral hypoglycemic drugs; Z79.899 Other long term (current) drug therapy

== ENCOUNTER → 2019-12-16 | Outpatient (CLI) | payer OTHER | LOC: ULTRA 11:55 | DX: M79.662 Pain in left lower leg (principal); M79.89 Other specified soft tissue disorders ==

== ENCOUNTER → 2019-12-19 | Outpatient (CLI) | payer OTHER ==
[~2019-12-19] VITALS: Ht 152.4 cm; Wt 46.2 kg
[2019-12-19 09:16] VITALS: BP 135/73
--- NOTE | 2019-12-19 09:21 | NUR ---
Pain Clinic Assessment: 1. History of Osteoarthritis: HANDS FEET BACK WRISTS History of Rheumatoid Arthritis: DENIES 2. Height: 5 ft. 0 in. 152.4 cm. Weight: 101.8 lb. oz. 46.176 kg. Patient's BMI: 19.9 3. Vital Signs: BP: 135/73 Pulse: 73 Resp: 18 Temp: 02 Sat: 100 ECG Mon: 4. Pain Intensity: 7 5. Fall Risk: Dizziness: N Needs help standing or walking: N Fallen in the last 3 months: N Fall risk comments: 6. Patient on Blood Thinner: Warfarin (Coumadin) 7. History of Hypertension: Y 8. Opioid Therapy greater than 6 weeks: Y Opiate Contract Signed: 08/03/17 9. Risk Assessment Tool Provided: LOW RISK 08/02 10. Functional Assessment Tool: 11. Recreational Drug Use: Never Drug Type: Tobacco Use: Never Smoker Tobacco Type: Amount or Packs/day: How Many Years: Alcohol Use: No Frequency: Quant:
--- NOTE | 2019-12-26 11:57 | HPC ---
[facility] [place] [address] PAIN MANAGEMENT CONSULTATION Name: JACOBO THAO Room #: REG [facility] Lazarus.#: [id number] Admission: 12/19/19 Attend Phys: Mello Otoole MD Discharge: Date of : 42 Report #: [id number] THIS REPORT FOR: cc: Oral Rodriguez MD, Rene P. MD Morgan, Richard L. MD ~ CC: Oral Otoole DATE OF SERVICE: 12/19/2019 Followup visit for chronic low back pain with radiculopathy. The patient is here today with her . She would like an epidural injection. I also provide for her hydrocodone and morphine under terms of written opioid agreement. Her MME score is 60. She has been on opioids for a long time. She denies side effects and she is grateful for the pain relief and improvement in day-to-day function that they provide her. She understands how critical it is for her at 79 years of age to be responsible for the medications and safeguard them from others. She does so. She has been seeing a neurologist, ____. She has had some edema. They are adjusting her diuretics. Her last injection was a transforaminal injection on the right at L5-S1. She has discontinued her Coumadin today in anticipation of that injection. She reports at times up to 70% relief for many months. PQRS review is positive for diffuse osteoarthritis involving hands, feet, back and wrists. Her BMI is 19.5. Blood pressure 135/73, heart rate 73, respirations 18, O2 sat 100, pain intensity 7. She has no falls recently. She is on Coumadin, but discontinued it with an INR of 1.2 today with anticipation of her injection. Opioid agreement was signed years ago and reviewed less than 2 years ago. We have discussed the important aspects of that agreement and I have reviewed her prescriptions under the prescription drug monitoring information. There are no unexpected entries. Pain is notable across the low back. Positive straight leg raising is noted on the right. IMPRESSION: Chronic low back pain with spondylosis and radiculopathy. PROCEDURE: Epidural steroid injection, right transforaminal L5-S1 under fluoroscopic guidance. [address] [address] PAIN MANAGEMENT CONSULTATION Name: JACOBO THAO Key[place] Room #: REG [facility] Pablo#: [id number] Admission: 12/19/19 Attend Phys: Mello Otoole MD Discharge: Date of : 41 Report #: [id number] She was taken to fluoroscopic suite, placed prone, skin prepped with ChloraPrep. Skin anesthetized over the L5-S1 neural foramen. Using triplanar fluoroscopic views, I advanced needle into the neural foramen. A 1 mL of Omnipaque was injected. Good spread of dye observed in the epidural space, was followed by 3 mL of 0.5% lidocaine mixed with 80 mg of triamcinolone. She tolerated the procedure well. Pain score was 0 at discharge. Followup visit planned as needed. <ELECTRONICALLY SIGNED> By: Mello Otoole MD 12/26/19 [id number] Mello Otoole MD /nt
== END | disposition home or self-care (01) ==
LOC: PAIN 06:40
PROVIDERS: ATTEND Anesthesiology Pain Medicine
DX: M47.26 Other spondylosis with radiculopathy, lumbar region (principal); G89.29 Other chronic pain; M19.90 Unspecified osteoarthritis, unspecified site; Z98.890 Other specified postprocedural states; Z79.899 Other long term (current) drug therapy; Z79.891 Long term (current) use of opiate analgesic; Z88.8 Allergy status to other drugs, medicaments and biological substances

== ENCOUNTER → 2020-03-26 | Outpatient (CLI) | payer OTHER ==
[~2020-03-26] MED LIST changes: +GABAPENTIN100 MG PO
== END ==
LOC: SJCVC 09:56
PROVIDERS: ATTEND Internal Medicine Cardiovascular Disease
DX: Z45.018 Encounter for adjustment and management of other part of cardiac pacemaker (principal); R94.31 Abnormal electrocardiogram [ECG] [EKG]; I42.8 Other cardiomyopathies; I50.20 Unspecified systolic (congestive) heart failure; N18.4 Chronic kidney disease, stage 4 (severe); Z79.899 Other long term (current) drug therapy

== ENCOUNTER → 2020-03-26 | Outpatient (CLI) | payer OTHER ==
[~2020-03-26] VITALS: Ht 152.4 cm; Wt 47.2 kg
[2020-03-26 09:17] VITALS: BP 150/90
--- NOTE | 2020-03-26 09:19 | NUR ---
Pain Clinic Assessment: 1. History of Osteoarthritis: HANDS FEET BACK WRISTS History of Rheumatoid Arthritis: DENIES 2. Height: 5 ft. 0 in. 152.4 cm. Weight: 104.0 lb. oz. 47.174 kg. Patient's BMI: 20.3 3. Vital Signs: BP: 150/90 Pulse: 74 Resp: 16 Temp: 02 Sat: 100 ECG Mon: 4. Pain Intensity: 7 5. Fall Risk: Dizziness: N Needs help standing or walking: N Fallen in the last 3 months: N Fall risk comments: 6. Patient on Blood Thinner: Warfarin (Coumadin) 7. History of Hypertension: Y 8. Opioid Therapy greater than 6 weeks: Y Opiate Contract Signed: 08/03/17 9. Risk Assessment Tool Provided: LOW RISK 1 10. Functional Assessment Tool: 11. Recreational Drug Use: Never Drug Type: Tobacco Use: Never Smoker Tobacco Type: Amount or Packs/day: How Many Years: Alcohol Use: No Frequency: Quant:
--- NOTE | 2020-03-27 09:14 | HPC ---
[facility] [address] [place] [address] PAIN MANAGEMENT CONSULTATION Name: JACOBO THAO Room #: REG ASIA Shah#: [id number] Admission: 03/26/20 Attend Phys: Jossie Redding Discharge: Date of : 41 Report #: [id number] THIS REPORT FOR: cc: Oral Rodriguez MD, Rene P. MD Hocker, Amanda CNS ~ CC: Mello Otoole MD DATE OF SERVICE: 03/26/2020 CHIEF COMPLAINT: Chronic low back pain with radiculopathy. HISTORY OF PRESENT ILLNESS: This is a very pleasant 79-year-old female who returns to the pain clinic today for discussion on her medication management. Today, she is reporting a pain score of 7/10. It is located in her low back that radiates down her right leg. She states that the epidural that Dr. Mello Otoole performed in November helped at least 50% for several months. She feels that it is still helping some today. She states since she saw him last she has developed sensations in her lower extremities, feeling like "bugs crawling on them throughout the day." Denies numbness and tingly in her lower extremities, just this sensation that comes and goes. She finds that her medication is beneficial in helping relieve most of her pain. Her pain is worse with sitting, standing and walking. She feels that the medication is beneficial as well as her periodic injections. Today, she would like refills of her medication. ALLERGIES: SPIRONOLACTONE, ADHESIVE TAPE, REGLAN, CEFOXITIN, ERYTHROMYCIN, CLARITHROMYCIN AND CEFAZOLIN. CURRENT LIST OF MEDICATIONS: Morphine sulfate ER 15 mg b.i.d., hydrocodone 7.5/325 q.i.d. p.r.n., Coumadin, Prolia, vitamin D, prednisone, omeprazole, metoprolol, Movantik, Demadex, Uloric, Flovent, MiraLax, colchicine, potassium, vitamin B12, levothyroxine, amiodarone. PQRS: 1. She has a history of osteoarthritis in her hands, feet, back and wrists that is diffuse. She denies any rheumatoid arthritis. 2. Height is 5 feet, weight is 104. BMI is 20. 3. Vital signs; blood pressure 150/90, pulse is 74, respirations 16, oxygen sat is 100, pain score is 7/10. 4. Fall risk. Denies dizziness, does not need help walking or standing, has not fallen in the last 3 months. The patient is on Coumadin as well as medicines for hypertension. 5. Her opioid therapy is greater than 6 weeks; therefore, an opioid signed contract is on the chart. Risk assessment is low. Functional assessment 66/70. 6. Recreational drug use, she denies. She is not a smoker and does not drink [address] [address] PAIN MANAGEMENT CONSULTATION Name: JACOBO THAO Room #: REG [facility] Pablo#: [id number] Admission: 03/26/20 Attend Phys: Jossie Redding Discharge: Date of : 42 Report #: [id number] alcohol. According to the prescription monitoring system, the patient is filling appropriately in a timely fashion. Her morphine milliequivalent is 60 MMEs per day. We will check a random drug screen on this lady today. PHYSICAL EXAMINATION: GENERAL: This is alert and orientated, well-nourished 79-year-old female who appears her stated age, placing her current pain score at 7/10. HEENT: Normocephalic, atraumatic. Extraocular eye muscles are intact. Mucous membranes are moist. EXTREMITIES: No clubbing, no cyanosis, 1+ edema in her lower extremities. MUSCULOSKELETAL: Positive straight leg raising is noted on the right. She has notable pain across the lumbar region of her spine. She is wearing a brace on her left pinky finger due to recent tendon tear. Slight discomfort is reported. The patient walks with a slow antalgic gait. Lower extremity strength judged to be 4/5 in all major muscle groups. IMPRESSION: 1. Chronic intractable pain with multiple comorbidities. 2. Lumbar radiculopathy, post-laminectomy syndrome. 3. Lumbar spondylosis. 4. Spondylolisthesis. 5. Diffuse osteoarthritis. 6. Complex medical management due to comorbidities of cardiac and pulmonary. We reviewed the fact that opiate medications are being used to provide analgesia adequate to support activities of daily living, not attempting to achieve a specific pain score on the 0-10 Visual Analog Scale. The current opiate medications are providing sufficient analgesia to allow the patient to participate in activities of daily living. The patient is not exhibiting any aberrant behavior suggestive of drug diversion. The patient is not having any adverse reactions to medications. The patient is not suffering from daytime somnolence or mental acuity changes. The patient is managing opiate-induced constipation with appropriate qedr-mdr-ovabrda agents and dietary considerations. The patient was counseled on concern for caution with operating a motor vehicle while using opiate medications. PLAN: 1. We discussed treatment options with the patient today. She felt that the injection that Dr. Mello Otoole performed in November was beneficial in relieving her pain as well as her continued opioid medications. Today, she is requesting refills. We will have Dr. Mello Otoole send her morphine sulfate 15 mg b.i.d., #60 for today, 4 and 8-week release as well as hydrocodone 7.5/325, #120 for 3 months as well. 2. We discussed her neuropathy that she is feeling in her lower extremities. [facility] [address] [place] [address] PAIN MANAGEMENT CONSULTATION Name: JACOBO THAO [id number] Admission: 03/26/20 Attend Phys: Jossie Redding Discharge: Date of : 41 Report #: [id number] She does feel that this started in the past few months. It is not constant throughout the day, but is bothersome. I did discuss this with Dr. Mello Otoole. We have decided on a low dose gabapentin 100 mg, patient to take at bedtime. If after a week she finds this beneficial, but still continues to have symptoms, she is to call our office, we may increase it to 2 tablets at bedtime or one in the morning and one at night, depending on daytime somnolence. The patient does have lower extremity edema. Cautioned her to keep an eye on this. If it increases significantly, she is to stop her gabapentin. The patient also has some kidney issues, but we feel that this low dose she will find benefit for her legs. 3. The patient will give us a random drug screen today. There is not one been on the chart for over a year. 4. The patient is seen and collaborated with Dr. Mello Otoole today. <ELECTRONICALLY SIGNED> By: Jossie Redding [id number] Jossie Redding /ayden
== END ==
LOC: PAIN 06:47
PROVIDERS: ATTEND Clinical Nurse Specialist Adult Health
DX: M43.16 Spondylolisthesis, lumbar region (principal); F11.20 Opioid dependence, uncomplicated; M19.90 Unspecified osteoarthritis, unspecified site; M47.26 Other spondylosis with radiculopathy, lumbar region; M96.1 Postlaminectomy syndrome, not elsewhere classified; Z88.8 Allergy status to other drugs, medicaments and biological substances; Z79.899 Other long term (current) drug therapy

== ENCOUNTER → 2020-04-07 | Outpatient (CLI) | payer OTHER | LOC: ULTRA 11:18 | PROVIDERS: ATTEND Family Medicine | DX: M79.89 Other specified soft tissue disorders (principal) ==

== ENCOUNTER → 2020-04-28 | Outpatient (CLI) | payer OTHER | LOC: SJCVCIMAG 07:43 | PROVIDERS: ATTEND Internal Medicine Cardiovascular Disease | DX: Z45.018 Encounter for adjustment and management of other part of cardiac pacemaker (principal); I07.1 Rheumatic tricuspid insufficiency; I48.21 Permanent atrial fibrillation; I42.8 Other cardiomyopathies; Z79.899 Other long term (current) drug therapy ==

== ENCOUNTER → 2020-05-12 | Outpatient (CLI) | payer OTHER | LOC: SJCVC 12:57 | PROVIDERS: ATTEND Internal Medicine Cardiovascular Disease | DX: R00.0 Tachycardia, unspecified (principal); R94.31 Abnormal electrocardiogram [ECG] [EKG]; I49.5 Sick sinus syndrome; I48.0 Paroxysmal atrial fibrillation; E11.9 Type 2 diabetes mellitus without complications; J45.909 Unspecified asthma, uncomplicated; E03.9 Hypothyroidism, unspecified; I11.0 Hypertensive heart disease with heart failure; I50.30 Unspecified diastolic (congestive) heart failure; M81.0 Age-related osteoporosis without current pathological fracture; Z82.49 Family history of ischemic heart disease and other diseases of the circulatory system; Z79.899 Other long term (current) drug therapy; Z95.0 Presence of cardiac pacemaker; Z79.82 Long term (current) use of aspirin; Z79.01 Long term (current) use of anticoagulants; Z86.73 Personal history of transient ischemic attack (TIA), and cerebral infarction without residual deficits ==

== ENCOUNTER → 2020-06-01 | Outpatient (CLI) | payer OTHER ==
[~2020-06-01] VITALS: Ht 152.4 cm; Wt 49.0 kg
[2020-06-01 09:04] VITALS: BP 145/84
--- NOTE | 2020-06-01 09:09 | NUR ---
Pain Clinic Assessment: 1. History of Osteoarthritis: HANDS FEET BACK WRISTS History of Rheumatoid Arthritis: DENIES 2. Height: 5 ft. 0 in. 152.4 cm. Weight: 108.0 lb. oz. 48.988 kg. Patient's BMI: 21.1 3. Vital Signs: BP: 145/84 Pulse: 88 Resp: 16 Temp: 02 Sat: 98 ECG Mon: 4. Pain Intensity: 7 5. Fall Risk: Dizziness: N Needs help standing or walking: N Fallen in the last 3 months: N Fall risk comments: 6. Patient on Blood Thinner: Warfarin (Coumadin) 7. History of Hypertension: Y 8. Opioid Therapy greater than 6 weeks: Y Opiate Contract Signed: 08/03/17 9. Risk Assessment Tool Provided: LOW RISK 1 10. Functional Assessment Tool: 11. Recreational Drug Use: Never Drug Type: Tobacco Use: Never Smoker Tobacco Type: Amount or Packs/day: How Many Years: Alcohol Use: No Frequency: Quant:
--- NOTE | 2020-06-02 08:46 | HPC ---
[facility] [address] [place] [address] PAIN MANAGEMENT CONSULTATION Name: JACOBO THAO Room #: REG ASIA Shah#: [id number] Admission: 06/01/20 Attend Phys: Jossie Redding Discharge: Date of : 41 Report #: [id number] CC: Jossie Otoole MD DATE OF SERVICE: 06/01/2020 CHIEF COMPLAINT: Chronic low back pain with radiculopathy. HISTORY OF PRESENT ILLNESS: This is a very pleasant 79-year-old female who is here in the pain clinic with her today for refills of her medications. Today, she is reporting her pain score a 7/10, most centrally located in her lower back, though it does radiate down her right leg. She also is complaining of some swelling in her right lower extremity. She reports that she has found it may be related to her Prolia. She is not going to take that her next scheduled dose and see if her swelling in her lower extremities does resolve. The patient reports that her pain is worse with standing, walking and lying down. She does find the medications beneficial as well as heat, though today she reports she would like to try to decrease her morphine. She reports she would like to decrease some of her opioid medications and start with medicine. Overall, she believes that she will be able to tolerate decreasing her medications. She reports her pain may increase, but she feels that she will be able to make adjustments at home in her activity levels if it does. She would at least like to try decreasing her medications. The patient does report that she attempted gabapentin taking 100 mg tablet at bedtime, but then was sleepy for the next day and a half. She did not continue that medication. ALLERGIES: SPIRONOLACTONE, ADHESIVE TAPE, REGLAN, ERYTHROMYCIN, CLARITHROMYCIN AND CEFAZOLIN. CURRENT LIST OF MEDICATIONS: Morphine ER b.i.d., hydrocodone 7.5/325 q.i.d. p.r.n., warfarin and see extensive list in the computer. PQRS: 1. She does have osteoarthritis that is diffuse and denies any rheumatoid arthritis. 2. Height is 5 feet, weight is 108, BMI is 21. 3. Vital signs; blood pressure 145/84, pulse is 88, respirations 16, oxygen sat is 98. 4. Pain score is 7/10. 5. Denies dizziness, does not need help walking or standing, has not fallen in the last 3 months. 6. The patient is on warfarin as well as medicines for hypertension. 7. Opioid therapy is greater than 6 weeks; therefore, an opioid signed contract is on the chart. Risk assessment is low. Functional assessment 66/70. 8. Recreational drug use, she denies. She is not a smoker and does not drink alcohol. According to the prescription monitoring system, the patient is filling appropriately for her medications in a timely fashion. Her morphine milliequivalent is 60 MMEs per day. There is a recent drug screen on the chart and was positive for her hydrocodone and negative for her morphine. The patient does report taking it, but now we are going to try and decrease this medication. PHYSICAL EXAMINATION: GENERAL: This is alert and orientated 79-year-old female, rating her pain score at 7/10 today. HEENT: Normocephalic, atraumatic. Extraocular eye muscles are intact. Mucous membranes are moist. She does have a bruise on her right jaw. HEENT: Normocephalic, atraumatic. Extraocular eye muscles are intact. She is wearing a mask. MUSCULOSKELETAL: She has pain in the lumbar spine that radiates down her right leg following the L4-L5 dermatomal distribution. She has a slow antalgic gait. Straight leg raising is positive on the right. Her lower extremity strength is deconditioned at 4/5. Does have 1+ edema in her right lower extremity. ASSESSMENT: 1. Chronic intractable pain with multiple comorbidities. 2. Lumbar radiculopathy, post-laminectomy syndrome. 3. Lumbar spondylosis. 4. Spondylolisthesis. 5. Osteoarthritis affecting multiple joints. 6. Complex medical management. We reviewed the fact that opiate medications are being used to provide analgesia adequate to support activities of daily living, not attempting to achieve a specific pain score on the 0-10 Visual Analog Scale. The current opiate medications are providing sufficient analgesia to allow the patient to participate in activities of daily living. The patient is not exhibiting any aberrant behavior suggestive of drug diversion. The patient is not having any adverse reactions to medications. The patient is not suffering from daytime somnolence or mental acuity changes. The patient is managing opiate-induced constipation with appropriate cdcg-too-hswqpqt agents and dietary considerations. The patient was counseled on concern for caution with operating a motor vehicle while using opiate medications. PLAN: 1. We discussed treatment options with the patient today. The patient would like to attempt to decrease her medications. We had a long discussion regarding dependency of medications, explaining that we will gladly have her attempt to decrease her medications, but due to her multiple comorbidities, she may find that her medications are beneficial in allowing her to be more active at home. We will follow her wishes and encouraged her to decrease 1 tablet of morphine 15 mg a day, doing this for the next month allowing her body time to adjust to her new level. She may continue her hydrocodone 7.5/325 as she has been up to 4 times a day. 2. The patient encouraged to call our office in 30 days, if she finds that her medication decrease has been beneficial and has been effective and still tolerating her pain effectively, she may decrease her morphine altogether. We will continue her on her hydrocodone or we may raise her hydrocodone slightly depending on her report. 3. Scripts will be sent electronically today for morphine sulfate 15 mg, #60. This may be needed if she is not tolerating her decrease. We will continue her hydrocodone 7.5, #120. 4. I encouraged the patient to continue to be remaining off her gabapentin, which did cause significant somnolence. The patient is seen today in collaboration with Dr. Mello Otoole. <ELECTRONICALLY SIGNED> By: Jossie Redding 06/02/20 [id number] Jossie crowlye
== END ==
LOC: PAIN 06:57
PROVIDERS: ATTEND Clinical Nurse Specialist Adult Health
DX: M47.26 Other spondylosis with radiculopathy, lumbar region (principal); M43.16 Spondylolisthesis, lumbar region; G89.4 Chronic pain syndrome; Z79.891 Long term (current) use of opiate analgesic

== ENCOUNTER → 2020-06-02 | Outpatient (CLI) | payer OTHER | LOC: SJCVC 10:33 | PROVIDERS: ATTEND Internal Medicine Cardiovascular Disease | DX: R94.31 Abnormal electrocardiogram [ECG] [EKG] (principal); I48.21 Permanent atrial fibrillation; I49.5 Sick sinus syndrome ==

== ENCOUNTER → 2020-08-31 | Outpatient (CLI) | payer OTHER ==
[~2020-08-31] VITALS: Ht 152.4 cm; Wt 48.1 kg
[2020-08-31 08:50] VITALS: BP 139/73
--- NOTE | 2020-08-31 09:07 | NUR ---
Pain Clinic Assessment: 1. History of Osteoarthritis: HANDS FEET BACK WRISTS History of Rheumatoid Arthritis: DENIES 2. Height: 5 ft. 0 in. 152.4 cm. Weight: 106.0 lb. oz. 48.081 kg. Patient's BMI: 20.7 3. Vital Signs: BP: 139/73 Pulse: 65 Resp: 14 Temp: 02 Sat: 98 ECG Mon: 4. Pain Intensity: 6 5. Fall Risk: Dizziness: N Needs help standing or walking: N Fallen in the last 3 months: N Fall risk comments: 6. Patient on Blood Thinner: Warfarin (Coumadin) 7. History of Hypertension: Y 8. Opioid Therapy greater than 6 weeks: Y Opiate Contract Signed: 08/03/17 9. Risk Assessment Tool Provided: LOW RISK 1 10. Functional Assessment Tool: 11. Recreational Drug Use: Never Drug Type: Tobacco Use: Never Smoker Tobacco Type: Amount or Packs/day: How Many Years: Alcohol Use: No Frequency: Quant:
== END ==
LOC: PAIN 06:46
PROVIDERS: ATTEND Anesthesiology Pain Medicine
DX: G89.4 Chronic pain syndrome (principal); M43.16 Spondylolisthesis, lumbar region; M54.16 Radiculopathy, lumbar region; M19.90 Unspecified osteoarthritis, unspecified site; Z79.891 Long term (current) use of opiate analgesic; Z79.899 Other long term (current) drug therapy

== ENCOUNTER → 2020-09-01 | Outpatient (CLI) | payer OTHER | LOC: SJCVC 09:57 | PROVIDERS: ATTEND Internal Medicine Cardiovascular Disease | DX: R94.31 Abnormal electrocardiogram [ECG] [EKG] (principal); I49.5 Sick sinus syndrome; I42.8 Other cardiomyopathies; E11.22 Type 2 diabetes mellitus with diabetic chronic kidney disease; I13.0 Hypertensive heart and chronic kidney disease with heart failure and stage 1 through stage 4 chronic kidney disease, or unspecified chronic kidney disease; I12.9 Hypertensive chronic kidney disease with stage 1 through stage 4 chronic kidney disease, or unspecified chronic kidney disease; I50.30 Unspecified diastolic (congestive) heart failure; N18.9 Chronic kidney disease, unspecified; E03.9 Hypothyroidism, unspecified; N28.89 Other specified disorders of kidney and ureter; J45.909 Unspecified asthma, uncomplicated; I42.9 Cardiomyopathy, unspecified; M81.0 Age-related osteoporosis without current pathological fracture; Z90.710 Acquired absence of both cervix and uterus; Z98.890 Other specified postprocedural states; Z95.0 Presence of cardiac pacemaker; Z88.8 Allergy status to other drugs, medicaments and biological substances; Z79.01 Long term (current) use of anticoagulants; Z79.82 Long term (current) use of aspirin; Z79.899 Other long term (current) drug therapy; Z86.73 Personal history of transient ischemic attack (TIA), and cerebral infarction without residual deficits; Z82.49 Family history of ischemic heart disease and other diseases of the circulatory system ==

== ENCOUNTER 2020-10-05 12:23 | Inpatient (IN) | payer OTHER ==
[~2020-10-05] VITALS: Ht 152.4 cm; Wt 48.0 kg
[~2020-10-05 12:23] MED LIST changes: -LOPRESSOR25 PO; +LOPRESSOR50 PO
[2020-10-05 12:31] VITALS: BP 165/77
[2020-10-05 14:09] LABS: HEMATOCRIT 28.2 % (37.0-47.0); HEMOGLOBIN 8.8 gm/dL (12.0-15.0); MCH 26.5 pg (26.0-34.0); MCHC 31.2 g/dL (28.0-37.0); MCV 84.8 fL (80.0-100.0); RBC 3.32 mil/uL (4.20-5.00); RDW 20.8 % (10.5-14.5); WBC 8.2 thou/uL (4.0-11.0)
[2020-10-05 14:18] LABS: CALCIUM 8.6 mg/dL (8.5-10.1); CREATININE 2.2 mg/dL (0.6-1.0); POTASSIUM 3.4 mmol/L (3.5-5.1)
[2020-10-05 14:20] LABS: INR 2.2; PROTIME 22.7 Seconds (9.3-11.4)
[2020-10-05 15:24] VITALS: BP 165/77
[2020-10-05 16:57] VITALS: BP 142/63; BP 142/68; BP 143/65; BP 144/67; BP 150/60
[2020-10-05 17:30] VITALS: BP 142/68
--- NOTE | 2020-10-05 18:45 | NUR ---
PT ADMITTED TO CCU FROM REC ROOM POST OP FROM LEFT LEG WOUND EXPLORATION. AWAKE AND ALERT. NEURO INTACT. LEFT LEG ARTURO WRAPPED. PULSES INTACT WILL CONTTO MONITOR
[2020-10-05 18:53] LABS: HEMATOCRIT 22.8 % (37.0-47.0); HEMOGLOBIN 7.2 gm/dL (12.0-15.0); MCH 26.7 pg (26.0-34.0); MCHC 31.4 g/dL (28.0-37.0); MCV 85.1 fL (80.0-100.0); RBC 2.68 mil/uL (4.20-5.00); WBC 6.5 thou/uL (4.0-11.0)
[2020-10-05 19:06] VITALS: BP 140/79
[2020-10-05 19:06] LABS: INR 1.6; PROTIME 16.6 Seconds (9.3-11.4)
[2020-10-05 23:33] VITALS: BP 122/55
[2020-10-06 03:00] VITALS: BP 116/68
[2020-10-06 04:13] VITALS: BP 115/64
[2020-10-06 05:47] LABS: HEMATOCRIT 23.8 % (37.0-47.0); HEMOGLOBIN 7.7 gm/dL (12.0-15.0); MCH 27.6 pg (26.0-34.0); MCHC 32.2 g/dL (28.0-37.0); MCV 85.6 fL (80.0-100.0); RBC 2.78 mil/uL (4.20-5.00); RDW 19.5 % (10.5-14.5)
[2020-10-06 06:00] LABS: INR 1.5; PROTIME 15.5 Seconds (9.3-11.4)
--- NOTE | 2020-10-06 06:00 | NUR ---
PT AWAKE AND ALERT. PAIN MED X 2 FOR LLL DISCOMFORT. ARTURO WRAP INTACT. ONE UNIT PACKED CELLS FOR HGB OF 7.2 REPEAT HGB IS 7.7 GETS UP TO BEDSIDE COMMODE TO VOID. PROGRESSING TOWARD GOALS. WILL CONT TO MONITOR
[2020-10-06 06:01] LABS: ALBUMIN 2.5 g/dL (3.4-5.0); CALCIUM 8.1 mg/dL (8.5-10.1); CREATININE 1.9 mg/dL (0.6-1.0); PHOSPHORUS 3.2 mg/dL (2.5-4.9); POTASSIUM 3.8 mmol/L (3.5-5.1)
[2020-10-06 08:00] VITALS: BP 151/89
--- NOTE | 2020-10-06 09:37 | NUR ---
Pt voiced questions for why on heart healthy diet with restrictions. Advanced age 79, admit with hematoma to leg following injury. Liberalize diet since no heart concerns. Low nutrition risk
--- NOTE | 2020-10-06 11:24 | NUR ---
ASSUMING CARE, REPORT FROM IVONNE WIGGINS. MARIA GUADALUPE ARMENTA CP. DRESSING LLE CDI. AT BEDSIDE. PACED PER TELE.
[2020-10-06 11:30] VITALS: BP 124/65
[2020-10-06 15:30] VITALS: BP 121/76
[2020-10-06 19:20] VITALS: BP 115/48
[2020-10-07] VITALS (7 sets, daily range): BP systolic 124–140; BP diastolic 50–68
--- NOTE | 2020-10-07 04:42 | NUR ---
PT LEFT LEG IS WRAPED WITH ARTURO WRAP IS DRY AND INTACT. PAIN MEDS GIVEN FOR LEG PAIN SEE MAR FOR TIMEOF SMITNISTRATION. LUNGS ARE CLEAR. ABDOMEN IS SOFT. BOWEL SOUNDS ACITVE X4. UP WITH ASSISTANCE TO THE CHAIR OR COMMODE NEEDED. DRINKING SOME TEA. AND CRACKERS THIS AM AT THIS TIME. CALL LIGHT WITHIN REACH IF NEEDS ASSSSTANCE
[2020-10-07 05:30] LABS: HEMATOCRIT 23.9 % (37.0-47.0); HEMOGLOBIN 7.7 gm/dL (12.0-15.0); MCH 27.9 pg (26.0-34.0); MCHC 32.3 g/dL (28.0-37.0); MCV 86.6 fL (80.0-100.0); RBC 2.76 mil/uL (4.20-5.00); RDW 19.4 % (10.5-14.5); WBC 8.3 thou/uL (4.0-11.0)
--- NOTE | 2020-10-07 09:08 | NUR ---
Met with patient and spouse last evening. Patient reports she stratched leg on branch. Her leg began with painful swelling. Spouse had phys apt at [facility]. On way home she sustained hematoma that burst. Patient reports so much blood all over car and in ER. Patient reports extremely painful. She resides with spouse in independent home. 6 steps to entrance of home and 7 steps to main level of home. All needs on main level. Prior to admission independent with adls. No hx of HH or DME. Patient and spouse both drive. PCP Dr Rodriguez.
[2020-10-08] VITALS (8 sets, daily range): BP systolic 120–149; BP diastolic 59–82
--- NOTE | 2020-10-08 03:52 | NUR ---
PT IS ALERT AND OREINTED X4. LUNGS ARE CLEAR UP TO BEDSIDE COMMODE WITH ASSISTANCE FROM NURSING STAFF. LEFT LEG IS WRAPED IN KERLEC AND ARTURO WRAP. WITH LEFT LOWER WOUND AT THIS TIME. PAIN MEDS GIVEN NEEDED FOR WOUND PAIN AND COMPLAINTS OF HEADACHE. LUNGS ARE CLEAR. ON ROOM AIR. PT DOES HER CROSSWORDS PUZZLES . WILL CONTINUE TO MONITOR AND ASSESS PER NURSING AT THIS TIME AND ADRESS CARE.
[2020-10-08 05:36] LABS: PROTIME 11.1 Seconds (9.3-11.4)
[2020-10-08 05:37] LABS: RDW 19.7 % (10.5-14.5); WBC 7.9 thou/uL (4.0-11.0)
[2020-10-08 05:40] LABS: HEMATOCRIT 21.4 % (37.0-47.0); HEMOGLOBIN 6.8 gm/dL (12.0-15.0); MCH 27.9 pg (26.0-34.0); MCV 87.2 fL (80.0-100.0); RBC 2.45 mil/uL (4.20-5.00)
--- NOTE | 2020-10-08 14:50 | NUR ---
CARE TEAM ARE RECOMMENDING THAT PT HAVE HH SERVICES UPON DC. CM CALLED AND SPOKE WITH PT THIS AFTERNOON. SHE INDICATED THAT SHE ALSO NEEDED A FWW FOR HOME USE UPON DC. SHE THOUGHT SHE HAD ONE HAD BELONGED TO HER MOTHER BUT SHE HAD SINCE GIVEN IT AWAY. CM NOTIFIED PP LIAISON OF NEED FOR FWW. SHE INDICATED THAT SHE WOULD BE ABLE TO PROVIDE ONE PRIOR TO DC. PT WAS AWARE AND AGREEABLE TO HH SERVICES. SHE DIDN'T INDICATED A PREERENCE FOR PROVIDERS. KIERSTEN CONTACTED [facility] AND THEY GO TO [place] [id number]. CM FAXED REFERRAL TO [facility] FOR REVIEW FOR PT, OT, AND NURSING (WC) SERVICES UPON DC. AWAITING RESPONSE. POSSIBLE DC IN 1-2 DAYS. CM FOLLOWING REGARDING DC PLANNING NEEDS.
[2020-10-08 15:33] LABS: HEMOGLOBIN 9.4 gm/dL (12.0-15.0)
--- NOTE | 2020-10-08 17:54 | NUR ---
ASSUMED CARE SHIFT CHANGE. ASSESSMETNS CHARTED.MEDS GIVNE. VSS. HGB 6.8 TRANSFUSED 1 UNIT PRBC. HGB STABLE. SPOUSE VISITING PT BEDSIDE. C/O PAIN IN LEG MANAGED WITH PO PAIN MEDS. DRESSING CHANGED WITH ASSISTANCE FROM SURGERY, UOP ADEQUATE. DENIES NEEDS/CONCERNS AT THIS TIME. CONTINUING POC. WILL PASS ON REPORT TO TREVER CORONADO.
[2020-10-09 04:07] LABS: HEMATOCRIT 27.9 % (37.0-47.0); MCH 28.7 pg (26.0-34.0); MCHC 32.2 g/dL (28.0-37.0); MCV 89.1 fL (80.0-100.0); RBC 3.13 mil/uL (4.20-5.00); RDW 18.7 % (10.5-14.5); WBC 7.2 thou/uL (4.0-11.0)
[2020-10-09 04:35] VITALS: BP 142/77
[2020-10-09 04:39] LABS: PROTIME 10.7 Seconds (9.3-11.4)
--- NOTE | 2020-10-09 05:09 | NUR ---
PT UP AD ROBERTA TO BATHROOM. PAIN IN L LEG INCREASING, REQUIRING MORPHINE TO CONTROL. PULSES PRESENTX4, ALERT AND ORIENTED, HAVING TROUBLE RESTING THIS SHIFT.
[2020-10-09 07:45] VITALS: BP 128/72
--- NOTE | 2020-10-09 10:23 | NUR ---
Case discussed with the care team. No weekend dc anticipated. More surgical interventions anticipated. [facility] has been given a script for [place] [facility] [place] and they can accept her insurance plan. [facility] HENNESSY able to accept for hh f/u at [place]. Will follow.
[2020-10-09 11:40] VITALS: BP 139/82
[2020-10-09 14:35] VITALS: BP 121/64
[2020-10-09 19:32] VITALS: BP 121/58
[2020-10-10] VITALS (7 sets, daily range): BP systolic 112–151; BP diastolic 52–96
--- NOTE | 2020-10-10 03:35 | NUR ---
Assumed pt care at 1900. Pt is alert and oriented. No sign of distress noted in pt. Verbalized pain. Pain med administered upon request. Pt refused bed alarm to be on. Assessment completed and documented. Scheduled meds administered to pt. Tolerated PO intake. Pt slept through the night. No acute events. Continue to monitor. No further needs at this time.
[2020-10-10 03:52] LABS: HEMOGLOBIN 9.1 gm/dL (12.0-15.0); MCH 28.5 pg (26.0-34.0); MCHC 31.4 g/dL (28.0-37.0); MCV 90.6 fL (80.0-100.0); RBC 3.2 mil/uL (4.20-5.00); RDW 19.6 % (10.5-14.5); WBC 6.7 thou/uL (4.0-11.0)
--- NOTE | 2020-10-10 17:06 | NUR ---
ASSUMED CARE OF PT AT SHIFT CHANGE, ASSESSMENTS CHARTED. MEDS GIVEN PER SEP. PT A&OX4, C/O PAIN TREATED WITH PO MEDS WITH PARTIAL RELIEF. PT WALKED IN SUAREZ WITH TWICE. C/O LOOSE STOOLS, FEELING WEAK, TIRED. NOTIFIED DR LOERA, WHO ORDERED TEST FOR CDIFF. DR MCKEON CHANGED WOUND DRESSING. WILL CONTINUE TO MONITOR FOR CHANGES AND FOLLOW POC.
[2020-10-10 19:53] LABS: ALBUMIN 2.5 g/dL (3.4-5.0); CALCIUM 8.5 mg/dL (8.5-10.1); CREATININE 1.9 mg/dL (0.6-1.0); MAGNESIUM 2.1 mg/dL (1.8-2.4); POTASSIUM 4.2 mmol/L (3.5-5.1); TOTAL BILIRUBIN 0.3 mg/dL (0.2-1.0)
[2020-10-11] VITALS (7 sets, daily range): BP systolic 142–173; BP diastolic 72–99
--- NOTE | 2020-10-11 04:42 | NUR ---
Assessment as documented.Pt been sleeping most of the night.A/Ox4.vss.left leg dressing cdi.No active bleeding noted.Pt c/o pain that is controlled by the pain meds.diarrheax1.Pt admits to feeling much better and getting ready to go home.c-diff stool results pending.isolation maintained.
--- NOTE | 2020-10-11 18:38 | NUR ---
ASSUMED CARE OF PT AT SHIFT CHANGE. ASSESSMENTS CHARTED. MEDS GIVEN PER SEP. PT A&OX4, C/O PAIN TREATED WITH PO MEDS WITH PARTIAL RELIEF. CDIFF IS NEGATIVE, NO EPISODES OF DIARRHEA. THIS NURSE CHANGED DRESSING DR. MCKEON'S REQUEST. POSSIBLE DC HOME WITH HH TOMORROW. WILL CONTINUE TO MONITOR AND FOLLOW POC.
[2020-10-12 04:04] LABS: PROTIME 10.2 Seconds (9.3-11.4)
[2020-10-12 04:18] LABS: ALBUMIN 2.4 g/dL (3.4-5.0); CALCIUM 9.2 mg/dL (8.5-10.1); CREATININE 1.8 mg/dL (0.6-1.0); PHOSPHORUS 3.5 mg/dL (2.5-4.9); POTASSIUM 4.4 mmol/L (3.5-5.1)
[2020-10-12 04:20] VITALS: BP 142/61
--- NOTE | 2020-10-12 04:49 | NUR ---
REASSESSMENTS CHARTED, MEDS CHARTED GIVEN. PATIENT RESTING IN BED DURING SHIFT. C/O BANDAGES ON LEFT LEG ARE TOO TIGHT AT HER ANKLE AND FOOT. REWRAPPED ARTURO BANDAGE FROM TOES TO KNEE. PAIN MED GIVEN CHARTED. PLAN OF CARE IS FOR PATIENT TO POSSIBLY DISCHARGE THIS MORNING AND CONTINUE TREATMENT ON OUTPATIENT BASIS. FALL PRECAUTIONS IN PLACE DURING SHIFT.
[2020-10-12 07:45] VITALS: BP 146/91
[2020-10-12] MEDS ORDERED: AUGMENTIN 500-1 EACH PO (08:38)
[2020-10-12] MEDS ORDERED: WARFARIN SODIUM3 MG PO (08:39)
--- NOTE | 2020-10-12 08:55 | HC ---
[facility] [place] [address] CONSULTATION Name: JACOBO THAO Room #: 214-P ADM IN M.R.#: [id number] Admission: 10/05/20 Attend Phys: Reji Merlos Discharge: Date of : 42 Report #: [id number] THIS REPORT FOR: cc: Oral Rodriguez MD, Rene P. MD Stephens, Thad A. MD ~ DATE OF SERVICE: 10/08/2020 WOUND CARE CONSULTATION PERSONAL PHYSICIAN: Oral Rodriguez MD CHIEF COMPLAINT: Left lower extremity surgical wound. HISTORY OF PRESENT ILLNESS: This is a 79-year-old white female who presented through the Emergency Department for swollen left leg with hematoma, which started bleeding. The patient supposedly had significant amount of bleeding, which required the patient to be admitted. Surgery of Dr. Angel Luis Weems evaluated the patient and actually took her to surgery yesterday afternoon, evacuated the hematoma. The patient has been a patient of ours in the remote past and we were asked to follow the patient for wound care along with Dr. Weems. The patient states she bumped her leg the day prior to coming to the Emergency Department on a twig, did not break the skin and there was no bleeding initially. The patient then, however, developed significant hematoma along the medial aspect of the left calf, which spontaneously ruptured requiring evacuation. The patient denies any other associated wounds at this time. PAST MEDICAL HISTORY: Extensive for TIA, cardiac ablation, pacemaker placement, congestive heart failure, chronic back pain, hypertension, atrial fibrillation, hysterectomy. CURRENT MEDICATIONS: Multiple, I reviewed the patient's medication list. DRUG ALLERGIES: INCLUDE ____ ERYTHROMYCIN. SOCIAL HISTORY: The patient does not smoke or drink alcohol. She lives at home with her . FAMILY HISTORY: Not pertinent to current medical condition. REVIEW OF SYSTEMS: CONSTITUTIONAL: The patient denies fevers or chills. NEUROLOGIC: The patient has overall generalized weakness, but no isolated weakness in arms or legs. EYES: No complaints. [facility] [address] [place] [address] CONSULTATION Name: JACOBO THAO Room #: 214-P [place] M.R.#: [id number] Admission: 10/05/20 Attend Phys: Reji Merlos Discharge: Date of : 42 Report #: [id number] ENT: No complaints. CARDIAC: The patient has chronic lower extremity mild edema, but no associated chest pain or palpitations. RESPIRATORY: The patient denies shortness of breath, cough or wheezes. GASTROINTESTINAL: The patient denies nausea, vomiting or abdominal pain. GENITOURINARY: The patient denies urgency or frequency. MUSCULOSKELETAL: The patient has pain along her left calf region. SKIN: There is a surgical wound, status post evacuation of hematoma, left calf. PHYSICAL EXAMINATION: VITAL SIGNS: Stable. The patient is afebrile. GENERAL: This is an alert and oriented x 3, pleasant white female who is in mild distress secondary to symptoms. HEENT: Normocephalic, atraumatic. Mucous membranes are somewhat dry. Pupils are round. Sclerae white. NECK: Without JVD. LUNGS: Clear. HEART: Regular. ABDOMEN: Soft, nontender. EXTREMITIES: The patient moves all extremities without difficulty. Evaluation of left lower extremity reveals a surgical dressing, which is clean, dry and intact (the patient refuses to have me remove the dressing at this time, because it was just dressed). Bilateral heels are intact. Distal pulses are intact. NEUROLOGIC: Cranial nerves 2-12 grossly intact. Motor and sensory grossly intact. LABORATORY DATA: White count 7.9, hemoglobin 6.8, BUN 28, creatinine 1.9, albumin 2.5. IMPRESSION: 1. Surgical wound, left medial calf, now status post evacuation of hematoma. 2. Protein-calorie malnutrition -- severe with albumin of 2.5. 3. Generalized debility. 4. Anemia. PLAN: The patient was transfused for the anemia. Surgical dressing currently is Xeroform, ABD, Kerlix and Gunnar, which we will continue this time. Did speak with Dr. Weems, we will continue both to follow the patient while she is in the hospital and after discharge. We will follow the [place] [address] CONSULTATION Name: JACOBO THAO Room #: 214-P [place] M.R.#: [id number] Admission: 10/05/20 Attend Phys: Reji Merlos Discharge: Date of : 42 Report #: [id number] clinic. The patient is to elevate her leg as much as possible. We will continue all other current medications. I appreciate ability to consult. <ELECTRONICALLY SIGNED> By: Manuelito Washington MD 10/12/20 [id number] Manuelito Washington MD /nt
[2020-10-12 11:55] VITALS: BP 130/68
[2020-10-12 15:20] VITALS: BP 139/79
[2020-10-12 17:16] VITALS: BP 122/59
--- NOTE | 2020-10-12 18:41 | NUR ---
ASSUMED CARE OF PT AT SHIFT CHANGE. ASSESSMENTS CHARTED. MEDS GIVEN PER SEP. PT A&OX4, C/O PAIN TREATED WITH PO MEDS WITH PARTIAL RELIEF. DRESSING CHANGED. DISCHARGE ORDERS AND INSTRUCTIONS COMPLETE. RX GIVEN TO PT. NURSING STAFF TOOK PT OUT VIA WHEELCHAIR TO ER ENTRANCE TO WAITING IN CAR.
== END 2020-10-12 17:10 | disposition home health service (06) | DRG 299 ==
LOC: ER 12:23 → 2N 15:01 → EROBS 15:01 → 2N 18:32
PROVIDERS: Nurse Practitioner Family; Surgery; ADMIT Hospitalist; ATTEND Hospitalist
PROC: 30233K1 Transfusion of Nonautologous Frozen Plasma into Peripheral Vein, Percutaneous Approach (ICD-10-PCS; principal; 2020-10-05)
PROC: 0Y9J0ZZ Drainage of Left Lower Leg, Open Approach (ICD-10-PCS; principal; 2020-10-05)
PROC: 30233N1 Transfusion of Nonautologous Red Blood Cells into Peripheral Vein, Percutaneous Approach (ICD-10-PCS; 2020-10-06)
DX: I96 Gangrene, not elsewhere classified (principal); E43 Unspecified severe protein-calorie malnutrition; D62 Acute posthemorrhagic anemia; N39.0 Urinary tract infection, site not specified; R58 Hemorrhage, not elsewhere classified; S80.12XA Contusion of left lower leg, initial encounter; X58.XXXA Exposure to other specified factors, initial encounter; J45.909 Unspecified asthma, uncomplicated; M19.90 Unspecified osteoarthritis, unspecified site; G89.29 Other chronic pain; M54.9 Dorsalgia, unspecified; I11.0 Hypertensive heart disease with heart failure; R53.81 Other malaise; K21.9 Gastro-esophageal reflux disease without esophagitis; W22.8XXA Striking against or struck by other objects, initial encounter; E03.9 Hypothyroidism, unspecified; B96.20 Unspecified Escherichia coli [E. coli] as the cause of diseases classified elsewhere; I48.91 Unspecified atrial fibrillation; I50.9 Heart failure, unspecified; Z20.822 Contact with and (suspected) exposure to COVID-19; Z96.1 Presence of intraocular lens; Z88.1 Allergy status to other antibiotic agents; Z86.73 Personal history of transient ischemic attack (TIA), and cerebral infarction without residual deficits; Z98.42 Cataract extraction status, left eye; Z98.41 Cataract extraction status, right eye; Z79.899 Other long term (current) drug therapy; Z90.710 Acquired absence of both cervix and uterus; Z88.8 Allergy status to other drugs, medicaments and biological substances; Y99.8 Other external cause status; Z91.09 Other allergy status, other than to drugs and biological substances; Y93.89 Activity, other specified; Y92.89 Other specified places as the place of occurrence of the external cause; Z95.0 Presence of cardiac pacemaker; Z68.20 Body mass index [BMI] 20.0-20.9, adult
CPT/HCPCS: 10081; 50101; 50386; 57091; 62110; 62850

== ENCOUNTER → 2020-10-15 | Outpatient (CLI) | payer OTHER ==
[~2020-10-15] MED LIST changes: +AUGMENTIN 500-1 EACH PO; +WARFARIN SODIUM3 MG PO
== END ==
LOC: SJCVC 09:02
PROVIDERS: ATTEND Internal Medicine Cardiovascular Disease
DX: I48.0 Paroxysmal atrial fibrillation (principal); I49.5 Sick sinus syndrome; J45.909 Unspecified asthma, uncomplicated; E03.9 Hypothyroidism, unspecified; I11.0 Hypertensive heart disease with heart failure; I50.30 Unspecified diastolic (congestive) heart failure; E11.9 Type 2 diabetes mellitus without complications; Z86.73 Personal history of transient ischemic attack (TIA), and cerebral infarction without residual deficits; Z79.82 Long term (current) use of aspirin; Z79.899 Other long term (current) drug therapy; Z79.01 Long term (current) use of anticoagulants; Z82.49 Family history of ischemic heart disease and other diseases of the circulatory system; Z95.0 Presence of cardiac pacemaker

== ENCOUNTER → 2020-10-15 | Outpatient (CLI) | payer OTHER | LOC: HYPER 12:27 | PROVIDERS: ATTEND Emergency Medicine | DX: T81.31XA Disruption of external operation (surgical) wound, not elsewhere classified, initial encounter (principal); L97.822 Non-pressure chronic ulcer of other part of left lower leg with fat layer exposed; L84 Corns and callosities; I11.0 Hypertensive heart disease with heart failure; I50.9 Heart failure, unspecified; E03.9 Hypothyroidism, unspecified; G89.29 Other chronic pain; H40.9 Unspecified glaucoma; I48.91 Unspecified atrial fibrillation; J45.909 Unspecified asthma, uncomplicated; K31.84 Gastroparesis; K21.9 Gastro-esophageal reflux disease without esophagitis; M19.90 Unspecified osteoarthritis, unspecified site; F41.9 Anxiety disorder, unspecified; Z86.73 Personal history of transient ischemic attack (TIA), and cerebral infarction without residual deficits; Z95.0 Presence of cardiac pacemaker; Z98.41 Cataract extraction status, right eye; Z98.42 Cataract extraction status, left eye; Z90.710 Acquired absence of both cervix and uterus; Y92.238 Other place in hospital as the place of occurrence of the external cause; Y83.8 Other surgical procedures as the cause of abnormal reaction of the patient, or of later complication, without mention of misadventure at the time of the procedure ==

== ENCOUNTER → 2020-10-21 | Outpatient (CLI) | payer OTHER | LOC: HYPER 13:00 | PROVIDERS: ATTEND Emergency Medicine Emergency Medical Services | DX: T81.31XD Disruption of external operation (surgical) wound, not elsewhere classified, subsequent encounter (principal); L97.822 Non-pressure chronic ulcer of other part of left lower leg with fat layer exposed; L84 Corns and callosities; I11.0 Hypertensive heart disease with heart failure; I50.9 Heart failure, unspecified; E03.9 Hypothyroidism, unspecified; G89.29 Other chronic pain; H40.9 Unspecified glaucoma; I48.91 Unspecified atrial fibrillation; J45.909 Unspecified asthma, uncomplicated; K31.84 Gastroparesis; K21.9 Gastro-esophageal reflux disease without esophagitis; M19.90 Unspecified osteoarthritis, unspecified site; F41.9 Anxiety disorder, unspecified; Z86.73 Personal history of transient ischemic attack (TIA), and cerebral infarction without residual deficits; Z95.0 Presence of cardiac pacemaker; Z98.41 Cataract extraction status, right eye; Z98.42 Cataract extraction status, left eye; Z90.710 Acquired absence of both cervix and uterus; Y83.8 Other surgical procedures as the cause of abnormal reaction of the patient, or of later complication, without mention of misadventure at the time of the procedure ==

== ENCOUNTER → 2020-10-28 | Outpatient (CLI) | payer OTHER | LOC: HYPER 13:28 | PROVIDERS: ATTEND Emergency Medicine | DX: T81.31XD Disruption of external operation (surgical) wound, not elsewhere classified, subsequent encounter (principal); L97.822 Non-pressure chronic ulcer of other part of left lower leg with fat layer exposed; S80.12XD Contusion of left lower leg, subsequent encounter; L84 Corns and callosities; I11.0 Hypertensive heart disease with heart failure; I50.9 Heart failure, unspecified; E03.9 Hypothyroidism, unspecified; G89.29 Other chronic pain; H40.9 Unspecified glaucoma; I48.91 Unspecified atrial fibrillation; J45.909 Unspecified asthma, uncomplicated; K31.84 Gastroparesis; K21.9 Gastro-esophageal reflux disease without esophagitis; M19.90 Unspecified osteoarthritis, unspecified site; F41.9 Anxiety disorder, unspecified; Z86.73 Personal history of transient ischemic attack (TIA), and cerebral infarction without residual deficits; Z95.0 Presence of cardiac pacemaker; Z98.41 Cataract extraction status, right eye; Z98.42 Cataract extraction status, left eye; Z90.710 Acquired absence of both cervix and uterus; Y83.8 Other surgical procedures as the cause of abnormal reaction of the patient, or of later complication, without mention of misadventure at the time of the procedure ==

== ENCOUNTER → 2020-11-04 | Outpatient (CLI) | payer OTHER | LOC: HYPER 09:34 | PROVIDERS: ATTEND Emergency Medicine | DX: T81.31XD Disruption of external operation (surgical) wound, not elsewhere classified, subsequent encounter (principal); L97.822 Non-pressure chronic ulcer of other part of left lower leg with fat layer exposed; S80.12XD Contusion of left lower leg, subsequent encounter; L84 Corns and callosities; I11.0 Hypertensive heart disease with heart failure; I50.9 Heart failure, unspecified; E03.9 Hypothyroidism, unspecified; G89.29 Other chronic pain; H40.9 Unspecified glaucoma; I48.91 Unspecified atrial fibrillation; J45.909 Unspecified asthma, uncomplicated; K31.84 Gastroparesis; K21.9 Gastro-esophageal reflux disease without esophagitis; M19.90 Unspecified osteoarthritis, unspecified site; F41.9 Anxiety disorder, unspecified; Z86.73 Personal history of transient ischemic attack (TIA), and cerebral infarction without residual deficits; Z95.0 Presence of cardiac pacemaker; Z98.41 Cataract extraction status, right eye; Z98.42 Cataract extraction status, left eye; Z90.710 Acquired absence of both cervix and uterus; Y83.8 Other surgical procedures as the cause of abnormal reaction of the patient, or of later complication, without mention of misadventure at the time of the procedure ==

== ENCOUNTER → 2020-11-11 | Outpatient (CLI) | payer OTHER | LOC: HYPER 13:15 | PROVIDERS: ATTEND Emergency Medicine | DX: T81.31XD Disruption of external operation (surgical) wound, not elsewhere classified, subsequent encounter (principal); L97.822 Non-pressure chronic ulcer of other part of left lower leg with fat layer exposed; S80.12XD Contusion of left lower leg, subsequent encounter; L84 Corns and callosities; I11.0 Hypertensive heart disease with heart failure; I50.9 Heart failure, unspecified; E03.9 Hypothyroidism, unspecified; G89.29 Other chronic pain; H40.9 Unspecified glaucoma; I48.91 Unspecified atrial fibrillation; J45.909 Unspecified asthma, uncomplicated; K31.84 Gastroparesis; K21.9 Gastro-esophageal reflux disease without esophagitis; M19.90 Unspecified osteoarthritis, unspecified site; F41.9 Anxiety disorder, unspecified; Z86.73 Personal history of transient ischemic attack (TIA), and cerebral infarction without residual deficits; Z95.0 Presence of cardiac pacemaker; Z98.41 Cataract extraction status, right eye; Z98.42 Cataract extraction status, left eye; Z90.710 Acquired absence of both cervix and uterus; Y83.8 Other surgical procedures as the cause of abnormal reaction of the patient, or of later complication, without mention of misadventure at the time of the procedure ==

== ENCOUNTER → 2020-11-18 | Outpatient (CLI) | payer OTHER | LOC: HYPER 09:31 | PROVIDERS: ATTEND Emergency Medicine | DX: T81.31XD Disruption of external operation (surgical) wound, not elsewhere classified, subsequent encounter (principal); L97.822 Non-pressure chronic ulcer of other part of left lower leg with fat layer exposed; S80.12XD Contusion of left lower leg, subsequent encounter; L84 Corns and callosities; I11.0 Hypertensive heart disease with heart failure; I50.9 Heart failure, unspecified; E03.9 Hypothyroidism, unspecified; G89.29 Other chronic pain; H40.9 Unspecified glaucoma; I48.91 Unspecified atrial fibrillation; J45.909 Unspecified asthma, uncomplicated; K31.84 Gastroparesis; K21.9 Gastro-esophageal reflux disease without esophagitis; M19.90 Unspecified osteoarthritis, unspecified site; F41.9 Anxiety disorder, unspecified; Z86.73 Personal history of transient ischemic attack (TIA), and cerebral infarction without residual deficits; Z95.0 Presence of cardiac pacemaker; Z98.41 Cataract extraction status, right eye; Z98.42 Cataract extraction status, left eye; Z90.710 Acquired absence of both cervix and uterus; Y83.8 Other surgical procedures as the cause of abnormal reaction of the patient, or of later complication, without mention of misadventure at the time of the procedure ==

== ENCOUNTER → 2020-11-23 | Outpatient (CLI) | payer OTHER | END | disposition home or self-care (01) | LOC: LAB 09:02 | PROVIDERS: ATTEND Internal Medicine Cardiovascular Disease | DX: Z01.812 Encounter for preprocedural laboratory examination (principal); Z20.822 Contact with and (suspected) exposure to COVID-19 ==

== ENCOUNTER → 2020-11-25 | Outpatient (CLI) | payer OTHER ==
[~2020-11-25] MED LIST changes: +ASA81BEC PO
== END ==
LOC: HYPER 09:35
PROVIDERS: ATTEND Emergency Medicine
DX: T81.31XD Disruption of external operation (surgical) wound, not elsewhere classified, subsequent encounter (principal); L97.822 Non-pressure chronic ulcer of other part of left lower leg with fat layer exposed; S80.12XD Contusion of left lower leg, subsequent encounter; L84 Corns and callosities; I11.0 Hypertensive heart disease with heart failure; I50.9 Heart failure, unspecified; E03.9 Hypothyroidism, unspecified; G89.29 Other chronic pain; H40.9 Unspecified glaucoma; I48.91 Unspecified atrial fibrillation; J45.909 Unspecified asthma, uncomplicated; K31.84 Gastroparesis; K21.9 Gastro-esophageal reflux disease without esophagitis; M19.90 Unspecified osteoarthritis, unspecified site; F41.9 Anxiety disorder, unspecified; Z86.73 Personal history of transient ischemic attack (TIA), and cerebral infarction without residual deficits; Z95.0 Presence of cardiac pacemaker; Z98.41 Cataract extraction status, right eye; Z98.42 Cataract extraction status, left eye; Z90.710 Acquired absence of both cervix and uterus; X58.XXXD Exposure to other specified factors, subsequent encounter; Y83.8 Other surgical procedures as the cause of abnormal reaction of the patient, or of later complication, without mention of misadventure at the time of the procedure

== ENCOUNTER → 2020-11-26 | Outpatient (CLI) | payer OTHER ==
[~2020-11-26] VITALS: Ht 149.9 cm; Wt 50.8 kg
[2020-11-26 07:44] VITALS: BP 183/80
[2020-11-26 07:48] LABS: ABSOLUTE NEUTROPHILS 4.2 thou/uL (1.4-8.2); BASOPHILS 1.4 % (0.0-2.0); EOSINOPHILS 1.8 % (0.0-3.0); HEMATOCRIT 31.8 % (37.0-47.0); LYMPHOCYTES 22.8 % (24.0-44.0); MCH 27.3 pg (26.0-34.0); MCHC 31.6 g/dL (28.0-37.0); MCV 86.4 fL (80.0-100.0); MONOCYTES 12.4 % (1.0-8.0); PLATELET COUNT 278 thou/uL (150-400); POLYS 61.6 % (36.0-66.0); RBC 3.68 mil/uL (4.20-5.00); RDW 17.3 % (10.5-14.5); WBC 6.9 thou/uL (4.0-11.0)
[2020-11-26 07:56] LABS: APTT 29.1 Seconds (24.5-32.8); INR 1.14; PROTIME 12.4 Seconds (10.5-12.1)
[2020-11-26 07:57] LABS: CALCIUM 9.3 mg/dL (8.5-10.1); CREATININE 1.9 mg/dL (0.6-1.0); POTASSIUM 3.8 mmol/L (3.5-5.1)
[2020-11-26 08:03] LABS: ALBUMIN 3.3 g/dL (3.4-5.0); TOTAL BILIRUBIN 0.5 mg/dL (0.2-1.0); TOTAL PROTEIN 7.4 g/dL (6.4-8.2)
--- NOTE | 2020-11-27 08:40 | P ---
[facility] [place] [address] PROCEDURE REPORT Name: JACOBO THAO Room #: [facility]#: [id number] Admission: 11/26/20 Attend Phys: Jd Dyson MD Discharge: Date of : 42 Report #: [id number] THIS REPORT FOR: cc: Oral Rodriguez MD, Rene P. MD Couchonnal, Luis F. MD ~ DOC #: [id number] Jd Dyson MD DATE OF SERVICE: 11/26/2020 PROCEDURE: Pacemaker generator exchange. PREOPERATIVE DIAGNOSIS: Pacemaker elective replacement indication. POSTOPERATIVE DIAGNOSIS: Pacemaker elective replacement indication. INDICATIONS: The patient is a 79-year-old with history of sick sinus syndrome, status post pacemaker implantation, whose device is at [facility], here for generator exchange. ANESTHESIA: The patient underwent MAC anesthesia with no anesthesia-related complications. DESCRIPTION OF PROCEDURE: The patient underwent informed consent. We discussed the details of the procedure including the risks to include but not limited to bleeding, infection, vascular damage and need for possible lead revision. She understood these risks and is willing to proceed. She was brought to the EP laboratory in a fasting and sedated state, prepped and draped in a sterile fashion and received IV antibiotics in the form of vancomycin. Next, I injected lidocaine and made an incision just medial to the prior incision site to go into some healthier tissue. Next, the chronic pocket was entered and the device was in a submuscular location. I made sure to take care of any bleeding issues. The device was disconnected from the old leads. The leads were inspected and connected to the new device. Tug tests were performed. The leads were tested and atrial pacing threshold and sensing and impedances were within stable values. Device was placed in the pocket. Pocket was irrigated with vancomycin. The pocket was closed in two layers. Surgical glue was placed throughout her skin layer. The patient awoke neurologically and hemodynamically intact. No complications and no significant bleeding. The explanted device was a Medtronic ADDR03, serial #[id number], implanted on 04/15/2014. Newly implanted device was an ADDR03, serial number #[id number]. Atrial lead was a 4524, serial number #[id number], implanted on 12/22/1995. The RV lead was a Medtronic model #5026, serial #[id number], implanted on 02/17/1989. The atrial lead demonstrated P waves of 0.6 millivolts, pacing impedance of 221 ohms. The pacing threshold of 1 volt at 0.6 milliseconds. The RV lead demonstrated an R-wave of 5 millivolts, pacing impedance of 1021 ohms, pacing threshold 1.2 volts at 1 millisecond. [facility] [address] [place] [address] PROCEDURE REPORT Name: JACOBO THAO Room #: [facility]#: [id number] Admission: 11/26/20 Attend Phys: Jd Dyson MD Discharge: Date of : 42 Report #: [id number] atrial lead is programmed in the unipolar. Ventricular lead was placed in the bipolar mode. The device was set back to its original pacing parameters, DDDR 60-130 mode. CONCLUSION: 1. Successful pacemaker generator exchange. 2. Satisfactory atrial and ventricular pacing and sensing thresholds. MD FAYE Villafana/SON <ELECTRONICALLY SIGNED> By: Jd Dyson MD 11/27/20 0840 [id number] Jd Dyson MD /nt
== END | disposition home or self-care (01) ==
LOC: CATH 06:24
PROVIDERS: ATTEND Internal Medicine Cardiovascular Disease
DX: Z45.010 Encounter for checking and testing of cardiac pacemaker pulse generator [battery] (principal); I49.5 Sick sinus syndrome; I11.0 Hypertensive heart disease with heart failure; I50.9 Heart failure, unspecified; J45.909 Unspecified asthma, uncomplicated; M19.90 Unspecified osteoarthritis, unspecified site; D64.9 Anemia, unspecified; E03.9 Hypothyroidism, unspecified; K21.9 Gastro-esophageal reflux disease without esophagitis; Z98.890 Other specified postprocedural states; Z79.899 Other long term (current) drug therapy; Z87.19 Personal history of other diseases of the digestive system; Z86.73 Personal history of transient ischemic attack (TIA), and cerebral infarction without residual deficits; Z90.710 Acquired absence of both cervix and uterus; Z85.828 Personal history of other malignant neoplasm of skin; Z82.49 Family history of ischemic heart disease and other diseases of the circulatory system; Z87.442 Personal history of urinary calculi
CPT/HCPCS: 62110; 62900; 70005

== ENCOUNTER → 2020-11-30 | Outpatient (CLI) | payer OTHER ==
[~2020-11-30] VITALS: Ht 152.4 cm; Wt 48.3 kg
[2020-11-30 09:56] VITALS: BP 161/89
--- NOTE | 2020-11-30 10:14 | NUR ---
Pain Clinic Assessment: 1. History of Osteoarthritis: HANDS FEET BACK WRISTS History of Rheumatoid Arthritis: DENIES 2. Height: 5 ft. 0 in. 152.4 cm. Weight: 106.4 lb. oz. 48.263 kg. Patient's BMI: 20.8 3. Vital Signs: BP: 161/89 Pulse: 76 Resp: 16 Temp: 02 Sat: 100 ECG Mon: 4. Pain Intensity: 9 5. Fall Risk: Dizziness: N Needs help standing or walking: N Fallen in the last 3 months: N Fall risk comments: 6. Patient on Blood Thinner: Warfarin (Coumadin) 7. History of Hypertension: Y 8. Opioid Therapy greater than 6 weeks: Y Opiate Contract Signed: 08/03/17 9. Risk Assessment Tool Provided: LOW RISK 1 10. Functional Assessment Tool: 11. Recreational Drug Use: Never Drug Type: Tobacco Use: Never Smoker Tobacco Type: Amount or Packs/day: How Many Years: Alcohol Use: No Frequency: Quant:
== END ==
LOC: PAIN 08:56
PROVIDERS: ATTEND Clinical Nurse Specialist Adult Health
DX: G89.4 Chronic pain syndrome (principal); M96.1 Postlaminectomy syndrome, not elsewhere classified; M43.10 Spondylolisthesis, site unspecified; M19.90 Unspecified osteoarthritis, unspecified site; I49.5 Sick sinus syndrome; R00.0 Tachycardia, unspecified; J45.909 Unspecified asthma, uncomplicated; E11.9 Type 2 diabetes mellitus without complications; E03.9 Hypothyroidism, unspecified; I11.0 Hypertensive heart disease with heart failure; I50.9 Heart failure, unspecified; E53.8 Deficiency of other specified B group vitamins; Z86.73 Personal history of transient ischemic attack (TIA), and cerebral infarction without residual deficits; Z95.0 Presence of cardiac pacemaker; Z79.899 Other long term (current) drug therapy; Z79.891 Long term (current) use of opiate analgesic; Z79.82 Long term (current) use of aspirin; Z88.2 Allergy status to sulfonamides; Z88.1 Allergy status to other antibiotic agents; Z88.8 Allergy status to other drugs, medicaments and biological substances

== ENCOUNTER → 2020-12-02 | Outpatient (CLI) | payer OTHER | LOC: HYPER 08:58 | PROVIDERS: ATTEND Internal Medicine Hematology | DX: T81.31XD Disruption of external operation (surgical) wound, not elsewhere classified, subsequent encounter (principal); L97.822 Non-pressure chronic ulcer of other part of left lower leg with fat layer exposed; S80.12XD Contusion of left lower leg, subsequent encounter; L84 Corns and callosities; I11.0 Hypertensive heart disease with heart failure; I50.9 Heart failure, unspecified; E03.9 Hypothyroidism, unspecified; G89.29 Other chronic pain; H40.9 Unspecified glaucoma; I48.91 Unspecified atrial fibrillation; J45.909 Unspecified asthma, uncomplicated; K31.84 Gastroparesis; K21.9 Gastro-esophageal reflux disease without esophagitis; M19.90 Unspecified osteoarthritis, unspecified site; F41.9 Anxiety disorder, unspecified; Z86.73 Personal history of transient ischemic attack (TIA), and cerebral infarction without residual deficits; Z95.0 Presence of cardiac pacemaker; Z98.41 Cataract extraction status, right eye; Z98.42 Cataract extraction status, left eye; Z90.710 Acquired absence of both cervix and uterus; X58.XXXD Exposure to other specified factors, subsequent encounter; Y83.8 Other surgical procedures as the cause of abnormal reaction of the patient, or of later complication, without mention of misadventure at the time of the procedure ==

== ENCOUNTER → 2020-12-09 | Outpatient (CLI) | payer OTHER | LOC: HYPER 07:56 | PROVIDERS: ATTEND Emergency Medicine | DX: T81.31XD Disruption of external operation (surgical) wound, not elsewhere classified, subsequent encounter (principal); L97.822 Non-pressure chronic ulcer of other part of left lower leg with fat layer exposed; S80.12XD Contusion of left lower leg, subsequent encounter; L84 Corns and callosities; I11.0 Hypertensive heart disease with heart failure; I50.9 Heart failure, unspecified; E03.9 Hypothyroidism, unspecified; G89.29 Other chronic pain; H40.9 Unspecified glaucoma; I48.91 Unspecified atrial fibrillation; J45.909 Unspecified asthma, uncomplicated; K31.84 Gastroparesis; K21.9 Gastro-esophageal reflux disease without esophagitis; M19.90 Unspecified osteoarthritis, unspecified site; F41.9 Anxiety disorder, unspecified; Z86.73 Personal history of transient ischemic attack (TIA), and cerebral infarction without residual deficits; Z95.0 Presence of cardiac pacemaker; Z98.41 Cataract extraction status, right eye; Z98.42 Cataract extraction status, left eye; Z90.710 Acquired absence of both cervix and uterus; X58.XXXD Exposure to other specified factors, subsequent encounter; Y83.8 Other surgical procedures as the cause of abnormal reaction of the patient, or of later complication, without mention of misadventure at the time of the procedure ==

== ENCOUNTER → 2020-12-16 | Outpatient (CLI) | payer OTHER | LOC: HYPER 07:41 | PROVIDERS: ATTEND Emergency Medicine | DX: T81.31XD Disruption of external operation (surgical) wound, not elsewhere classified, subsequent encounter (principal); L97.822 Non-pressure chronic ulcer of other part of left lower leg with fat layer exposed; S80.12XD Contusion of left lower leg, subsequent encounter; L84 Corns and callosities; I11.0 Hypertensive heart disease with heart failure; I50.9 Heart failure, unspecified; E03.9 Hypothyroidism, unspecified; G89.29 Other chronic pain; H40.9 Unspecified glaucoma; I48.91 Unspecified atrial fibrillation; J45.909 Unspecified asthma, uncomplicated; K31.84 Gastroparesis; K21.9 Gastro-esophageal reflux disease without esophagitis; M19.90 Unspecified osteoarthritis, unspecified site; F41.9 Anxiety disorder, unspecified; Z86.73 Personal history of transient ischemic attack (TIA), and cerebral infarction without residual deficits; Z95.0 Presence of cardiac pacemaker; Z98.41 Cataract extraction status, right eye; Z98.42 Cataract extraction status, left eye; Z90.710 Acquired absence of both cervix and uterus; X58.XXXD Exposure to other specified factors, subsequent encounter; Y83.8 Other surgical procedures as the cause of abnormal reaction of the patient, or of later complication, without mention of misadventure at the time of the procedure ==

== ENCOUNTER → 2020-12-22 | Outpatient (CLI) | payer OTHER | LOC: SJCVC 09:37 | PROVIDERS: ATTEND Internal Medicine Cardiovascular Disease | DX: I48.0 Paroxysmal atrial fibrillation (principal); J45.909 Unspecified asthma, uncomplicated; E11.9 Type 2 diabetes mellitus without complications; E03.9 Hypothyroidism, unspecified; I11.0 Hypertensive heart disease with heart failure; I50.20 Unspecified systolic (congestive) heart failure; M81.0 Age-related osteoporosis without current pathological fracture; I25.5 Ischemic cardiomyopathy; Z98.890 Other specified postprocedural states; Z95.0 Presence of cardiac pacemaker; Z88.2 Allergy status to sulfonamides; Z88.1 Allergy status to other antibiotic agents; Z88.8 Allergy status to other drugs, medicaments and biological substances; Z88.5 Allergy status to narcotic agent; Z79.01 Long term (current) use of anticoagulants; Z79.82 Long term (current) use of aspirin; Z79.899 Other long term (current) drug therapy; Z86.73 Personal history of transient ischemic attack (TIA), and cerebral infarction without residual deficits; Z82.49 Family history of ischemic heart disease and other diseases of the circulatory system ==

== ENCOUNTER → 2020-12-23 | Outpatient (CLI) | payer OTHER | LOC: HYPER 15:01 | PROVIDERS: ATTEND Emergency Medicine | DX: T81.31XD Disruption of external operation (surgical) wound, not elsewhere classified, subsequent encounter (principal); L97.822 Non-pressure chronic ulcer of other part of left lower leg with fat layer exposed; S80.12XD Contusion of left lower leg, subsequent encounter; L84 Corns and callosities; I11.0 Hypertensive heart disease with heart failure; I50.9 Heart failure, unspecified; E03.9 Hypothyroidism, unspecified; G89.29 Other chronic pain; H40.9 Unspecified glaucoma; I48.91 Unspecified atrial fibrillation; J45.909 Unspecified asthma, uncomplicated; K31.84 Gastroparesis; K21.9 Gastro-esophageal reflux disease without esophagitis; M19.90 Unspecified osteoarthritis, unspecified site; F41.9 Anxiety disorder, unspecified; Z86.73 Personal history of transient ischemic attack (TIA), and cerebral infarction without residual deficits; Z95.0 Presence of cardiac pacemaker; Z98.41 Cataract extraction status, right eye; Z98.42 Cataract extraction status, left eye; Z90.710 Acquired absence of both cervix and uterus; X58.XXXD Exposure to other specified factors, subsequent encounter; Y83.8 Other surgical procedures as the cause of abnormal reaction of the patient, or of later complication, without mention of misadventure at the time of the procedure ==

== ENCOUNTER → 2021-01-04 | Outpatient (CLI) | payer OTHER | LOC: HYPER 07:43 | PROVIDERS: ATTEND Emergency Medicine Emergency Medical Services | DX: T81.31XD Disruption of external operation (surgical) wound, not elsewhere classified, subsequent encounter (principal); L97.822 Non-pressure chronic ulcer of other part of left lower leg with fat layer exposed; S80.12XD Contusion of left lower leg, subsequent encounter; L84 Corns and callosities; I11.0 Hypertensive heart disease with heart failure; I50.9 Heart failure, unspecified; E03.9 Hypothyroidism, unspecified; G89.29 Other chronic pain; H40.9 Unspecified glaucoma; I48.91 Unspecified atrial fibrillation; J45.909 Unspecified asthma, uncomplicated; K31.84 Gastroparesis; K21.9 Gastro-esophageal reflux disease without esophagitis; M19.90 Unspecified osteoarthritis, unspecified site; F41.9 Anxiety disorder, unspecified; Z86.73 Personal history of transient ischemic attack (TIA), and cerebral infarction without residual deficits; Z95.0 Presence of cardiac pacemaker; Z98.41 Cataract extraction status, right eye; Z98.42 Cataract extraction status, left eye; Z90.710 Acquired absence of both cervix and uterus; X58.XXXD Exposure to other specified factors, subsequent encounter; Y83.8 Other surgical procedures as the cause of abnormal reaction of the patient, or of later complication, without mention of misadventure at the time of the procedure ==

== ENCOUNTER → 2021-01-13 | Outpatient (CLI) | payer OTHER | LOC: HYPER 08:22 | PROVIDERS: ATTEND Emergency Medicine | DX: T81.31XD Disruption of external operation (surgical) wound, not elsewhere classified, subsequent encounter (principal); L97.822 Non-pressure chronic ulcer of other part of left lower leg with fat layer exposed; S80.12XD Contusion of left lower leg, subsequent encounter; L84 Corns and callosities; I11.0 Hypertensive heart disease with heart failure; I50.9 Heart failure, unspecified; E03.9 Hypothyroidism, unspecified; G89.29 Other chronic pain; H40.9 Unspecified glaucoma; I48.91 Unspecified atrial fibrillation; J45.909 Unspecified asthma, uncomplicated; K31.84 Gastroparesis; K21.9 Gastro-esophageal reflux disease without esophagitis; M19.90 Unspecified osteoarthritis, unspecified site; F41.9 Anxiety disorder, unspecified; Z86.73 Personal history of transient ischemic attack (TIA), and cerebral infarction without residual deficits; Z95.0 Presence of cardiac pacemaker; Z98.41 Cataract extraction status, right eye; Z98.42 Cataract extraction status, left eye; Z90.710 Acquired absence of both cervix and uterus; X58.XXXD Exposure to other specified factors, subsequent encounter; Y83.8 Other surgical procedures as the cause of abnormal reaction of the patient, or of later complication, without mention of misadventure at the time of the procedure ==

== ENCOUNTER → 2021-01-20 | Outpatient (CLI) | payer OTHER | LOC: HYPER 08:04 | PROVIDERS: ATTEND Emergency Medicine | DX: T81.31XD Disruption of external operation (surgical) wound, not elsewhere classified, subsequent encounter (principal); L97.822 Non-pressure chronic ulcer of other part of left lower leg with fat layer exposed; S80.12XD Contusion of left lower leg, subsequent encounter; L84 Corns and callosities; I11.0 Hypertensive heart disease with heart failure; I50.9 Heart failure, unspecified; E03.9 Hypothyroidism, unspecified; G89.29 Other chronic pain; H40.9 Unspecified glaucoma; I48.91 Unspecified atrial fibrillation; J45.909 Unspecified asthma, uncomplicated; K31.84 Gastroparesis; K21.9 Gastro-esophageal reflux disease without esophagitis; M19.90 Unspecified osteoarthritis, unspecified site; F41.9 Anxiety disorder, unspecified; Z86.73 Personal history of transient ischemic attack (TIA), and cerebral infarction without residual deficits; Z95.0 Presence of cardiac pacemaker; Z98.41 Cataract extraction status, right eye; Z98.42 Cataract extraction status, left eye; Z90.710 Acquired absence of both cervix and uterus; X58.XXXD Exposure to other specified factors, subsequent encounter; Y83.8 Other surgical procedures as the cause of abnormal reaction of the patient, or of later complication, without mention of misadventure at the time of the procedure ==

== ENCOUNTER → 2021-01-27 | Outpatient (CLI) | payer OTHER | LOC: HYPER 07:55 | PROVIDERS: ATTEND Emergency Medicine | DX: T81.31XD Disruption of external operation (surgical) wound, not elsewhere classified, subsequent encounter (principal); L97.822 Non-pressure chronic ulcer of other part of left lower leg with fat layer exposed; S80.12XD Contusion of left lower leg, subsequent encounter; M10.9 Gout, unspecified; M19.90 Unspecified osteoarthritis, unspecified site; M06.9 Rheumatoid arthritis, unspecified; I11.0 Hypertensive heart disease with heart failure; I50.9 Heart failure, unspecified; G89.29 Other chronic pain; M54.5 Low back pain; J45.909 Unspecified asthma, uncomplicated; H40.9 Unspecified glaucoma; E03.9 Hypothyroidism, unspecified; K21.9 Gastro-esophageal reflux disease without esophagitis; F41.9 Anxiety disorder, unspecified; Z86.73 Personal history of transient ischemic attack (TIA), and cerebral infarction without residual deficits; Z95.0 Presence of cardiac pacemaker; Z98.41 Cataract extraction status, right eye; Z98.42 Cataract extraction status, left eye; Z98.890 Other specified postprocedural states; Z85.828 Personal history of other malignant neoplasm of skin; X58.XXXD Exposure to other specified factors, subsequent encounter; Y83.8 Other surgical procedures as the cause of abnormal reaction of the patient, or of later complication, without mention of misadventure at the time of the procedure ==

== ENCOUNTER → 2021-02-03 | Outpatient (CLI) | payer OTHER | LOC: HYPER 07:54 | PROVIDERS: ATTEND Emergency Medicine | DX: T81.31XD Disruption of external operation (surgical) wound, not elsewhere classified, subsequent encounter (principal); L97.822 Non-pressure chronic ulcer of other part of left lower leg with fat layer exposed; S80.12XD Contusion of left lower leg, subsequent encounter; L84 Corns and callosities; M10.9 Gout, unspecified; M19.90 Unspecified osteoarthritis, unspecified site; M06.9 Rheumatoid arthritis, unspecified; I11.0 Hypertensive heart disease with heart failure; I50.9 Heart failure, unspecified; G89.29 Other chronic pain; M54.5 Low back pain; J45.909 Unspecified asthma, uncomplicated; H40.9 Unspecified glaucoma; E03.9 Hypothyroidism, unspecified; K21.9 Gastro-esophageal reflux disease without esophagitis; F41.9 Anxiety disorder, unspecified; Z86.73 Personal history of transient ischemic attack (TIA), and cerebral infarction without residual deficits; Z95.0 Presence of cardiac pacemaker; Z98.41 Cataract extraction status, right eye; Z98.42 Cataract extraction status, left eye; Z85.828 Personal history of other malignant neoplasm of skin; Z90.710 Acquired absence of both cervix and uterus; X58.XXXD Exposure to other specified factors, subsequent encounter; Y83.8 Other surgical procedures as the cause of abnormal reaction of the patient, or of later complication, without mention of misadventure at the time of the procedure ==

== ENCOUNTER → 2021-02-10 | Outpatient (CLI) | payer OTHER | LOC: HYPER 07:48 | PROVIDERS: ATTEND Emergency Medicine | DX: T81.31XD Disruption of external operation (surgical) wound, not elsewhere classified, subsequent encounter (principal); L97.822 Non-pressure chronic ulcer of other part of left lower leg with fat layer exposed; S80.12XD Contusion of left lower leg, subsequent encounter; L84 Corns and callosities; M10.9 Gout, unspecified; M19.90 Unspecified osteoarthritis, unspecified site; M06.9 Rheumatoid arthritis, unspecified; I11.0 Hypertensive heart disease with heart failure; I50.9 Heart failure, unspecified; G89.29 Other chronic pain; M54.5 Low back pain; J45.909 Unspecified asthma, uncomplicated; H40.9 Unspecified glaucoma; E03.9 Hypothyroidism, unspecified; K21.9 Gastro-esophageal reflux disease without esophagitis; F41.9 Anxiety disorder, unspecified; Z86.73 Personal history of transient ischemic attack (TIA), and cerebral infarction without residual deficits; Z95.0 Presence of cardiac pacemaker; Z98.41 Cataract extraction status, right eye; Z98.42 Cataract extraction status, left eye; Z85.828 Personal history of other malignant neoplasm of skin; Z90.710 Acquired absence of both cervix and uterus; X58.XXXD Exposure to other specified factors, subsequent encounter; Y83.8 Other surgical procedures as the cause of abnormal reaction of the patient, or of later complication, without mention of misadventure at the time of the procedure; I48.91 Unspecified atrial fibrillation ==

== ENCOUNTER → 2021-02-17 | Outpatient (CLI) | payer OTHER | LOC: HYPER 07:59 | PROVIDERS: ATTEND Emergency Medicine | DX: T81.31XD Disruption of external operation (surgical) wound, not elsewhere classified, subsequent encounter (principal); L97.822 Non-pressure chronic ulcer of other part of left lower leg with fat layer exposed; S80.12XD Contusion of left lower leg, subsequent encounter; L84 Corns and callosities; I11.0 Hypertensive heart disease with heart failure; I50.9 Heart failure, unspecified; I48.91 Unspecified atrial fibrillation; E03.9 Hypothyroidism, unspecified; G89.29 Other chronic pain; H40.9 Unspecified glaucoma; J45.909 Unspecified asthma, uncomplicated; K31.84 Gastroparesis; K21.9 Gastro-esophageal reflux disease without esophagitis; M54.5 Low back pain; M10.9 Gout, unspecified; M06.9 Rheumatoid arthritis, unspecified; F41.9 Anxiety disorder, unspecified; Z86.73 Personal history of transient ischemic attack (TIA), and cerebral infarction without residual deficits; Z95.0 Presence of cardiac pacemaker; Z98.41 Cataract extraction status, right eye; Z98.42 Cataract extraction status, left eye; Z85.828 Personal history of other malignant neoplasm of skin; Z90.710 Acquired absence of both cervix and uterus; X58.XXXD Exposure to other specified factors, subsequent encounter; Y83.8 Other surgical procedures as the cause of abnormal reaction of the patient, or of later complication, without mention of misadventure at the time of the procedure ==

== ENCOUNTER → 2021-02-24 | Outpatient (CLI) | payer OTHER | LOC: HYPER 09:30 | PROVIDERS: ATTEND Emergency Medicine Emergency Medical Services | DX: T81.31XD Disruption of external operation (surgical) wound, not elsewhere classified, subsequent encounter (principal); L97.822 Non-pressure chronic ulcer of other part of left lower leg with fat layer exposed; S80.12XD Contusion of left lower leg, subsequent encounter; L84 Corns and callosities; I11.0 Hypertensive heart disease with heart failure; I50.9 Heart failure, unspecified; I48.91 Unspecified atrial fibrillation; E03.9 Hypothyroidism, unspecified; G89.29 Other chronic pain; H40.9 Unspecified glaucoma; J45.909 Unspecified asthma, uncomplicated; K31.84 Gastroparesis; K21.9 Gastro-esophageal reflux disease without esophagitis; M54.5 Low back pain; M10.9 Gout, unspecified; M06.9 Rheumatoid arthritis, unspecified; F41.9 Anxiety disorder, unspecified; Z86.73 Personal history of transient ischemic attack (TIA), and cerebral infarction without residual deficits; Z95.0 Presence of cardiac pacemaker; Z98.41 Cataract extraction status, right eye; Z98.42 Cataract extraction status, left eye; Z85.828 Personal history of other malignant neoplasm of skin; Z90.710 Acquired absence of both cervix and uterus; X58.XXXD Exposure to other specified factors, subsequent encounter; Y83.8 Other surgical procedures as the cause of abnormal reaction of the patient, or of later complication, without mention of misadventure at the time of the procedure ==

== ENCOUNTER → 2021-02-25 | Outpatient (CLI) | payer OTHER ==
[~2021-02-25] VITALS: Ht 152.4 cm; Wt 47.5 kg
[2021-02-25 12:48] VITALS: BP 158/75
--- NOTE | 2021-02-25 13:55 | NUR ---
Pain Clinic Assessment: 1. History of Osteoarthritis: HANDS FEET BACK WRISTS History of Rheumatoid Arthritis: DENIES 2. Height: 5 ft. 0 in. 152.4 cm. Weight: 104.8 lb. oz. 47.537 kg. Patient's BMI: 20.5 3. Vital Signs: BP: 158/75 Pulse: 67 Resp: 14 Temp: 02 Sat: 100 ECG Mon: 4. Pain Intensity: 8 5. Fall Risk: Dizziness: N Needs help standing or walking: N Fallen in the last 3 months: N Fall risk comments: 6. Patient on Blood Thinner: Warfarin (Coumadin) 7. History of Hypertension: Y 8. Opioid Therapy greater than 6 weeks: Y Opiate Contract Signed: 08/03/17 9. Risk Assessment Tool Provided: LOW RISK 1 10. Functional Assessment Tool: 11. Recreational Drug Use: Never Drug Type: Tobacco Use: Never Smoker Tobacco Type: Amount or Packs/day: How Many Years: Alcohol Use: No Frequency: Quant:
== END ==
LOC: PAIN 07:56
PROVIDERS: ATTEND Clinical Nurse Specialist Adult Health
DX: G89.29 Other chronic pain (principal); M43.16 Spondylolisthesis, lumbar region; M47.26 Other spondylosis with radiculopathy, lumbar region; M19.042 Primary osteoarthritis, left hand; M19.041 Primary osteoarthritis, right hand; M19.032 Primary osteoarthritis, left wrist; M19.031 Primary osteoarthritis, right wrist; M19.072 Primary osteoarthritis, left ankle and foot; M19.071 Primary osteoarthritis, right ankle and foot; S81.802A Unspecified open wound, left lower leg, initial encounter; I10 Essential (primary) hypertension; Z88.8 Allergy status to other drugs, medicaments and biological substances; Z79.891 Long term (current) use of opiate analgesic; Z79.899 Other long term (current) drug therapy; X58.XXXA Exposure to other specified factors, initial encounter; Y93.89 Activity, other specified; Y92.89 Other specified places as the place of occurrence of the external cause; Y99.8 Other external cause status

== ENCOUNTER → 2021-03-03 | Outpatient (CLI) | payer OTHER | LOC: HYPER 08:17 | PROVIDERS: ATTEND Emergency Medicine | DX: T81.31XD Disruption of external operation (surgical) wound, not elsewhere classified, subsequent encounter (principal); L97.822 Non-pressure chronic ulcer of other part of left lower leg with fat layer exposed; S80.12XD Contusion of left lower leg, subsequent encounter; L84 Corns and callosities; I11.0 Hypertensive heart disease with heart failure; I50.9 Heart failure, unspecified; I48.91 Unspecified atrial fibrillation; E03.9 Hypothyroidism, unspecified; G89.29 Other chronic pain; H40.9 Unspecified glaucoma; J45.909 Unspecified asthma, uncomplicated; K31.84 Gastroparesis; K21.9 Gastro-esophageal reflux disease without esophagitis; M54.5 Low back pain; M10.9 Gout, unspecified; M06.9 Rheumatoid arthritis, unspecified; F41.9 Anxiety disorder, unspecified; Z86.73 Personal history of transient ischemic attack (TIA), and cerebral infarction without residual deficits; Z95.0 Presence of cardiac pacemaker; Z98.41 Cataract extraction status, right eye; Z98.42 Cataract extraction status, left eye; Z85.828 Personal history of other malignant neoplasm of skin; Z90.710 Acquired absence of both cervix and uterus; X58.XXXD Exposure to other specified factors, subsequent encounter; Y83.8 Other surgical procedures as the cause of abnormal reaction of the patient, or of later complication, without mention of misadventure at the time of the procedure ==

== ENCOUNTER → 2021-03-09 | Outpatient (CLI) | payer OTHER | LOC: SJCVC 11:14 | PROVIDERS: ATTEND Internal Medicine | DX: R94.31 Abnormal electrocardiogram [ECG] [EKG] (principal); I42.8 Other cardiomyopathies; E11.22 Type 2 diabetes mellitus with diabetic chronic kidney disease; I13.0 Hypertensive heart and chronic kidney disease with heart failure and stage 1 through stage 4 chronic kidney disease, or unspecified chronic kidney disease; I50.32 Chronic diastolic (congestive) heart failure; N18.9 Chronic kidney disease, unspecified; I48.0 Paroxysmal atrial fibrillation; J44.9 Chronic obstructive pulmonary disease, unspecified; E78.5 Hyperlipidemia, unspecified; I48.21 Permanent atrial fibrillation; M81.0 Age-related osteoporosis without current pathological fracture; Z88.8 Allergy status to other drugs, medicaments and biological substances; Z95.0 Presence of cardiac pacemaker; Z79.82 Long term (current) use of aspirin; Z79.01 Long term (current) use of anticoagulants; Z79.899 Other long term (current) drug therapy; Z86.73 Personal history of transient ischemic attack (TIA), and cerebral infarction without residual deficits; Z82.49 Family history of ischemic heart disease and other diseases of the circulatory system ==

== ENCOUNTER → 2021-03-10 | Outpatient (CLI) | payer OTHER | LOC: HYPER 11:05 | PROVIDERS: ATTEND Emergency Medicine | DX: T81.31XD Disruption of external operation (surgical) wound, not elsewhere classified, subsequent encounter (principal); L97.822 Non-pressure chronic ulcer of other part of left lower leg with fat layer exposed; S80.12XD Contusion of left lower leg, subsequent encounter; M19.90 Unspecified osteoarthritis, unspecified site; I11.0 Hypertensive heart disease with heart failure; I50.9 Heart failure, unspecified; J45.909 Unspecified asthma, uncomplicated; K31.84 Gastroparesis; G89.29 Other chronic pain; M54.6 Pain in thoracic spine; H40.9 Unspecified glaucoma; K21.9 Gastro-esophageal reflux disease without esophagitis; E03.9 Hypothyroidism, unspecified; F41.9 Anxiety disorder, unspecified; Z86.73 Personal history of transient ischemic attack (TIA), and cerebral infarction without residual deficits; Z95.0 Presence of cardiac pacemaker; Z98.49 Cataract extraction status, unspecified eye; Z98.890 Other specified postprocedural states; Z79.01 Long term (current) use of anticoagulants; Z79.899 Other long term (current) drug therapy; X58.XXXD Exposure to other specified factors, subsequent encounter; Y83.8 Other surgical procedures as the cause of abnormal reaction of the patient, or of later complication, without mention of misadventure at the time of the procedure ==

== ENCOUNTER → 2021-03-17 | Outpatient (CLI) | payer OTHER | LOC: HYPER 08:39 | PROVIDERS: ATTEND Emergency Medicine | DX: T81.31XD Disruption of external operation (surgical) wound, not elsewhere classified, subsequent encounter (principal); L97.822 Non-pressure chronic ulcer of other part of left lower leg with fat layer exposed; S80.12XD Contusion of left lower leg, subsequent encounter; M06.9 Rheumatoid arthritis, unspecified; J45.909 Unspecified asthma, uncomplicated; I11.0 Hypertensive heart disease with heart failure; I50.9 Heart failure, unspecified; K31.84 Gastroparesis; G89.29 Other chronic pain; M54.5 Low back pain; I48.91 Unspecified atrial fibrillation; H40.9 Unspecified glaucoma; E03.9 Hypothyroidism, unspecified; F41.9 Anxiety disorder, unspecified; Z95.0 Presence of cardiac pacemaker; Z86.73 Personal history of transient ischemic attack (TIA), and cerebral infarction without residual deficits; Z98.890 Other specified postprocedural states; Z90.710 Acquired absence of both cervix and uterus; Z85.828 Personal history of other malignant neoplasm of skin; Z79.01 Long term (current) use of anticoagulants; Z79.899 Other long term (current) drug therapy; Y83.8 Other surgical procedures as the cause of abnormal reaction of the patient, or of later complication, without mention of misadventure at the time of the procedure; X58.XXXD Exposure to other specified factors, subsequent encounter ==

== ENCOUNTER → 2021-03-24 | Outpatient (CLI) | payer OTHER | LOC: HYPER 09:17 | PROVIDERS: ATTEND Emergency Medicine | DX: T81.31XD Disruption of external operation (surgical) wound, not elsewhere classified, subsequent encounter (principal); L97.822 Non-pressure chronic ulcer of other part of left lower leg with fat layer exposed; S80.12XD Contusion of left lower leg, subsequent encounter; M06.9 Rheumatoid arthritis, unspecified; J45.909 Unspecified asthma, uncomplicated; I11.0 Hypertensive heart disease with heart failure; I50.9 Heart failure, unspecified; K31.84 Gastroparesis; G89.29 Other chronic pain; M54.5 Low back pain; I48.91 Unspecified atrial fibrillation; H40.9 Unspecified glaucoma; E03.9 Hypothyroidism, unspecified; F41.9 Anxiety disorder, unspecified; Z95.0 Presence of cardiac pacemaker; Z86.73 Personal history of transient ischemic attack (TIA), and cerebral infarction without residual deficits; Z90.710 Acquired absence of both cervix and uterus; Z85.828 Personal history of other malignant neoplasm of skin; Z79.01 Long term (current) use of anticoagulants; Z98.41 Cataract extraction status, right eye; Z98.42 Cataract extraction status, left eye; X58.XXXD Exposure to other specified factors, subsequent encounter; Y83.8 Other surgical procedures as the cause of abnormal reaction of the patient, or of later complication, without mention of misadventure at the time of the procedure ==

== ENCOUNTER → 2021-04-07 | Outpatient (CLI) | payer OTHER | LOC: HYPER 08:50 | PROVIDERS: ATTEND Emergency Medicine | DX: T81.31XD Disruption of external operation (surgical) wound, not elsewhere classified, subsequent encounter (principal); L97.822 Non-pressure chronic ulcer of other part of left lower leg with fat layer exposed; S80.12XD Contusion of left lower leg, subsequent encounter; J45.909 Unspecified asthma, uncomplicated; M06.9 Rheumatoid arthritis, unspecified; I11.0 Hypertensive heart disease with heart failure; I50.9 Heart failure, unspecified; K31.84 Gastroparesis; G89.29 Other chronic pain; M54.5 Low back pain; I48.91 Unspecified atrial fibrillation; H40.9 Unspecified glaucoma; E03.9 Hypothyroidism, unspecified; K21.9 Gastro-esophageal reflux disease without esophagitis; F41.9 Anxiety disorder, unspecified; Z86.73 Personal history of transient ischemic attack (TIA), and cerebral infarction without residual deficits; Z79.01 Long term (current) use of anticoagulants; Z98.890 Other specified postprocedural states; Z95.0 Presence of cardiac pacemaker; Z85.820 Personal history of malignant melanoma of skin; Z90.710 Acquired absence of both cervix and uterus; Z79.899 Other long term (current) drug therapy; X58.XXXD Exposure to other specified factors, subsequent encounter; Y83.8 Other surgical procedures as the cause of abnormal reaction of the patient, or of later complication, without mention of misadventure at the time of the procedure ==

== ENCOUNTER → 2021-04-21 | Outpatient (CLI) | payer OTHER | LOC: HYPER 08:13 | PROVIDERS: ATTEND Emergency Medicine | DX: T81.31XD Disruption of external operation (surgical) wound, not elsewhere classified, subsequent encounter (principal); I83.013 Varicose veins of right lower extremity with ulcer of ankle; L97.312 Non-pressure chronic ulcer of right ankle with fat layer exposed; L84 Corns and callosities; I48.91 Unspecified atrial fibrillation; R06.02 Shortness of breath; E03.9 Hypothyroidism, unspecified; I11.0 Hypertensive heart disease with heart failure; I50.9 Heart failure, unspecified; D64.9 Anemia, unspecified; R21 Rash and other nonspecific skin eruption; Z85.828 Personal history of other malignant neoplasm of skin; Z90.10 Acquired absence of unspecified breast and nipple; Z90.89 Acquired absence of other organs; Z96.651 Presence of right artificial knee joint; Z90.710 Acquired absence of both cervix and uterus; Z87.891 Personal history of nicotine dependence; Y83.8 Other surgical procedures as the cause of abnormal reaction of the patient, or of later complication, without mention of misadventure at the time of the procedure ==

== ENCOUNTER → 2021-04-28 | Outpatient (CLI) | payer OTHER | LOC: HYPER 08:08 | PROVIDERS: ATTEND Emergency Medicine | DX: T81.31XD Disruption of external operation (surgical) wound, not elsewhere classified, subsequent encounter (principal); L97.822 Non-pressure chronic ulcer of other part of left lower leg with fat layer exposed; S80.12XD Contusion of left lower leg, subsequent encounter; L84 Corns and callosities; I48.91 Unspecified atrial fibrillation; R06.02 Shortness of breath; E03.9 Hypothyroidism, unspecified; I11.0 Hypertensive heart disease with heart failure; I50.9 Heart failure, unspecified; D64.9 Anemia, unspecified; R21 Rash and other nonspecific skin eruption; H40.9 Unspecified glaucoma; J45.909 Unspecified asthma, uncomplicated; K21.9 Gastro-esophageal reflux disease without esophagitis; F41.9 Anxiety disorder, unspecified; Z85.828 Personal history of other malignant neoplasm of skin; Z90.10 Acquired absence of unspecified breast and nipple; Z96.651 Presence of right artificial knee joint; Z86.73 Personal history of transient ischemic attack (TIA), and cerebral infarction without residual deficits; Z90.710 Acquired absence of both cervix and uterus; Z87.891 Personal history of nicotine dependence; Z98.41 Cataract extraction status, right eye; Z98.42 Cataract extraction status, left eye; Z95.0 Presence of cardiac pacemaker; X58.XXXD Exposure to other specified factors, subsequent encounter; Y83.8 Other surgical procedures as the cause of abnormal reaction of the patient, or of later complication, without mention of misadventure at the time of the procedure ==

== ENCOUNTER → 2021-05-27 | Outpatient (CLI) | payer OTHER ==
[~2021-05-27] VITALS: Ht 152.4 cm; Wt 48.5 kg
[~2021-05-27] MED LIST changes: +JANTOVEN3 MG PO
--- NOTE | 2021-05-27 09:05 | NUR ---
Pain Clinic Assessment: 1. History of Osteoarthritis: HANDS FEET BACK WRISTS History of Rheumatoid Arthritis: DENIES 2. Height: ft. in. cm. Weight: lb. oz. kg. Patient's BMI: 3. Vital Signs: BP: Pulse: Resp: Temp: 02 Sat: ECG Mon: 4. Pain Intensity: 8 5. Fall Risk: Dizziness: Needs help standing or walking: Fallen in the last 3 months: Fall risk comments: 6. Patient on Blood Thinner: Warfarin (Coumadin) 7. History of Hypertension: Y 8. Opioid Therapy greater than 6 weeks: Y Opiate Contract Signed: 08/03/17 9. Risk Assessment Tool Provided: LOW RISK 1 10. Functional Assessment Tool: /70 11. Recreational Drug Use: Never Drug Type: Tobacco Use: Never Smoker Tobacco Type: Amount or Packs/day: How Many Years: Alcohol Use: No Frequency: Quant:
[2021-05-27 09:06] VITALS: BP 127/76
--- NOTE | 2021-05-27 09:09 | NUR ---
Pain Clinic Assessment: 1. History of Osteoarthritis: HANDS FEET BACK WRISTS History of Rheumatoid Arthritis: DENIES 2. Height: 5 ft. 0 in. 152.4 cm. Weight: 107.0 lb. oz. 48.535 kg. Patient's BMI: 20.9 3. Vital Signs: BP: 127/76 Pulse: 68 Resp: 16 Temp: 02 Sat: 97 ECG Mon: 4. Pain Intensity: 9 5. Fall Risk: Dizziness: N Needs help standing or walking: N Fallen in the last 3 months: N Fall risk comments: 6. Patient on Blood Thinner: Warfarin (Coumadin) 7. History of Hypertension: Y 8. Opioid Therapy greater than 6 weeks: Y Opiate Contract Signed: 08/03/17 9. Risk Assessment Tool Provided: LOW RISK 1 10. Functional Assessment Tool: 11. Recreational Drug Use: Never Drug Type: Tobacco Use: Never Smoker Tobacco Type: Amount or Packs/day: How Many Years: Alcohol Use: No Frequency: Quant:
== END ==
LOC: PAIN 08:40
PROVIDERS: ATTEND Clinical Nurse Specialist Adult Health
DX: G89.29 Other chronic pain (principal); M43.16 Spondylolisthesis, lumbar region; M96.1 Postlaminectomy syndrome, not elsewhere classified; M19.09 Primary osteoarthritis, other specified site; Z88.8 Allergy status to other drugs, medicaments and biological substances; Z79.82 Long term (current) use of aspirin; Z79.899 Other long term (current) drug therapy

== ENCOUNTER → 2021-07-19 | Outpatient (CLI) | payer OTHER | LOC: SJCVCIMAG 08:17 | PROVIDERS: ATTEND Internal Medicine | DX: R94.31 Abnormal electrocardiogram [ECG] [EKG] (principal); I08.8 Other rheumatic multiple valve diseases; I13.0 Hypertensive heart and chronic kidney disease with heart failure and stage 1 through stage 4 chronic kidney disease, or unspecified chronic kidney disease; E11.22 Type 2 diabetes mellitus with diabetic chronic kidney disease; I50.32 Chronic diastolic (congestive) heart failure; N18.9 Chronic kidney disease, unspecified; I42.8 Other cardiomyopathies; I48.0 Paroxysmal atrial fibrillation; E78.5 Hyperlipidemia, unspecified; J44.9 Chronic obstructive pulmonary disease, unspecified; E03.9 Hypothyroidism, unspecified; I42.9 Cardiomyopathy, unspecified; Z95.0 Presence of cardiac pacemaker; Z88.2 Allergy status to sulfonamides; Z88.8 Allergy status to other drugs, medicaments and biological substances; Z79.82 Long term (current) use of aspirin; Z79.01 Long term (current) use of anticoagulants; Z79.899 Other long term (current) drug therapy ==

== ENCOUNTER → 2021-07-27 | Outpatient (CLI) | payer OTHER | LOC: SJCVC 10:39 | PROVIDERS: ATTEND Internal Medicine | DX: Z51.81 Encounter for therapeutic drug level monitoring (principal); Z79.899 Other long term (current) drug therapy ==

== ENCOUNTER → 2021-07-28 | Outpatient (CLI) | payer OTHER | LOC: SJCVCIMAG 08:45 | PROVIDERS: ATTEND Internal Medicine | DX: I08.1 Rheumatic disorders of both mitral and tricuspid valves (principal); R06.02 Shortness of breath; R60.0 Localized edema; I50.9 Heart failure, unspecified; I48.91 Unspecified atrial fibrillation; I63.9 Cerebral infarction, unspecified; J44.9 Chronic obstructive pulmonary disease, unspecified; I49.5 Sick sinus syndrome; Z95.0 Presence of cardiac pacemaker ==

== ENCOUNTER → 2021-08-11 | Outpatient (CLI) | payer OTHER | LOC: SJCVCIMAG 14:02 | PROVIDERS: ATTEND Internal Medicine | DX: M79.605 Pain in left leg (principal); M79.604 Pain in right leg; M79.89 Other specified soft tissue disorders; I87.2 Venous insufficiency (chronic) (peripheral); E11.9 Type 2 diabetes mellitus without complications; E03.9 Hypothyroidism, unspecified; Z82.49 Family history of ischemic heart disease and other diseases of the circulatory system; Z88.2 Allergy status to sulfonamides; Z88.1 Allergy status to other antibiotic agents; Z88.8 Allergy status to other drugs, medicaments and biological substances; Z79.82 Long term (current) use of aspirin; Z79.01 Long term (current) use of anticoagulants; Z79.899 Other long term (current) drug therapy ==

== ENCOUNTER → 2021-08-30 | Outpatient (CLI) | payer OTHER ==
[~2021-08-30] VITALS: Ht 152.4 cm; Wt 47.6 kg
[2021-08-30 10:07] VITALS: BP 134/74
--- NOTE | 2021-08-30 10:28 | NUR ---
Pain Clinic Assessment: 1. History of Osteoarthritis: HANDS FEET BACK WRISTS History of Rheumatoid Arthritis: DENIES 2. Height: 5 ft. 0 in. 152.4 cm. Weight: 105.0 lb. oz. 47.628 kg. Patient's BMI: 20.5 3. Vital Signs: BP: 134/74 Pulse: 63 Resp: 14 Temp: 02 Sat: 100 ECG Mon: 4. Pain Intensity: 9-10 W/ACTIVITY 5. Fall Risk: Dizziness: N Needs help standing or walking: N Fallen in the last 3 months: N Fall risk comments: 6. Patient on Blood Thinner: Warfarin (Coumadin) 7. History of Hypertension: Y 8. Opioid Therapy greater than 6 weeks: Y Opiate Contract Signed: 08/03/17 9. Risk Assessment Tool Provided: LOW RISK 1 10. Functional Assessment Tool: / 11. Recreational Drug Use: Never Drug Type: Tobacco Use: Never Smoker Tobacco Type: Amount or Packs/day: How Many Years: Alcohol Use: No Frequency: Quant:
== END ==
LOC: PAIN 09:31
PROVIDERS: ATTEND Clinical Nurse Specialist Adult Health
DX: G89.29 Other chronic pain (principal); M15.9 Polyosteoarthritis, unspecified; M47.26 Other spondylosis with radiculopathy, lumbar region; J98.4 Other disorders of lung; Z88.8 Allergy status to other drugs, medicaments and biological substances; F11.90 Opioid use, unspecified, uncomplicated; Z79.82 Long term (current) use of aspirin

== ENCOUNTER → 2021-09-15 | Outpatient (CLI) | payer OTHER | LOC: SJCVC 11:08 | PROVIDERS: ATTEND Internal Medicine | DX: R94.31 Abnormal electrocardiogram [ECG] [EKG] (principal); I13.0 Hypertensive heart and chronic kidney disease with heart failure and stage 1 through stage 4 chronic kidney disease, or unspecified chronic kidney disease; N18.32 Chronic kidney disease, stage 3b; E11.22 Type 2 diabetes mellitus with diabetic chronic kidney disease; I50.32 Chronic diastolic (congestive) heart failure; I42.8 Other cardiomyopathies; I48.0 Paroxysmal atrial fibrillation; E78.5 Hyperlipidemia, unspecified; J44.9 Chronic obstructive pulmonary disease, unspecified; U09.9 Post COVID-19 condition, unspecified; E03.9 Hypothyroidism, unspecified; Z95.0 Presence of cardiac pacemaker; Z88.1 Allergy status to other antibiotic agents; Z88.2 Allergy status to sulfonamides; Z88.8 Allergy status to other drugs, medicaments and biological substances; Z79.82 Long term (current) use of aspirin; Z79.899 Other long term (current) drug therapy; Z79.01 Long term (current) use of anticoagulants; Z82.49 Family history of ischemic heart disease and other diseases of the circulatory system ==